=== PATIENT | male | born 1945 | race Caucasian/White ===

== ENCOUNTER 2016-06-01 19:35 | Emergency (ER) | payer OTHER, MEDICARE ==
[~2016-06-01] VITALS: Ht 188 cm; Wt 140.5 kg
[~2016-06-01 19:35] MED LIST: AMOX500C3 PO; CLOP1TAB15 PO; CLTP PO; CRS10 PO; CYAN3INJ IM; FLM4 PO; GLC500 PO; INSU70IN2 SC; METO25TA3 PO; NRN100 PO; PEDICHW50 PO; VENL75TA4 PO
[2016-06-01 19:38] VITALS: TEMP 36.8; Ht 188 cm; Wt 140.5 kg
[2016-06-01] MEDS ORDERED: DULO60CA44 PO (19:59)
[2016-06-01] MEDS ORDERED: CIPROFLOXACIN HCL 0.3% OP SOLN 2.5 ML BTL OP STA (21:03)
--- NOTE | 2016-06-01 21:07 | EMERGENCY ROOM VISIT NOTE ---
History First contact with patient: 19:55 Chief Complaint: EYE ASSESSMENT Stated Complaint: RIGHT EYE BLOODSHOT History of Present Illness The patient is a 70 year old male who presents to the Emergency Room with complaints of "right eye blood shot". This began at approximately 4:30 PM when he was sitting on the couch and noticed his right eye became itchy. He rates the irritation as 2-3/10 but not painful. He is on plavix for a stent placement. His is concerned due to the spreading redness of the eye. He denies any vision changes, trauma to the eye, getting anything into the eye, or hx of glaucoma. He was to see his eye doctor last month and had a cataract removed nearly 1 year ago. . Review of Systems A complete 6-point Review of Systems was discussed with the patient, with pertinent positives and negatives listed in the History of Present Illness. All remaining Review of Systems questions can be considered negative unless otherwise specified. Past Medical/Surgical History Medical Problems: (1) Diabetic peripheral neuropathy associated with type 2 diabetes mellitus (2) Dysesthesia (3) Loss of sensation DM, Heart disease, HTN, Urinary problems Family History DM, Heart disease, HTN Social History Smoking Status: Never Smoker Drug Use: none Marital Status: Occupation Status: retired Social History: Patient lives at home with . Current/Historical Medications Scheduled Amoxicillin (Amoxil), 2,000 MG PO UD Calcium/Vitamin D (Caltrate 600 Plus *), 1 TAB PO BID Clopidogrel (Plavix), 75 MG PO QAM Cyanocobalamin (Vitamin B-12 Inj), 1 ML IM MONTHLY Duloxetine Hcl (Cymbalta), 60 MG PO BID Gabapentin (Gabapentin), 300 MG PO TID Insulin Isophan/Regular (Novolin 70/30), 36 UNITS SC QAM Insulin Isophan/Regular (Novolin 70/30), 26 UNITS SC QPM Metformin HCL (Glucophage *), 1,000 MG PO BID Metoprolol Succ (Toprol Xl) (Toprol-Xl), 25 MG PO BID Pediatric Multiple Vitamin W/ (Flintstones Chewable), 1 TAB PO BID Rosuvastatin Calcium (Crestor *), 10 MG PO QPM Tamsulosin Hcl (Flomax *), 0.8 MG PO HS Allergies Coded Allergies: Aspirin (Verified Allergy, Intermediate, HIVES, 06/01/16) Physical Exam Vital Signs Date Time Temp Pulse Resp B/P Pulse Ox O2 Delivery O2 Flow Rate FiO2 06/01/16 21:35 78 20 143/78 96 06/01/16 19:38 36.8 71 18 148/81 94 Room Air Right Eye Acuity: 20/20 -2 corrected Left Eye Acuity: 20/20 corrected Physical Exam VITAL SIGNS - Vital signs and nursing notes were reviewed. GENERAL - 70-year-old male appearing his stated age who is in no acute distress. Communicates well with provider and answers questions appropriately. SKIN - Without rashes. HEAD - NC/AT. No evidence of bruising. No Kidd's Sign or Raccoon's Eyes. No depressed skull fractures palpable. EYES - PERRL with EOMI bilaterally. Sclera anicteric. Evidence of subconjunctival hemorrhage in the right eye. Slit lamp examination performed as further described. EARS - No deformities of external structures noted on gross examination bilaterally. No hemorrhage from the ear canals. NOSE - Midline and without cyanosis. No epistaxis or purulent drainage noted. Septum midline without deviation or septal hematoma noted. MOUTH/OROPHARYNX - Without perioral cyanosis. Buccal mucosa pink and moist and without leukoplakia. Tongue midline with equal elevation of palate bilaterally. No tonsillar hypertrophy, erythema, or exudates noted. Good dentition noted. Slit Lamp Examination was performed of the right eye(s). The affected eye(s) were stained with Fluorescein stain to precipitate adequate visualization of any conjunctival/scleral excoriations or ulcers. The patient's face was comfortably rested on the chin guard of the slit lamp apparatus. The lights were dimmed and the affected eye(s) were thoroughly examined under microscopy using the blue light. 7:00 right eye corneal uptake was present not over the central axis of vision. This is consistent either with a localized abrasion or early corneal ulcer. Additionally, the eye(s) were examined under microscopy using the regular light. Close examination revealed subconjunctival hemorrhage without hyphema. Patient tolerated the procedure well and no complications were met. Medical Decision & Procedures Medications Administered Medications (Trade) Dose Ordered Sig/David Route Start Time Stop Time Status Last Admin Dose Admin Ciprofloxacin HCl (Ciprofloxacin 0.3% Op Soln) 2 drops NOW STAT OP 06/01/16 21:03 06/01/16 21:05 DC 06/01/16 21:34 2 DROPS Medical Decision Patient was seen and evaluated as above. After obtaining a thorough history and physical examination it was evident the patient was experiencing a subconjunctival hemorrhage in the right eye likely exacerbated by his Plavix use. The patient noted that before he looked in the mirror at his eye he was scratching it thinking that he had something in the eye. This likely precipitated the subconjunctival hemorrhage. There does not appear to be any current bleeding or involvement within the iris or pupil region. No hyphema. Negative Julianna sign. Because the uptake at the 4 o'clock position in a circular nature that is consistent with a likely corneal abrasion he will be placed on Ciloxan eyedrops 2 drops in the eye 4 times daily. The case was discussed with my attending and decision was made to contact the on-call clothes shaker. I spoke with Dr. Nicholson at 9:01 PM on 06/01/2016 and the case was explained to him. He recommended placing the patient on a ciprofloxacin eyedrops 4 times daily and having him follow-up with his clothes shaker tomorrow. Patient seemed happy with plan of care. Patient was provided with a bottle of the ciprofloxacin drops here and that will last him the duration. He is to call his clothes shaker tomorrow which is Dr. Bobo, and request follow-up. He was instructed to return with any concerns or problems. They were educated up on worrisome symptoms in which to return. He was repeatedly instructed to not skip his Plavix dose. They have questions answered prior to discharge and he was discharged home in good condition. In the evaluation and treatment of this patient following differential diagnoses were entertained: Corneal abrasion, subconjunctival hemorrhage, among others. Impression Primary Impression: Subconjunctival hemorrhage of right eye Additional Impression: Corneal abrasion Departure Information Dispostion Home / Self-Care Condition GOOD Referrals Pro,Gm Akbar M.D. (PCP) Navid Bobo M.D. Patient Instructions A Signature Page, My [facility] Additional Instructions You have been treated in the Emergency Department today for your Corneal Abrasion and Subconjunctival hemorrhage. You have been prescribed Ciloxan eye drops. This is an antibiotic which will help to prevent an infection from developing in your affected eye. You should use 2 drops in the affected eye every 4 hours for a 7-day course for these antibiotic eye drops. For pain control, you can use the following [id number] medicines (if >12 yo): - Regular strength (325mg/tab) Tylenol (acetaminophen) 2 tabs every 4-6 hours as needed. Do not exceed 12 tablets in a 24 hour period. Avoid taking more than 4 grams (4000 mg) of Tylenol per day. This includes any other sources of acetaminophen you may take on a regular basis. You should relax in a quiet, dark place for the rest of the day. You should wear sunglasses while outside for the next few days until your eyes are not as sensitive to the light. Please call Dr. Robles's office first thing tomorrow morning to schedule follow-up. Please request to be seen as soon as possible and indicated he receiving the emergency department. Return to the Emergency Department if your current symptoms worsen despite treatment course outlined above, or if you develop any of the following symptoms : intractable pain, visual disturbances, loss of vision, increased redness, swelling, drainage, or if you develop a fever. Please return to the emergency department with any new/concerning symptoms.
[2016-06-01 21:35] VITALS: BP 143/78; PULSE 78; O2SAT 96
--- NOTE | 2016-06-01 21:38 | EMERGENCY ROOM VISIT NOTE ---
ED Visit Note First contact with patient: 19:55 The patient was seen and examined with Nelson Estrella PA-C. I agree with the history, physical and findings. Please see the note for disposition and details.
[2016-10-27] MEDS ORDERED: CPR500 PO (13:56)
[2016-10-27] MEDS ORDERED: HYDR-5688 PO (14:00)
[2016-10-30] MEDS ORDERED: LOSA25TA18 PO (09:38)
[2016-10-30] MEDS ORDERED: TRAM-10 PO (09:38)
[2016-11-06] MEDS ORDERED: HYDR-5688 PO (12:27)
[2016-11-06] MEDS ORDERED: PHEN-775 PO (12:27)
[2016-11-06] MEDS ORDERED: POTATAB2 PO (14:25)
== END 2016-06-01 21:36 | disposition home or self-care (01) ==
LOC: C.EDB 19:36 → C.EDD 21:36
DX: H11.31 Conjunctival hemorrhage, right eye (principal); S05.01XA Injury of conjunctiva and corneal abrasion without foreign body, right eye, initial encounter; X58.XXXA Exposure to other specified factors, initial encounter; Z79.4 Long term (current) use of insulin; I10 Essential (primary) hypertension; E11.40 Type 2 diabetes mellitus with diabetic neuropathy, unspecified

== ENCOUNTER → 2016-09-25 | Outpatient (CLI) | payer OTHER, MEDICARE ==
[~2016-09-25] MED LIST changes: +CALCCAP17 PO; +CPR500 PO; +CRS/10 PO; +CYNI1000 PO; +DULO60CA44 PO; +GABA-112 PO; +HYDR-5688 PO; +LOSA25TA18 PO; +METF-841 PO; +PHEN-775 PO; +POTATAB2 PO; +TAMS0.4C38 PO; +TRAM-10 PO; -VENL75TA4 PO
[2016-09-25 10:45] LABS: BASO % 0.2 %; BASO ABS # 0.02 K/uL (0-0.2); COMPLETE YES; EOS % 2.9 %; HEMATOCRIT 40.6 % (42-52); IG% 0.1 %; LYMPH % 17.4 %; LYMPH ABS # 1.62 K/uL (1.2-3.4); MEAN CELL VOLUME 89.6 fL (80-100); MEAN CORPUSCULAR HGB CONC 31.3 g/dl (32-36); MEAN PLATELET VOLUME 10.8 fL (7.4-10.4); MONO % 10.7 %; NEUT % 68.7 %; PLATELET COUNT 144 K/uL (130-400); RED BLOOD COUNT 4.53 M/uL (4.7-6.1); WHITE BLOOD COUNT 9.31 K/uL (4.8-10.8)
[2016-09-25 10:56] LABS: ESTIMATED AVERAGE GLUCOSE 157 mg/dl; HA1C FLAG Normal (Normal)
[2016-09-25 10:57] LABS: URINE APPEARANCE TURBID (CLEAR); URINE COLOR DK YELLOW; URINE NITRITE NEG (NEG); URINE SPECIFIC GRAVITY 1.028 (1.000-1.030); UROBILINOGEN NEG (NEG); ZZUR CULT IF INDIC CLEAN CATCH YES
[2016-09-25 11:01] LABS: URINE BILIRUBIN 1+ (NEG)
[2016-09-25 11:02] LABS: MANUAL MICROSCOPIC REQUIRED? NO; REVIEW REQ? NO
[2016-09-25 11:11] LABS: CALCIUM 9.3 mg/dl (8.5-10.1)
[2016-09-25 11:14] LABS: BLOOD UREA NITROGEN 25 mg/dl (7-18); BUN/CREATININE RATIO 20.9 (10-20); CARBON DIOXIDE 30 mmol/L (21-32); CHLORIDE 101 mmol/L (98-107); GLUCOSE 132 mg/dl (70-99); POTASSIUM 3.9 mmol/L (3.5-5.1); SODIUM 136 mmol/L (136-145)
[2016-09-25 11:20] LABS: FERRITIN 218.9 ng/ml (8.0-388.0); TOTAL IRON BINDING CAPACITY 301 mcg/dl (250-450)
--- NOTE | 2016-10-01 12:01 | CODING QUERY MEDICAL NECESSITY ---
CQSUPPORTING DIAGNOSIS NEEDED A supporting diagnosis is required for the test/procedure performed on this patient in order for us to be reimbursed by the patient's insurance. Please provide a supporting diagnosis for the following test/procedure listed below next to the test name along with your signature. *If there is no additional diagnosis for this patient that would support the following test/procedure please document that below next to the test/procedure. Test(s)/Procedure(s) that require a supporting diagnosis: DOS 09/25/16 VITAMIN D TEST Provider Signature: Date: Thank you Meka Yañez Health Information Management Once completed, please kindly fax back to [phone] For questions please call [phone]
== END | disposition home or self-care (01) ==
LOC: C.LAB1850 09:23
PROVIDERS: ATTEND Internal Medicine
DX: E11.8 Type 2 diabetes mellitus with unspecified complications (principal); R30.0 Dysuria; D64.9 Anemia, unspecified; M17.10 Unilateral primary osteoarthritis, unspecified knee

== ENCOUNTER 2016-10-24 15:07 | Inpatient (IN) | payer OTHER, MEDICARE ==
[~2016-10-24] VITALS: Ht 188 cm; Wt 133.4 kg
[~2016-10-24 15:07] MED LIST changes: -CALCCAP17 PO; -CPR500 PO; -CRS/10 PO; -CYNI1000 PO; -GABA-112 PO; -HYDR-5688 PO; -LOSA25TA18 PO; -METF-841 PO; -PHEN-775 PO; -POTATAB2 PO; -TAMS0.4C38 PO; -TRAM-10 PO
[2016-10-24] MEDS ORDERED: CYNI1000 PO (15:44)
[2016-10-24] MEDS ORDERED: TAMS0.4C38 PO (15:44)
[2016-10-24] MEDS ORDERED: METF-841 PO (15:44)
[2016-10-24] MEDS ORDERED: CRS/10 PO (15:44)
[2016-10-24] MEDS ORDERED: CALCCAP17 PO (15:44)
[2016-10-24] MEDS ORDERED: GABA-112 PO (15:46)
[2016-10-24] MEDS ORDERED: SODIUM CHLORIDE 0.9% 1000ML 1,000 ML IV STA (16:37)
[2016-10-24 17:16] LABS: BASO % 0.2 %; BASO ABS # 0.02 K/uL (0-0.2); COMPLETE YES; EOS % 1.2 %; HEMATOCRIT 34.8 % (42-52); IG% 0.3 %; LYMPH % 10.3 %; LYMPH ABS # 1.36 K/uL (1.2-3.4); MEAN CELL VOLUME 86.6 fL (80-100); MEAN CORPUSCULAR HEMOGLOBIN 28.9 pg (25-34); MEAN CORPUSCULAR HGB CONC 33.3 g/dl (32-36); MEAN PLATELET VOLUME 10.1 fL (7.4-10.4); MONO % 17.5 %; NEUT % 70.5 %; PLATELET COUNT 165 K/uL (130-400); RED BLOOD COUNT 4.02 M/uL (4.7-6.1); WHITE BLOOD COUNT 13.22 K/uL (4.8-10.8)
[2016-10-24 17:27] LABS: PROTHROMBIN TIME (PATIENT) 11.2 SECONDS (9.0-12.0)
[2016-10-24 17:32] LABS: URINE APPEARANCE CLOUDY (CLEAR); URINE COLOR DK YELLOW; URINE NITRITE POS (NEG); URINE SPECIFIC GRAVITY 1.024 (1.000-1.030); UROBILINOGEN NEG (NEG); ZZUR CULT IF INDIC CLEAN CATCH YES
[2016-10-24 17:36] LABS: MANUAL MICROSCOPIC REQUIRED? NO; REVIEW REQ? YES; URINE BILIRUBIN NEG (NEG)
[2016-10-24] MEDS ORDERED: PIPERACILLIN/TAZOBACTAM 3.375 GM/100ML D5W IV STA (17:39)
[2016-10-24 17:44] LABS: URINE PATH CASTS 1-5 GRANULAR CASTS /lpf (0)
[2016-10-24 17:46] LABS: ALB/GLOB RATIO 0.6 (0.9-2); ALKALINE PHOSPHATASE 82 U/L (45-117); ALT/SGPT 24 U/L (12-78); AST/SGOT 28 U/L (15-37); BLOOD UREA NITROGEN 19 mg/dl (7-18); BUN/CREATININE RATIO 14.6 (10-20); CALCIUM 8.4 mg/dl (8.5-10.1); CARBON DIOXIDE 27 mmol/L (21-32); CHLORIDE 99 mmol/L (98-107); GLUCOSE 158 mg/dl (70-99); POTASSIUM 4.8 mmol/L (3.5-5.1); SODIUM 133 mmol/L (136-145)
--- NOTE | 2016-10-24 17:53 | DIAGNOSTIC IMAGING REPORT ---
CHEST 2 VIEWS ROUTINE CLINICAL HISTORY: Shortness of breath. COMPARISON STUDY: No previous studies for comparison. FINDINGS: Lung volumes are at the lower limits of normal. There is no consolidation to suggest pneumonia. Cardiac size is normal. There is no evidence of pulmonary edema. There is no pneumothorax or pleural effusion. IMPRESSION: No acute cardiopulmonary findings. Electronically signed by: Vinicio Horvath M.D. 10/24/2016 5:52 PM Dictated Date/Time: 10/24/2016 5:51 PM
[2016-10-24] MEDS ORDERED: PIPERACILL/TAZOBAC IV 3.375 GM in DEXTROSE 5% 100ML IV ONE (18:00)
[2016-10-24] MEDS ORDERED: OPTIRAY 320 IV PRN (18:15)
--- NOTE | 2016-10-24 19:30 | DIAGNOSTIC IMAGING REPORT ---
CT OF THE ABDOMEN AND PELVIS WITH CONTRAST CLINICAL HISTORY: Back pain. Urinary tract infection. COMPARISON STUDY: CT of the abdomen and pelvis November 18, 2009. TECHNIQUE: Following IV administration of 114 mL of Optiray-320, axial images of the abdomen and pelvis were obtained from the lung bases to the proximal femurs. Images were reviewed in the axial, sagittal, and coronal planes. IV contrast was administered without complication. CT DOSE: 2234.51 mGy.cm FINDINGS: Visualized portions of the lower chest demonstrate moderate cardiomegaly and trace bilateral pleural effusions. Post surgical findings of the stomach are noted. The liver, spleen, adrenal glands and pancreas are normal. There is a complex ventral hernia. There is no bowel obstruction. There is eventration of the anterior abdominal wall. Note is made of a 6 cm left renal cyst. There is a 4 mm left renal calculus. Note is made of a 5 mm nonobstructing distal right ureteral calculus. There are no bladder calculi. There is moderate symmetric bilateral perinephric infiltration. There is apparent hypoenhancement of the lower poles of both kidneys which could be artifactual. There is no renal abscess. The appendix is not visualized. There is colonic diverticulosis without evidence for acute diverticulitis. There are no suspicious osseous lesions. IMPRESSION: 1. 5 mm nonobstructing distal right ureteral calculus and a 4 mm left renal calculus. No hydronephrosis. 2. Moderate symmetric bilateral perinephric infiltration with apparent hypoenhancement of the lower poles of both kidneys. This could be artifactual although pyelonephritis could have this imaging appearance. No renal abscess. 3. Moderate cardiomegaly and trace bilateral pleural effusions. Electronically signed by: Vinicio Horvath M.D. 10/24/2016 7:28 PM Dictated Date/Time: 10/24/2016 7:22 PM
[2016-10-24] MEDS ORDERED: TAMSULOSIN HCL 0.4 MG CAP PO ONE (20:00)
[2016-10-24] MEDS ORDERED: ACETAMINOPHEN 500 MG TAB PO STA (21:28)
--- NOTE | 2016-10-24 21:29 | EMERGENCY ROOM VISIT NOTE ---
History Report prepared by Deion: Vika Gonzales Under the Supervision of: Dr. Adela Gamboa D.O. First contact with patient: 15:50 Chief Complaint: URINARY SYMPTOMS Stated Complaint: URINARY TRAC INFECTION Nursing Triage Summary: pt dx at pcp on thursday with uti. pt has been getting sweats and fever intermittently. pt recently loss last week. has been taking antibiotic for 7 days. using 1 gm tylenol every 6 hours. called pcp today sent here for further eval pt has been having difficulty urinating. bilat kidney/flank pain History of Present Illness The patient is a 71 year old male who presents to the Emergency Room with complaints of persistent urinary symptoms that started 4-5 days ago. The patient saw his PCP 3 days ago and was started on Macrobid secondary to microscopic hematuria. He has a follow-up with his PCP scheduled for Thursday. The patient's PCP did not have enough urine to do a urine culture so they were going to culture his urine on Thursday. He states that he is still having difficulty urinating as well as intermittent fevers. The patient's daughter states that the patient has been experiencing fluctuating fevers between 99 and 102. The fevers are relieved with Tylenol. He also experienced chills last night and was shivering while lying under 3 blankets. The patient's daughter called the patient's PCP and the nurse recommended coming into the ED due to the persistent fevers. The patient is also experiencing lightheadedness and dizziness, which his daughter states seems to have somewhat improved. The patient also experienced dyspnea on exertion prior to bed last night. He denies any recent cough or colds and any chest pain or pressure. The patient's daughter states that the patient's 2 weeks ago and he has not been eating much since then. Due to the decreased food consumption, the patient has been experiencing decreased frequency in his bowel movements. The patient's family adds that he has been sleeping a lot over the past 2 weeks and has lost 18-20 pounds. The patient was told that he might have some kidney stones. The patient states that he is also experiencing bilateral flank pain. The patient was diagnosed with an UTI at the end of August and has not followed up with his PCP since then so they are unsure of if the infection ever resolved. The patient is diabetic and his sugars have been running in the low 200s, but last night it was 248. However, the patient states that he forgot to take his insulin. Source of History: patient, family Onset: 4-5 days ago Position: other (urinary tract) Quality: other (urinary symptoms) Timing: other (persistent) Associated Symptoms: + SOB (dyspnea on exertion), + back pain (bilateral flank pain), + chills, + fevers, No chest pain, No cough Note: lightheadedness and dizziness, no recent colds Review of Systems See HPI for pertinent positives & negatives. A total of 10 systems reviewed and were otherwise negative. Past Medical & Surgical Medical Problems: (1) Balance disorder (2) Diabetic peripheral neuropathy associated with type 2 diabetes mellitus (3) Dysesthesia (4) Loss of sensation (5) Sepsis (6) UTI (urinary tract infection) Family History Diabetes mellitus Heart disease Hypertension Social History Smoking Status: Never Smoker Drug Use: none Marital Status: Occupation Status: retired Current/Historical Medications Scheduled Amoxicillin (Amoxil), 2,000 MG PO UD Calcium Carbonate-Vitamin D (Calcium/Vitamin D), 1 CAP PO DAILY Clopidogrel (Plavix), 75 MG PO QAM Cyanocobalamin (Cyanocobalamin), 1,000 MCG PO MONTHLY Duloxetine Hcl (Cymbalta), 60 MG PO DAILY Gabapentin (Gabapentin), 400 MG PO BID Insulin Isophan/Regular (Novolin 70/30), 36 UNITS SC QAM Insulin Isophan/Regular (Novolin 70/30), 26 UNITS SC QPM Metformin HCl (Metformin HCl ER), 1,000 MG PO BID Metoprolol Succ (Toprol Xl) (Toprol-Xl), 25 MG PO BID Pediatric Multiple Vitamin W/ (Flintstones Chewable), 1 TAB PO BID Rosuvastatin Calcium (Crestor), 10 MG PO QPM Tamsulosin Hcl (Flomax), 0.8 MG PO HS Scheduled PRN Gabapentin (Neurontin), 200 MG PO DIRECTED PRN for Pain Allergies Coded Allergies: Aspirin (Verified Allergy, Intermediate, HIVES, 10/24/16) Physical Exam Vital Signs Date Time Temp Pulse Resp B/P Pulse Ox O2 Delivery O2 Flow Rate FiO2 10/24/16 21:25 38.0 84 20 159/77 94 Room Air 10/24/16 19:15 82 20 121/65 95 Room Air 10/24/16 17:20 73 18 122/69 97 Room Air 10/24/16 15:21 36.7 84 18 99/68 94 Room Air Physical Exam GENERAL: alert, well appearing, well nourished, no distress, non-toxic EYE EXAM: normal conjunctiva, PERRL and EOM's grossly intact OROPHARYNX: no exudate, no erythema, lips, buccal mucosa, and tongue normal and mucous membranes are mildly dry. NECK: supple, no nuchal rigidity, no adenopathy, non-tender LUNGS: Clear to auscultation. Normal chest wall mechanics HEART: no murmurs, S1 normal and S2 normal ABDOMEN: abdomen soft, non-tender, normo-active bowel sounds, no masses, no rebound or guarding. BACK: Back is symmetrical on inspection and there is no deformity, no midline tenderness, no CVA tenderness. SKIN: no rashes and no bruising UPPER EXTREMITIES: upper extremities are grossly normal. LOWER EXTREMITIES: No pitting edema. NEURO EXAM: Normal sensorium, cranial nerves II-XII grossly intact, normal speech, no gross weakness of arms, no gross weakness of legs. Medical Decision & Procedures ER Provider Diagnostic Interpretation: Radiology results have been interpreted by the radiologist and reviewed by me. CHEST 2 VIEWS ROUTINE FINDINGS: Lung volumes are at the lower limits of normal. There is no consolidation to suggest pneumonia. Cardiac size is normal. There is no evidence of pulmonary edema. There is no pneumothorax or pleural effusion. IMPRESSION: No acute cardiopulmonary findings. Electronically signed by: Vinicio Horvath M.D. 10/24/2016 5:52 PM Dictated Date/Time: 10/24/2016 5:[address] OF THE ABDOMEN AND PELVIS WITH CONTRAST FINDINGS: Visualized portions of the lower chest demonstrate moderate cardiomegaly and trace bilateral pleural effusions. Post surgical findings of the stomach are noted. The liver, spleen, adrenal glands and pancreas are normal. There is a complex ventral hernia. There is no bowel obstruction. There is eventration of the anterior abdominal wall. Note is made of a 6 cm left renal cyst. There is a 4 mm left renal calculus. Note is made of a 5 mm nonobstructing distal right ureteral calculus. There are no bladder calculi. There is moderate symmetric bilateral perinephric infiltration. There is apparent hypoenhancement of the lower poles of both kidneys which could be artifactual. There is no renal abscess. The appendix is not visualized. There is colonic diverticulosis without evidence for acute diverticulitis. There are no suspicious osseous lesions. IMPRESSION: 1. 5 mm nonobstructing distal right ureteral calculus and a 4 mm left renal calculus. No hydronephrosis. 2. Moderate symmetric bilateral perinephric infiltration with apparent hypoenhancement of the lower poles of both kidneys. This could be artifactual although pyelonephritis could have this imaging appearance. No renal abscess. 3. Moderate cardiomegaly and trace bilateral pleural effusions. Electronically signed by: Vinicio Horvath M.D. 10/24/2016 7:28 PM Dictated Date/Time: 10/24/2016 7:22 PM Laboratory Results Test 10/24/16 16:47 10/24/16 17:12 10/24/16 17:51 Prothrombin Time 11.2 SECONDS (9.0-12.0) Prothromb Time International Ratio 1.0 (0.9-1.1) Total Bilirubin 0.4 mg/dl (0.2-1) Aspartate Amino Transf (AST/SGOT) 28 U/L (15-37) Alanine Aminotransferase (ALT/SGPT) 24 U/L (12-78) Alkaline Phosphatase 82 U/L (45-117) Troponin I < 0.015 ng/ml (0-0.045) Pro-B-Type Natriuretic Peptide 1308 pg/ml (0-900) Total Protein 7.1 gm/dl (6.4-8.2) Albumin 2.7 gm/dl (3.4-5.0) Globulin 4.4 gm/dl (2.5-4.0) Albumin/Globulin Ratio 0.6 (0.9-2) Chemistry Specimen Hemolysis Urine Color DK YELLOW Urine Appearance CLOUDY (CLEAR) Urine pH 5.0 (4.5-7.5) Urine Specific [place] 1.024 (1.000-1.030) Urine Protein 1+ (NEG) Urine Glucose (UA) NEG (NEG) Urine Ketones 1+ (NEG) Urine Occult Blood 1+ (NEG) Urine Nitrite POS (NEG) Urine Bilirubin NEG (NEG) Urine Urobilinogen NEG (NEG) Urine Leukocyte Esterase MODERATE (NEG) Urine WBC (Auto) >30 /hpf (0-5) Urine RBC (Auto) 5-10 /hpf (0-4) Urine Hyaline Casts (Auto) 0 /lpf (0-5) Urine Epithelial Cells (Auto) 10-20 /lpf (0-5) Urine Bacteria (Auto) 4+ (NEG) Urine Pathogenic Casts 1-5 GRANULAR CASTS /lpf (0) Lactic Acid Level 1.5 mmol/L (0.4-2.0) Date/Time Source Procedure Growth Status 10/24/16 17:12 Urine , Clean Catch Urine Culture - Final Klebsiella Pneumoniae Complete Laboratory results per my review. Medications Administered Medications (Trade) Dose Ordered Sig/David Route Start Time Stop Time Status Last Admin Dose Admin Sodium Chloride 1,000 ml @ 999 mls/hr Q1H1M STAT IV 10/24/16 16:37 10/24/16 17:37 DC 10/24/16 17:24 999 MLS/HR Piperacillin Sod/ Tazobactam Sod/ Dextrose (Zosyn Iv/D5 100ml) 115 ml @ 230 mls/hr 1800 ONCE IV 10/24/16 18:00 10/24/16 18:29 DC 10/24/16 18:05 230 MLS/HR Tamsulosin HCl (Flomax Cap) 0.4 mg NOW ONCE PO 10/24/16 20:00 10/24/16 20:01 DC 10/24/16 19:56 0.4 MG Acetaminophen (Tylenol Tab) 1,000 mg NOW STAT PO 10/24/16 21:28 10/24/16 21:29 DC 10/24/16 22:13 1,000 MG ECG Indication: SOB/dyspnea Rate (beats per minute): 69 Rhythm: sinus rhythm Findings: Q waves (lead III and aVF), no acute ischemic change, other (normal axis, mild interventricular conduction delay) ED Course 1609: The patient was evaluated in room C10. A complete history and physical exam was performed. 1636: Ordered Sodium Chloride 1000 ml @ 999 mls/hr IV 1800: Ordered Piperacillin Sod/Tazobactam Sod 3.375 gm/Dextrose 115 ml @ 230 mls /hr Protocol IV 1921: I reassessed the patient. He is resting comfortably. I updated him on the results that are back so far and I informed him that we are just waiting on his CT scan. 1957: I reassessed the patient. I also updated the patient and his family. On additional interview, patient admits to history of chronic low back pain which she felt slightly worse recently, although he attributed this to recent change in activity with the loss of spouse. 1999: Ordered Flomax Cap 0.4 mg PO 2104: I reviewed the patient's case with Dr. Otilio Julian. He recommends keeping the patient NPO and does not believe that he has fulminant pyelonephritis, but he agrees with the plan for admission. 2114: I reviewed the patient's case with Dr. Yesica LEONARD. He will evaluate the patient for further management. 2118: Upon reevaluation, the patient is resting comfortably. I discussed the findings and the treatment plan with the patient. He expresses agreement and understanding. He will be evaluated for further management. Medical Decision Differential diagnoses includes but is not limited to UTI, pyelonephritis, dehydration, acute renal failure. Medication Reconciliation: I attest that I have personally reviewed the patient' s current medication list. Blood pressure screening: Patient was found to have an elevated blood pressure and was referred to their primary doctor for recheck and further treatment. She well-appearing with stable vital signs despite complaints and findings on labs and imaging. Concern for ascending urinary tract infection and possible early pyelonephritis given CT findings as well as concurrent finding of ureterolithiasis. No evidence for acute renal dysfunction. Patient afebrile here but did have confirmed fevers at home by family of up to 102. Given patient's age, comorbidities, a sending urinary tract infection, with concurrent stone, patient admitted for additional monitoring and treatment. Patient does not appear septic at this time, blood and urine culture sent as precaution and patient covered empirically with IV antibiotics. Patient tolerating by mouth at bedside, stated pain was controlled at the time of admission. No additional recommendations made by the hospitalist at the time of presentation for admission. Consults Time Called: 2041 Consulting Physician: Dr. Otilio Julian Returned Call: 2104 I reviewed the patient's case with Dr. Otilio Julian. He recommends keeping the patient NPO and does not believe that he has fulminant pyelonephritis, but he agrees with the plan for admission. Additional Consults: Time Called: 2112 Consulted Physician: Dr. Yesica LEONARD Returned Call: 2114 Additional Comments: I reviewed the patient's case with Dr. Yesica LEONARD. He will evaluate the patient for further management. Impression Primary Impression: Urinary tract infection Additional Impressions: Fatigue Back pain Ureterolithiasis Scribe Attestation The scribe's documentation has been prepared under my direction and personally reviewed by me in its entirety. I confirm that the note above accurately reflects all work, treatment, procedures, and medical decision making performed by me. Departure Information Dispostion Being Evaluated By Hospitalist Referrals ProGm M.D. (PCP) Patient Instructions My [facility] Problem Qualifiers Primary Impression: Urinary tract infection Urinary tract infection type: site unspecified Hematuria presence: with hematuria Qualified Codes: N39.0 - Urinary tract infection, site not specified ; R31.9 - Hematuria, unspecified Additional Impressions: Fatigue Fatigue type: unspecified Qualified Codes: R53.83 - Other fatigue Back pain Back pain location: back pain in unspecified location Chronicity: acute Back pain laterality: bilateral Qualified Codes: M54.9 - Dorsalgia, unspecified
[2016-10-25] VITALS (10 sets, daily range): BP systolic 132–166; BP diastolic 67–83; PULSE 63–89; TEMP 36.7–37.2; O2SAT 90–97; Ht 188 cm; Wt 133.4 kg
[2016-10-25] MEDS ORDERED: ONDANSETRON INJ 2 MG/ML 2 ML VIAL IV PRN ×2 (00:45→10:45)
[2016-10-25] MEDS ORDERED: MAGNESIUM HYDROXIDE SUSP 30 ML UDC PO PRN (00:45)
[2016-10-25] MEDS ORDERED: ZOLPIDEM TARTRATE 5 MG TAB PO PRN (00:45)
[2016-10-25] MEDS ORDERED: ALUMINUM/MAGNESIUM/SIMETH (MAALOX MAX) 30 ML UDC PO PRN (00:45)
--- NOTE | 2016-10-25 01:19 | History and Physical ---
History & Physical Date & Time of Service: October 25, 2016 at 01:01 Chief Complaint: Urinary Trac Infection Primary Care Physician: Gm Villatoro M.D. History of Present Illness Source: patient, family 71 y/o M Hx CAD, HTN, HPL, DM. Pt was at his primary MDs office earlier in the week and had a routine UA. This revealed microhematuria and he was placed on Macrobid as a result. No cultures were obtained at the time. The pt over the last 2-3 days has had fevers of up to 102, back pain and per his children a degree of confusion. A CT abdomen was obtained in the ER which showed a 5mm nonobstructing calculus at the distal R ureter and B/L enhancement which may be consistent with pyelonephritis. The pt denies nausea, vomiting or dysuria. The pt is additionally grieving the loss of his who last week following an ME. Past Medical/Surgical History 1) CAD - history of cath and single stent. 2) HTN 3) HPL 4) Obesity 5) DM 2 6) Renal calculi 7) History of gastric bypass Family History Diabetes mellitus Heart disease Hypertension Both parents following MIs Social History Retired pharmacy benefit manager at [employer] Smoking Status: Never Smoker Drug Use: none Marital Status: Housing status: lives with family Occupational Status: retired Multi-Drug Resistant Organisms History of MDRO: No Allergies Coded Allergies: Aspirin (Verified Allergy, Intermediate, HIVES, 10/24/16) Home Medications Scheduled Amoxicillin (Amoxil), 2,000 MG PO UD Calcium Carbonate-Vitamin D (Calcium/Vitamin D), 1 CAP PO DAILY Clopidogrel (Plavix), 75 MG PO QAM Cyanocobalamin (Cyanocobalamin), 1,000 MCG PO MONTHLY Duloxetine Hcl (Cymbalta), 60 MG PO DAILY Gabapentin (Gabapentin), 400 MG PO BID Insulin Isophan/Regular (Novolin 70/30), 36 UNITS SC QAM Insulin Isophan/Regular (Novolin 70/30), 26 UNITS SC QPM Metformin HCl (Metformin HCl ER), 1,000 MG PO BID Metoprolol Succ (Toprol Xl) (Toprol-Xl), 25 MG PO BID Pediatric Multiple Vitamin W/ (Flintstones Chewable), 1 TAB PO BID Rosuvastatin Calcium (Crestor), 10 MG PO QPM Tamsulosin Hcl (Flomax), 0.8 MG PO HS Scheduled PRN Gabapentin (Neurontin), 200 MG PO DIRECTED PRN for Pain Review of Systems Constitutional: + chills, + fatigue, + fever, + sweats Eyes: No eye pain, No worsening of vision ENT: No hearing loss, No nasal symptoms, No unusual epistaxis Respiratory: No cough, No sputum, No wheezing Cardiovascular: No PND, No chest pain, No orthopnea Abdomen: No pain, No vomiting Musculoskeletal: + muscle pain, + problem reported (B/L back pain - may be largely chronic), No joint pain Genitourinary - Male: + hematuria (per UA - did not have gross hematuria), No dysuria, No urinary frequency, No urinary urgency Neurologic: No memory loss, No paralysis, No weakness Psychiatric: No depression symptoms Endocrine: + fatigue Hematologic / Lymphatic: No abnormal bleeding/bruising Integumentary: No rash Allergic / Immunologic: No environmental allergies Physical Exam Vital Signs Date Time Temp Pulse Resp B/P Pulse Ox O2 Delivery O2 Flow Rate FiO2 10/24/16 21:25 38.0 84 20 159/77 94 Room Air 10/24/16 19:15 82 20 121/65 95 Room Air 10/24/16 17:20 73 18 122/69 97 Room Air 10/24/16 15:21 36.7 84 18 99/68 94 Room Air General Appearance: WD/WN, no apparent distress, + pertinent finding (Obese elderly male - AAO x 3 - no distress) Head: normocephalic, atraumatic Eyes: normal inspection, EOMI ENT: normal ENT inspection, pharynx normal Neck: supple, no JVD Respiratory/Chest: chest non-tender, lungs clear, normal breath sounds, no respiratory distress, no accessory muscle use Cardiovascular: regular rate, rhythm, no edema, no gallop, no murmur, normal peripheral pulses Abdomen/GI: normal bowel sounds, non tender, soft Back: normal inspection, no CVA tenderness, no muscle spasm Extremities/Musculoskelatal: normal inspection, no calf tenderness, normal capillary refill, no pedal edema, normal range of motion 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, no motor/sensory deficits, alert, normal mood/affect, normal reflexes, oriented x 3 Skin: normal color, warm/dry, no rash Diagnostics Laboratory Results Results Past 24 Hours Test 10/24/16 16:47 10/24/16 17:12 10/24/16 17:51 Range/Units White Blood Count 13.22 4.8-10.8 K/uL Red Blood Count 4.02 4.7-6.1 M/uL Hemoglobin 11.6 14.0-18.0 g/dL Hematocrit 34.8 42-52 % Mean Corpuscular Volume 86.6 80-100 fL Mean Corpuscular Hemoglobin 28.9 25-34 pg Mean Corpuscular Hemoglobin Concent 33.3 32-36 g/dl Platelet Count 165 130-400 K/uL Mean Platelet Volume 10.1 7.4-10.4 fL Neutrophils (%) (Auto) 70.5 % Lymphocytes (%) (Auto) 10.3 % Monocytes (%) (Auto) 17.5 % Eosinophils (%) (Auto) 1.2 % Basophils (%) (Auto) 0.2 % Neutrophils # (Auto) 9.32 1.4-6.5 K/uL Lymphocytes # (Auto) 1.36 1.2-3.4 K/uL Monocytes # (Auto) 2.32 0.11-0.59 K/uL Eosinophils # (Auto) 0.16 0-0.5 K/uL Basophils # (Auto) 0.02 0-0.2 K/uL RDW Standard Deviation 45.0 36.4-46.3 fL RDW Coefficient of Variation 14.1 11.5-14.5 % Immature Granulocyte % (Auto) 0.3 % Immature Granulocyte # (Auto) 0.04 0.00-0.02 K/uL Prothrombin Time 11.2 9.0-12.0 SECONDS Prothromb Time International Ratio 1.0 0.9-1.1 Sodium Level 133 136-145 mmol/L Potassium Level 4.8 3.5-5.1 mmol/L Chloride Level 99 98-107 mmol/L Carbon Dioxide Level 27 21-32 mmol/L Anion Gap 7.0 3-11 mmol/L Blood Urea Nitrogen 19 7-18 mg/dl Creatinine 1.30 0.60-1.40 mg/dl Est Creatinine Clear Calc Drug Dose 75.7 ml/min Estimated GFR () 63.6 Estimated GFR (Non- 54.9 BUN/Creatinine Ratio 14.6 10-20 Random Glucose 158 70-99 mg/dl Calcium Level 8.4 8.5-10.1 mg/dl Total Bilirubin 0.4 0.2-1 mg/dl Aspartate Amino Transf (AST/SGOT) 28 15-37 U/L Alanine Aminotransferase (ALT/SGPT) 24 12-78 U/L Alkaline Phosphatase 82 45-117 U/L Troponin I < 0.015 0-0.045 ng/ml Pro-B-Type Natriuretic Peptide 1308 0-900 pg/ml Total Protein 7.1 6.4-8.2 gm/dl Albumin 2.7 3.4-5.0 gm/dl Globulin 4.4 2.5-4.0 gm/dl Albumin/Globulin Ratio 0.6 0.9-2 Chemistry Specimen Hemolysis Urine Color DK YELLOW Urine Appearance CLOUDY CLEAR Urine pH 5.0 4.5-7.5 Urine Specific [place] 1.024 1.000-1.030 Urine Protein 1+ NEG Urine Glucose (UA) NEG NEG Urine Ketones 1+ NEG Urine Occult Blood 1+ NEG Urine Nitrite POS NEG Urine Bilirubin NEG NEG Urine Urobilinogen NEG NEG Urine Leukocyte Esterase MODERATE NEG Urine WBC (Auto) >30 0-5 /hpf Urine RBC (Auto) 5-10 0-4 /hpf Urine Hyaline Casts (Auto) 0 0-5 /lpf Urine Epithelial Cells (Auto) 10-20 0-5 /lpf Urine Bacteria (Auto) 4+ NEG Urine Pathogenic Casts 1-5 GRANULAR CASTS 0 /lpf Lactic Acid Level 1.5 0.4-2.0 mmol/L Microbiology Results 10/24/16 Blood Culture, Received Pending 10/24/16 Blood Culture, Received Pending 10/24/16 Urine Culture, Received Pending Diagnostic Radiology CT abdomen 1. 5 mm nonobstructing distal right ureteral calculus and a 4 mm left renal calculus. No hydronephrosis. 2. Moderate symmetric bilateral perinephric infiltration with apparent hypoenhancement of the lower poles of both kidneys. This could be artifactual although pyelonephritis could have this imaging appearance. No renal abscess. 3. Moderate cardiomegaly and trace bilateral pleural effusions. Impression Assessment and Plan 71 y/o M Hx CAD, HTN, HPL, DM. Pt was at his primary MDs office earlier in the week and had a routine UA. This revealed microhematuria and he was placed on Macrobid as a result. No cultures were obtained at the time. The pt over the last 2-3 days has had fevers of up to 102, back pain and per his children a degree of confusion. A CT abdomen was obtained in the ER which showed a 5mm nonobstructing calculus at the distal R ureter and B/L enhancement which may be consistent with pyelonephritis. The pt denies nausea, vomiting or dysuria. 1) UTI / Pyelonephritis - Pt placed on Unasyn pending culture results - BP has been stable and lactic is WNL - 1l IVF provided in ER. Initially provided with Zosyn x 2 doses in the ER. 2) Ureteral calculus - Urology consulted - likely to pass spontaneously as it is currently nonobstructing and has migrated distally. He does not appear to be having related pain. He has microhematuria but no evidence of significant bleeding. 3) DM - placed on SS 4) HTN - cont Metoprolol 5) CAD - no evidence of ACS - cont Plavix, B moncho, Statin Full code - SCDs pending urology eval - should likely be laced on Heparin if no intervention needed. Total time for this admit including review of labs, meds, EKG - discussion with pt and ER attending - 38 min. Level of Care Med/Surg Resuscitation Status FULL RESUSCITATION VTE Prophylaxis VTE Risk Assessment Done? Y/N: Yes Risk Level: Moderate Given or contraindicated: SCD's
[2016-10-25] MEDS ORDERED: SODIUM CHLORIDE 0.9% 1000ML 1,000 ML IV SCH (01:30)
[2016-10-25] MEDS ORDERED: GLUCOSE 40% GEL 15 GM TUBE PO PRN (02:45)
[2016-10-25] MEDS ORDERED: GLUCAGON FOR INJ 1 MG VIAL SQ PRN (02:45)
[2016-10-25] MEDS ORDERED: DEXTROSE 50% 50 ML SYR IV PRN (02:45)
[2016-10-25] MEDS ORDERED: GLUCOSE 10 TABS/TUBE PO PRN (02:45)
[2016-10-25] MEDS ORDERED: AMPICILLIN/SULBACTAM CONSULT ACTIVE PRN ×2 (03:00)
[2016-10-25] MEDS: AMPICILLIN/SULBACTAM SOD INJ 3,000 MG in SODIUM CHLORIDE 0.9% 100ML 100 ML IV SCH ×3 (05:55→18:04)
[2016-10-25 06:42] LABS: MEAN CELL VOLUME 87.1 fL (80-100); MEAN CORPUSCULAR HEMOGLOBIN 28.4 pg (25-34); MEAN CORPUSCULAR HGB CONC 32.6 g/dl (32-36); MEAN PLATELET VOLUME 10.4 fL (7.4-10.4); PLATELET COUNT 187 K/uL (130-400); RED BLOOD COUNT 4.02 M/uL (4.7-6.1); WHITE BLOOD COUNT 13.03 K/uL (4.8-10.8)
[2016-10-25 07:24] LABS: BUN/CREATININE RATIO 14.2 (10-20); CALCIUM 8.2 mg/dl (8.5-10.1); CREATININE 1.3 mg/dl (0.60-1.40); POTASSIUM 3.8 mmol/L (3.5-5.1)
--- NOTE | 2016-10-25 08:01 | Family Medicine Progress Note ---
Progress Note Date of Service October 25, 2016. Subjective Pt evaluation today including: conversation w/ patient, physical exam, chart review, lab review Patient feels well post procedure, better than he has felt in days. Patient's children at bedside, questions and concerns were addressed to their satisfaction. Constitutional: No chills, No fever Respiratory: No shortness of breath Cardiovascular: No chest pain, No edema, No palpitations Abdomen: No pain Male : + problem reported (Some suprepubic pressure felt), No dysuria Objective Vital Signs Date Time Temp Pulse Resp B/P Pulse Ox O2 Delivery O2 Flow Rate FiO2 10/25/16 01:30 Room Air 10/25/16 01:20 37.2 80 16 142/72 95 Room Air 10/25/16 01:17 68 20 115/69 98 10/24/16 21:25 38.0 84 20 159/77 94 Room Air 10/24/16 19:15 82 20 121/65 95 Room Air 10/24/16 17:20 73 18 122/69 97 Room Air 10/24/16 15:21 36.7 84 18 99/68 94 Room Air Physical Exam General Appearance: WD/WN, no apparent distress ENT: + pertinent finding (Mildly hard of hearing) Respiratory/Chest: lungs clear, normal breath sounds, no respiratory distress, no accessory muscle use Cardiovascular: regular rate, rhythm Abdomen: normal bowel sounds, non tender, soft Extremities: normal inspection, no calf tenderness Neurologic/Psychiatric: alert, normal mood/affect, oriented x 3 Skin: normal color, warm/dry, no rash Laboratory Results Results Past 24 Hours Test 10/25/16 06:05 10/25/16 08:23 10/25/16 10:52 10/25/16 11:56 Range/Units White Blood Count 13.03 4.8-10.8 K/uL Red Blood Count 4.02 4.7-6.1 M/uL Hemoglobin 11.4 14.0-18.0 g/dL Hematocrit 35.0 42-52 % Mean Corpuscular Volume 87.1 80-100 fL Mean Corpuscular Hemoglobin 28.4 25-34 pg Mean Corpuscular Hemoglobin Concent 32.6 32-36 g/dl RDW Standard Deviation 46.2 36.4-46.3 fL RDW Coefficient of Variation 14.4 11.5-14.5 % Platelet Count 187 130-400 K/uL Mean Platelet Volume 10.4 7.4-10.4 fL Sodium Level 134 136-145 mmol/L Potassium Level 3.8 3.5-5.1 mmol/L Chloride Level 100 98-107 mmol/L Carbon Dioxide Level 25 21-32 mmol/L Anion Gap 9.0 3-11 mmol/L Blood Urea Nitrogen 18 7-18 mg/dl Creatinine 1.30 0.60-1.40 mg/dl Est Creatinine Clear Calc Drug Dose 75.7 ml/min Estimated GFR () 63.6 Estimated GFR (Non- 54.9 BUN/Creatinine Ratio 14.2 10-20 Random Glucose 197 70-99 mg/dl Calcium Level 8.2 8.5-10.1 mg/dl Magnesium Level 2.0 1.8-2.4 mg/dl Hepatitis C Antibody Screen NEG NEG Bedside Glucose 176 177 176 70-99 mg/dl Test 10/25/16 17:01 Range/Units Bedside Glucose 237 70-99 mg/dl Assessment and Plan 71 year old male with PMHx CAD, HTN, DM admitted for failure of outpatient UTI with Macrobid, with fevers, back pain and confusion. Sepsis 2/2 UTI / Pyelonephritis - Initially put on Zosyn, then Unasyn. But with history of klebsiella pneumonia and gram negative bacilli on preliminary cultures, antibiotic coverage expanded. Vitals stable. Lactic acid is WNL - Cefepime 2g q12h x 10days - Day 1 - Trace blood and urine culture/sensitivities Ureteral calculus - CT abdomen 10/24: 5mm nonobstructing calculus at the distal R ureter and B/L enhancement which may be consistent with pyelonephritis. Urology consulted - recs appreciated. s/p right ureteral stent placement on 10/25 - Tylenol PRN pain - although patient has not required it thus far DM - ISS with BGS ac/hs CAD - no evidence of ACS - Clopidogrel 75mg daily, metoprolol 25mg BID, rosuvastatin 10mg daily HTN - Metoprolol 25mg BID BPH - Tamsulosin 0.8mg HS Neuropathy - Duloxetine 60mg daily - Gabapentin 400mg BID DVT prophylaxis - SCDs - Lovenox 40mg SC starting tomorrow (24h after procedure) Full code Continued [facility] stay due to: multiple IV medications needed Discharge planning: home Resident Tracking Resident Involvement: Resident Care Provided Care Provided: Adult Hospital Medicine History Resident Physician Supervision Note: I was present with Dr. Pantoja during the history and exam. I discussed the case with the resident and agree with the findings and plan as documented in the note. Any exceptions or clarifications are listed here. Pt reports considerable improvement in presenting symptom of abdominal pain following intervention by urology and is now resting comfortably with vague aching pain of his abdomen. He reports no difficulties with POI, nausea, diarrhea/constipation, fever, CP/SOB, lightheadedness. General Appearance: WD/WN, no apparent distress Respiratory: chest non-tender, lungs clear, normal breath sounds, no respiratory distress Cardiovascular: normal peripheral pulses, regular rate, rhythm, no edema, no murmur Gastrointestinal: normal bowel sounds, non tender, soft, no organomegaly Neurologic/Psychiatric: alert, normal mood/affect, oriented x 3 Skin Characteristics: normal color, warm/dry Assessment/Plan 70 y/o male h/o HTN, DMII, CAD presents with bacteremia w/ UTI and ureteral stone Pyelonephritis w/ R distal ureteral stone - urology consulted, input appreciated - continue cefepime, trend BMP, encourage PO hydration DMII - insulin SS while inpatient HTN - continue metoprolol h/o CAD - continue plavix, metoprolol, crestor Neuropathic pain - continue cymbalta, gabapentin DVT PPX - lovenox FULL CODE
--- NOTE | 2016-10-25 08:32 | Urology Consultation ---
History General Date of Service: October 25, 2016. Chief Complaint: Flank pain, fevers, UTI Primary Care Physician: Gm Villatoro M.D. Pt seen a urologist before?: Yes If yes, why?: Dr. Harris years ago for BPH History of Present Illness 71 yo male admitted for fevers, back pain and suspected UTI treated as an outpatient by his PMD. His H&P and ER notes are reviewed. His history is complicated by the recent of his causing some issues with his care for himself. Son and daughter are local, care discussed with son by phone today at patient request. He notes a mild increase in back pain prior to admission but otherwise describes initial difficulties with his urinary tract starting in Aug 2016. He notes a questionable history of hematuria at that time and was empirically treated for UTI by his PMD. Patient is a relatively poor historian. His symptoms seemed to have continued intermittently, put on the back burner due to his 's issues to present more acutely with fevers, chills, some pain causing ER presentation. CT scan images are personally reviewed - this shows no significant hydro, a R distal ureteral stone, mild bilateral perinephric inflammation and ventral hernias involving bowel. On discussion with ER yesterday, seen that clinically the patient appeared to be unobstructed and clinically nontoxic and stable, plan was to make NPO and observe for now. Patient with low grade temp in ER but this AM blood cultures are positive. Cr wnl, mild leukocytosis remains stable. He has been broadly covered with antibiotics since admission. consultation is requested to assist with the patient's care. Of note in his history is a consultation with Dr. Harris for hematuria and BPH. Patient is unclear of his evaluation and management at the time but did not follow further with urology. HPI - Stones Number: One Size: 5 mm Location: right, ureter, UVJ Pain: right flank (mild) Patient has: + fever, + gross hematuria, No emesis, No hydronephrosis ER Visits: number (1) HPI - Urinary Retention Sx Patient has: + decreasing stream, + hematuria Duration: years Severity: moderate Medications Include: + alpha blockers, No finasteride Imaging Imaging: CT Laboratory Last 24 Hours Test 10/24/16 16:47 10/24/16 17:12 10/24/16 17:51 10/25/16 06:05 White Blood Count 13.22 K/uL 13.03 K/uL Red Blood Count 4.02 M/uL 4.02 M/uL Hemoglobin 11.6 g/dL 11.4 g/dL Hematocrit 34.8 % 35.0 % Mean Corpuscular Volume 86.6 fL 87.1 fL Mean Corpuscular Hemoglobin 28.9 pg 28.4 pg Mean Corpuscular Hemoglobin Concent 33.3 g/dl 32.6 g/dl Platelet Count 165 K/uL 187 K/uL Mean Platelet Volume 10.1 fL 10.4 fL Neutrophils (%) (Auto) 70.5 % Lymphocytes (%) (Auto) 10.3 % Monocytes (%) (Auto) 17.5 % Eosinophils (%) (Auto) 1.2 % Basophils (%) (Auto) 0.2 % Neutrophils # (Auto) 9.32 K/uL Lymphocytes # (Auto) 1.36 K/uL Monocytes # (Auto) 2.32 K/uL Eosinophils # (Auto) 0.16 K/uL Basophils # (Auto) 0.02 K/uL RDW Standard Deviation 45.0 fL 46.2 fL RDW Coefficient of Variation 14.1 % 14.4 % Immature Granulocyte % (Auto) 0.3 % Immature Granulocyte # (Auto) 0.04 K/uL Prothrombin Time 11.2 SECONDS Prothromb Time International Ratio 1.0 Sodium Level 133 mmol/L 134 mmol/L Potassium Level 4.8 mmol/L 3.8 mmol/L Chloride Level 99 mmol/L 100 mmol/L Carbon Dioxide Level 27 mmol/L 25 mmol/L Anion Gap 7.0 mmol/L 9.0 mmol/L Blood Urea Nitrogen 19 mg/dl 18 mg/dl Creatinine 1.30 mg/dl 1.30 mg/dl Est Creatinine Clear Calc Drug Dose 75.7 ml/min 75.7 ml/min Estimated GFR () 63.6 63.6 Estimated GFR (Non- 54.9 54.9 BUN/Creatinine Ratio 14.6 14.2 Random Glucose 158 mg/dl 197 mg/dl Calcium Level 8.4 mg/dl 8.2 mg/dl Total Bilirubin 0.4 mg/dl Aspartate Amino Transf (AST/SGOT) 28 U/L Alanine Aminotransferase (ALT/SGPT) 24 U/L Alkaline Phosphatase 82 U/L Troponin I < 0.015 ng/ml Pro-B-Type Natriuretic Peptide 1308 pg/ml Total Protein 7.1 gm/dl Albumin 2.7 gm/dl Globulin 4.4 gm/dl Albumin/Globulin Ratio 0.6 Chemistry Specimen Hemolysis Urine Color DK YELLOW Urine Appearance CLOUDY Urine pH 5.0 Urine Specific [place] 1.024 Urine Protein 1+ Urine Glucose (UA) NEG Urine Ketones 1+ Urine Occult Blood 1+ Urine Nitrite POS Urine Bilirubin NEG Urine Urobilinogen NEG Urine Leukocyte Esterase MODERATE Urine WBC (Auto) >30 /hpf Urine RBC (Auto) 5-10 /hpf Urine Hyaline Casts (Auto) 0 /lpf Urine Epithelial Cells (Auto) 10-20 /lpf Urine Bacteria (Auto) 4+ Urine Pathogenic Casts 1-5 GRANULAR CASTS /lpf Lactic Acid Level 1.5 mmol/L Magnesium Level 2.0 mg/dl Problem List Medical Problems: (1) Back pain Status: Acute (2) Corneal abrasion Status: Acute (3) Fatigue Status: Acute (4) Knee pain, right Status: Acute (5) Subconjunctival hemorrhage of right eye Status: Acute (6) Ureterolithiasis Status: Acute (7) Urinary tract infection Status: Acute Past History arthritis, BPH, coronary artery disease, deep vein thrombosis, depression, diabetes, GERD, high cholesterol, hypertension, kidney stones Past Surgical History: appendectomy, cholecystectomy, gastric bypass, tonsillectomy, other (cataracts) Family History Diabetes mellitus Heart disease Hypertension Social History Hx Tobacco Use In Past Year?: No Smoking: non-smoker Alcohol: no current use Marital status: Housing status: lives with family Occupation status: retired History of MDRO No Allergies Coded Allergies: Aspirin (Verified Allergy, Intermediate, HIVES, 10/24/16) Medications Home Medications: Home Meds and Scripts Medications Dose Route/Sig Max Daily Dose Days Date Category Dose Instructions Neurontin (Gabapentin) 100 Mg Cap 200 Mg PO DIRECTED PRN 10/24/16 Reported TAKES NEEDED AT NOON Cyanocobalamin 1,000 Mcg/Ml Inj 1,000 Mcg PO MONTHLY 10/24/16 Reported Flomax (Tamsulosin Hcl) 0.4 Mg Cap 0.8 Mg PO HS 10/24/16 Reported Calcium/Vitamin D (Calcium Carbonate-Vitamin D) 1 Cap Cap 1 Cap PO DAILY 10/24/16 Reported Crestor (Rosuvastatin Calcium) 10 Mg Tab 10 Mg PO QPM 10/24/16 Reported Metformin HCl ER (Metformin HCl) 1,000 Mg Tab 1,000 Mg PO BID 10/24/16 Reported Cymbalta (Duloxetine Hcl) 60 Mg Cap 60 Mg PO DAILY 06/01/16 Reported Amoxil (Amoxicillin) 500 Mg Cap 2,000 Mg PO UD 03/20/16 Reported BEFORE DENTIST Gabapentin 100 Mg Cap 400 Mg PO BID 03/20/16 Reported Flintstones Chewable (Pediatric Multiple Vitamin W/) 1 Chw Chw 1 Tab PO BID 06/13/14 Reported Novolin 70/30 (Insulin Human Isoph/Insulin Regular) Susp 26 Units SC QPM 11/18/09 Reported Novolin 70/30 (Insulin Human Isoph/Insulin Regular) Susp 36 Units SC QAM 11/18/09 Reported Toprol-Xl (Metoprolol Succinate) 25 Mg Tabcr 25 Mg PO BID 11/18/09 Reported Plavix (Clopidogrel Bisulfate) 75 Mg Tab 75 Mg PO QAM 11/18/09 Reported Inpatient Medications: Current Inpatient Medications Medications (Trade) Dose Ordered Sig/David Route Start Time Stop Time Status Last Admin Dose Admin Ioversol (Optiray 320) 100 ml UD PRN IV 10/24/16 18:15 10/28/16 18:14 Clopidogrel Bisulfate (plAVix TAB) 75 mg QAM PO 10/25/16 09:00 11/24/16 08:59 Duloxetine HCl (Cymbalta Cap) 60 mg DAILY PO 10/25/16 09:00 11/24/16 08:59 Gabapentin (Neurontin Cap) 400 mg BID PO 10/25/16 09:00 11/24/16 08:59 Metoprolol Succinate (Toprol Xl Tab) 25 mg BID PO 10/25/16 09:00 11/24/16 08:59 Rosuvastatin Calcium (Crestor Tab) 10 mg QPM PO 10/25/16 21:00 11/24/16 20:59 Tamsulosin HCl 0.8 mg 0.8 mg HS PO 10/25/16 21:00 11/24/16 20:59 Ampicillin Sodium/ Sulbactam Sodium/ Sodium Chloride (Unasyn Inj/Nss 100ml) 108 ml @ 200 mls/hr Q6H IV 10/25/16 06:00 11/04/16 05:59 10/25/16 05:55 200 MLS/HR Acetaminophen (Tylenol Tab) 650 mg Q4H PRN PO 10/25/16 00:45 11/24/16 00:44 Al Hydrox/Mg Hydrox/Simethicone (Maalox Max Susp) 15 ml Q4H PRN PO 10/25/16 00:45 11/24/16 00:44 Magnesium Hydroxide (Milk Of Magnesia Susp) 30 ml Q6H PRN PO 10/25/16 00:45 11/24/16 00:44 Polyethylene (Miralax Powder Packet) 17 gm DAILY PRN PO 10/25/16 00:45 11/24/16 00:44 Zolpidem Tartrate (Ambien Tab) 5 mg HSZ PRN PO 10/25/16 00:45 11/24/16 00:44 Ondansetron HCl (Zofran Inj) 4 mg Q6H PRN IV 10/25/16 00:45 11/24/16 00:44 Insulin Aspart SLIDING SCALE G... ACHS SC 10/25/16 07:00 11/24/16 06:59 Sodium Chloride (Nss 1000ml) 1,000 ml @ 80 mls/hr [id number] IV 10/25/16 01:30 10/25/16 13:59 10/25/16 02:51 80 MLS/HR Glucose (Glucose 40% Gel) 15-30 GRAMS 15 GRAMS... UD PRN PO 10/25/16 02:45 11/24/16 02:44 Glucose (Glucose Chew Tab) 4-8 Tablets 4 Tabl... UD PRN PO 10/25/16 02:45 11/24/16 02:44 Dextrose (Dextrose 50% 50ML Syringe) 25-50ML OF 50% DW IV FOR... UD PRN IV 10/25/16 02:45 11/24/16 02:44 Glucagon (Glucagon Inj) 1 mg UD PRN SQ 10/25/16 02:45 11/24/16 02:44 Ampicillin Sodium/ Sulbactam Sodium (Consult) 1 ea UD PRN N/A 10/25/16 03:00 11/24/16 02:59 Review of Systems Review of Systems Constitutional: + chills, + fever Eyes: No double vision, No eye pain, No loss of night vision Neurological: No numbness/tingling, No seizures Endocrine: + too cold, + too hot, No tired/sluggish Gastrointestinal: No nausea, No vomiting Cardiovascular: No angina, No irregular heartbeat Respiratory: No coughing up blood Skin: No boils Musculoskeletal: + back pain Ears / Nose / Throat: No hearing loss, No sinus Psychologic / Mental: + trouble remembering, No nervous Male : + kidney stones, + see HPI Physical Exam Vital Signs: Vital Signs Past 12 Hours Date Time Temp Pulse Resp B/P Pulse Ox O2 Delivery O2 Flow Rate FiO2 10/25/16 01:30 Room Air 10/25/16 01:20 37.2 80 16 142/72 95 Room Air 10/25/16 01:17 68 20 115/69 98 10/24/16 21:25 38.0 84 20 159/77 94 Room Air Physical Exam: General Appearance: no apparent distress, + obese ENT: hearing grossly normal Neck: supple, no adenopathy Respiratory/Chest: no respiratory distress, no accessory muscle use Cardiovascular: no JVD Gastrointestinal: Abdomen: normal abdomen Bladder: normal bladder Renal: normal renal Liver: normal liver Spleen: normal spleen Neurologic/Psychiatric: alert Assessment & Plan Assessment & Plan Treatment Planned: cystoscopy w/ stent A/P 71 yo male with UTI, bacteremia, R distal ureteral stone, BPH. Seen the confluence of his symptoms and especially the presence of blood and urine cultures positive for the same organism, I think it fuentes to proceed with R ureteral stent placement despite his apparent clinical stability. The risk of septic decompensation with manipulation is discussed and risks and benefits are also reviewed with son by phone. Unfortunately the patient was not initially NPO and took solid food at 2 AM, sips of clears at ~7 AM. Will proceed with intervention when deemed appropriate by anesthesia service. Hopefully can be accomplished under sedation. Baseline antibiotic coverage should suffice. Patient vocalizes understanding of the treatment plan.
[2016-10-25] MEDS ORDERED: CONRAY 30% 150ML BOTTLE ONE (09:36)
[2016-10-25] MEDS ORDERED: FENTANYL CITRATE INJ 50 MCG/1 ML 2 ML VIAL ONE (09:43)
[2016-10-25] MEDS ORDERED: ONDANSETRON INJ 2 MG/ML 2 ML VIAL ONE (09:43)
[2016-10-25] MEDS ORDERED: PROPOFOL IV EMULSION 10 MG/ML 20 ML VIAL IV ONE (09:43)
[2016-10-25] MEDS ORDERED: MIDAZOLAM HCL 1 MG/ML 2ML VIAL ONE (09:43)
[2016-10-25] MEDS ORDERED: DEXAMETHASONE SOD INJ 4 MG/ML VIAL ONE (09:43)
[2016-10-25] MEDS ORDERED: LIDOCAINE HCL 2% 2 ML VIAL (20MG/ML) ONE (09:43)
[2016-10-25] MEDS: INSULIN ASPART 100 UNITS/ML 3 ML PEN SC SCH ×4 (09:47→20:48)
[2016-10-25] MEDS ORDERED: KETAMINE HCL INJ 50 MG/ML 10 ML VIAL ONE (10:25)
[2016-10-25] MEDS ORDERED: ATROPINE SULFATE 0.1 MG/ML 5ML SYR IV PRN (10:45)
[2016-10-25] MEDS ORDERED: PROMETHAZINE HCL INJ 12.5 MG in SODIUM CHLORIDE 0.9% 50ML 50 ML IV PRN (10:45)
[2016-10-25] MEDS ORDERED: LABETALOL HCL IV 5 MG/ML 20ML IV PRN (10:45)
[2016-10-25] MEDS ORDERED: EpHEDrine SULFATE INJ 50 MG/ML AMP IV PRN (10:45)
[2016-10-25] MEDS ORDERED: NALOXONE HCL 0.4 MG/1 ML VIAL/CARP IV PRN (10:45)
[2016-10-25] MEDS ORDERED: FENTANYL CITRATE INJ 50 MCG/1 ML 2 ML VIAL IV PRN (10:45)
--- NOTE | 2016-10-25 10:53 | [facility] Post Operative Brief Note ---
Immediate Operative Summary Operative Date October 25, 2016. Pre-Operative Diagnosis Urosepsis, Right Ureteral Stone Post-Operative Diagnosis Same as preop Procedure(s) Performed Cystoscopy, Right Ureteral stent placement, right retrograde pyelography. Surgeon Timbo Yañez MD Data Entry Email Processor Surgeon(s) none Estimated Blood Loss 0mL Findings Good stent position after completion of case Specimens none, Per Surgeon Drains 6 fr multilength R ureteral stent Anesthesia MAC Complication(s) None Disposition Recovery Room / PACU
--- NOTE | 2016-10-25 11:01 | DIAGNOSTIC IMAGING REPORT ---
INTRAOPERATIVE RADIOGRAPHS CLINICAL HISTORY: Nephrolithiasis. Right ureteral stent placement. Fluoroscopy time: 32 seconds. FINDINGS: 5 spot fluoroscopic views of the right abdomen from a ureteral stent placement procedure are presented. Correlation is made with abdominal CT dated 10/24/2016. The images show cannulation of the right ureter. A lithotripsy device is noted. Successive images show deployment of a right ureteral stent. The proximal end of a stent projects over the right renal pelvis. IMPRESSION: Intraoperative images from a right ureteral stent placement procedure. See operative report for detailed findings. Electronically signed by: Clarke Montez M.D. 10/25/2016 10:59 AM Dictated Date/Time: 10/25/2016 10:57 AM
--- NOTE | 2016-10-25 11:08 | OPERATIVE REPORT ---
DATE OF OPERATION: 10/25/2016 PREOPERATIVE DIAGNOSIS: Urosepsis with right distal ureteral stone. POSTOPERATIVE DIAGNOSIS: Same. PROCEDURE: Cystoscopy, right retrograde pyelography, right ureteral stent placement. SURGEON: Dr. Timbo Yañez. HEMATOLOGIST: None. ANESTHESIA: Monitored anesthesia care with sedation. COMPLICATIONS: None. SPECIMENS SENT TO PATHOLOGY: None. DRAINS LEFT IN PLACE: Include a 6-Mohawk multilength ureteral stent on the right hand side. FINDINGS: Good stent position on fluoroscopy. BRIEF HISTORY: Mr. Manjarrez is a pleasant 71-year-old male with a history of refractory urinary tract infection found to have a right ureteral stone on CT scan imaging. Seeing his positive blood cultures and low grade temperature he is being brought in for decompression with stent. Please see urology consultation for further details. He has been covered with broad spectrum antibiotics as an inpatient. SCDs used for DVT prophylaxis. Informed consent reviewed with the patient preoperatively today. OPERATION AND FINDINGS: PROCEDURE: The patient was properly identified and brought to the operative suite. After identification and appropriate consent on the chart, monitored anesthesia care with sedation was initiated and the patient was prepped and draped in standard fashion for this procedure. machine tender-out procedure was followed. A 22-Mohawk rigid cystoscope was passed into the bladder under direct visualization and a somewhat elevated and friable bladder neck was appreciated with mild lateral lobe hypertrophy. The patient's bladder was surveyed demonstrating no intravesical lesions or papillary masses. Mild trabeculation was present. Right-sided ureteral orifice was cannulated using an open-ended catheter and gentle retrograde pyelography was performed. Stone was not clearly visible on papier mache' molder imaging. This demonstrated minimal ureteral fullness with opacification of the distal and proximal ureter. Injection of contrast under any significant pressure was avoided. Sensor tip wire was advanced up to the level of the right renal pelvis followed by a 6-[place]awk multilength ureteral catheter. Redundant loops were present within the kidney and a double loop present within the bladder. Hydronephrotic drip was noted. Bladder was drained and cystoscope was removed, anesthesia was reversed and the patient was transferred to recovery room in stable condition. Mild urethral bleeding was noted after completion of the case. FOLLOW-UP CARE: The patient will be readmitted to the floor for standard postoperative management. Follow up urine cultures and plan for approximately 2 weeks of antibiotic therapy. Care is discussed with patient and his family both pre- and postoperatively. We will plan on definitive stone management once his infectious difficulties have resolved. I attest to the content of the Intraoperative Record and any orders documented therein. Any exceptio ns are noted below.
--- NOTE | 2016-10-25 11:31 | Anesthesiology Progress Note ---
Anesthesia Post Op Note Date & Time October 25, 2016 at 11:30 Vital Signs Pain Intensity: 0 Vital Signs Past 12 Hours Date Time Temp Pulse Resp B/P Pulse Ox O2 Delivery O2 Flow Rate FiO2 10/25/16 11:10 36.6 81 16 122/74 95 Nasal Cannula 2 10/25/16 11:00 85 16 127/68 95 Nasal Cannula 2 10/25/16 10:50 84 16 121/66 97 Mask 10 10/25/16 10:41 36.8 91 16 114/72 96 Mask 10 10/25/16 08:19 37.2 89 16 166/78 90 Room Air 10/25/16 08:00 95 Room Air 10/25/16 01:30 Room Air 10/25/16 01:20 37.2 80 16 142/72 95 Room Air 10/25/16 01:17 68 20 115/69 98 Notes Mental Status: alert / awake / arousable, participated in evaluation Pt Amnestic to Procedure: Yes Nausea / Vomiting: adequately controlled Pain: adequately controlled Airway Patency, RR, SpO2: stable & adequate BP & HR: stable & adequate Hydration State: stable & adequate Anesthetic Complications: no major complications apparent
[2016-10-25] MEDS: GABAPENTIN 400 MG CAP PO SCH ×2 (14:06→20:37)
[2016-10-25] MEDS: METOPROLOL SUCC 25MG EXT REL TAB PO SCH ×2 (14:07→20:40)
[2016-10-25] MEDS: CLOPIDOGREL BISULFATE 75 MG TAB PO SCH (14:07)
[2016-10-25] MEDS: DULOXETINE HCL 60 MG CAP PO SCH (14:07)
[2016-10-25] MEDS: ROSUVASTATIN CALCIUM 10 MG TAB PO SCH (20:37)
[2016-10-25] MEDS: TAMSULOSIN HCL 0.4 MG CAP PO SCH (20:37)
[2016-10-25] MEDS: CEFEPIME IV 2,000 MG in DEXTROSE 5% 100ML 100 ML IV SCH (21:56)
[2016-10-26 03:53] VITALS: BP 134/69; PULSE 66; TEMP 36.9; O2SAT 92
[2016-10-26 06:10] LABS: BASO % 0.2 %; BASO ABS # 0.02 K/uL (0-0.2); COMPLETE YES; EOS % 1.4 %; HEMATOCRIT 33.4 % (42-52); IG% 0.7 %; LYMPH % 12.6 %; LYMPH ABS # 1.59 K/uL (1.2-3.4); MEAN CELL VOLUME 85.6 fL (80-100); MEAN CORPUSCULAR HEMOGLOBIN 28.5 pg (25-34); MEAN CORPUSCULAR HGB CONC 33.2 g/dl (32-36); MEAN PLATELET VOLUME 9.6 fL (7.4-10.4); NEUT % 73.1 %; PLATELET COUNT 192 K/uL (130-400); WHITE BLOOD COUNT 12.64 K/uL (4.8-10.8)
[2016-10-26 06:57] LABS: BUN/CREATININE RATIO 13.1 (10-20); CALCIUM 8.3 mg/dl (8.5-10.1); POTASSIUM 4.1 mmol/L (3.5-5.1)
[2016-10-26 07:06] VITALS: BP 149/78; PULSE 68; TEMP 36.6; O2SAT 93
--- NOTE | 2016-10-26 07:58 | Family Medicine Progress Note ---
Progress Note Date of Service October 26, 2016. Subjective Pt evaluation today including: conversation w/ patient, physical exam, chart review, lab review Patient well overnight, denies acute issues. Does state that he has ongoing UTI symptoms, but denies fevers and back pain. He did have one episode of right groin pain that self-resolved after 2 min without analgesia. Tolerating diet. Poor sleep overnight because of urinary frequency and desire for CPAP with nasal pillows specifically, but declined facial mask, and saturated well on NC. Constitutional: No chills, No fever, No sweats ENT: No nasal symptoms, No sore throat Respiratory: No cough, No shortness of breath Cardiovascular: No PND, No chest pain, No edema, No orthopnea, No palpitations Abdomen: No GI bleeding, No diarrhea, No nausea, No pain, No vomiting Musculoskeletal: No joint pain, No muscle pain, No swelling Male : + dysuria, + nocturia more than once/night, + urinary frequency, No hematuria, No incontinence Objective Vital Signs Date Time Temp Pulse Resp B/P Pulse Ox O2 Delivery O2 Flow Rate FiO2 10/26/16 07:06 36.6 68 18 149/78 93 Room Air 10/26/16 03:53 36.9 66 16 134/69 92 Room Air 10/25/16 22:53 37.2 63 16 146/73 97 Nasal Cannula 2.0 10/25/16 20:20 Room Air 10/25/16 19:45 36.9 76 18 152/78 93 Room Air 10/25/16 16:08 Room Air 10/25/16 14:57 37.0 75 18 156/68 92 Room Air 10/25/16 14:30 36.7 77 16 156/70 92 Room Air 10/25/16 12:45 149/72 10/25/16 12:05 70 16 132/67 96 2.0 10/25/16 11:35 76 16 146/83 96 2.0 10/25/16 11:10 36.6 81 16 122/74 95 Nasal Cannula 2 10/25/16 11:00 85 16 127/68 95 Nasal Cannula 2 10/25/16 10:50 84 16 121/66 97 Mask 10 10/25/16 10:41 36.8 91 16 114/72 96 Mask 10 10/25/16 08:19 37.2 89 16 166/78 90 Room Air 10/25/16 08:00 95 Room Air Physical Exam General Appearance: WD/WN, no apparent distress ENT: + pertinent finding (Mild hearing impairment) Neck: supple, no adenopathy Respiratory/Chest: lungs clear, normal breath sounds, no respiratory distress, no accessory muscle use Cardiovascular: regular rate, rhythm, no edema, no murmur Abdomen: normal bowel sounds, non tender (mild pressure sensation on palpation over suprapubic region), soft, + pertinent finding (No CVA tenderness bilaterally) Extremities: normal inspection, no pedal edema, no calf tenderness Neurologic/Psychiatric: alert, normal mood/affect, oriented x 3 Skin: normal color, warm/dry, no rash Laboratory Results Results Past 24 Hours Test 10/25/16 11:56 10/25/16 17:01 10/25/16 20:33 10/26/16 05:40 Range/Units Bedside Glucose 176 237 267 70-99 mg/dl White Blood Count 12.64 4.8-10.8 K/uL Red Blood Count 3.90 4.7-6.1 M/uL Hemoglobin 11.1 14.0-18.0 g/dL Hematocrit 33.4 42-52 % Mean Corpuscular Volume 85.6 80-100 fL Mean Corpuscular Hemoglobin 28.5 25-34 pg Mean Corpuscular Hemoglobin Concent 33.2 32-36 g/dl Platelet Count 192 130-400 K/uL Mean Platelet Volume 9.6 7.4-10.4 fL Neutrophils (%) (Auto) 73.1 % Lymphocytes (%) (Auto) 12.6 % Monocytes (%) (Auto) 12.0 % Eosinophils (%) (Auto) 1.4 % Basophils (%) (Auto) 0.2 % Neutrophils # (Auto) 9.24 1.4-6.5 K/uL Lymphocytes # (Auto) 1.59 1.2-3.4 K/uL Monocytes # (Auto) 1.52 0.11-0.59 K/uL Eosinophils # (Auto) 0.18 0-0.5 K/uL Basophils # (Auto) 0.02 0-0.2 K/uL RDW Standard Deviation 45.0 36.4-46.3 fL RDW Coefficient of Variation 14.4 11.5-14.5 % Immature Granulocyte % (Auto) 0.7 % Immature Granulocyte # (Auto) 0.09 0.00-0.02 K/uL Sodium Level 136 136-145 mmol/L Potassium Level 4.1 3.5-5.1 mmol/L Chloride Level 102 98-107 mmol/L Carbon Dioxide Level 24 21-32 mmol/L Anion Gap 10.0 3-11 mmol/L Blood Urea Nitrogen 13 7-18 mg/dl Creatinine 1.00 0.60-1.40 mg/dl Est Creatinine Clear Calc Drug Dose 98.4 ml/min Estimated GFR () 87.4 Estimated GFR (Non- 75.4 BUN/Creatinine Ratio 13.1 10-20 Random Glucose 198 70-99 mg/dl Calcium Level 8.3 8.5-10.1 mg/dl Test 10/26/16 07:55 Range/Units Bedside Glucose 209 70-99 mg/dl Assessment and Plan 71 year old male with PMHx CAD, HTN, DM admitted for failure of outpatient UTI with Macrobid, with fevers, back pain and confusion. Sepsis 2/2 UTI / Pyelonephritis - Initially put on Zosyn, then Unasyn, but with history of klebsiella and gram negative bacilli on preliminary cultures, antibiotic coverage expanded. Vitals stable. Lactic acid is WNL. Cultures grew klebsiella pneumoniae in urine - resistant only to Macrobid. - Cefepime 2g q12h transitioned to Ciprofloxacin 500mg BID - Day 07/11 - Trace blood culture Ureteral calculus - CT abdomen 10/24: 5mm nonobstructing calculus at the distal R ureter and B/L enhancement which may be consistent with pyelonephritis. Urology consulted - recs appreciated. s/p right ureteral stent placement on 10/25 - Tylenol PRN pain - Follow up with urology as outpatient DM - ISS with BGS ac/hs CAD - no evidence of ACS - Clopidogrel 75mg daily, metoprolol 25mg BID, rosuvastatin 10mg daily HTN - Metoprolol 25mg BID BPH - Tamsulosin 0.8mg HS Neuropathy - Duloxetine 60mg daily - Gabapentin 400mg BID DVT prophylaxis - SCDs - Lovenox 40mg SC starting tomorrow (24h after procedure) Full code Continued [facility] stay due to: voiding difficulties Discharge planning: home Resident Tracking Resident Involvement: Resident Care Provided Care Provided: Adult Hospital Medicine History Resident Physician Supervision Note: I was present with Dr. Pantoja during the history and exam. I discussed the case with the resident and agree with the findings and plan as documented in the note. Any exceptions or clarifications are listed here. Pt reports resolution of suprapubic and right flank pain except with certain movements provoking aching right groin pain. Reports no fever, n/v/d/c, urinary frequency changes. Lost IV access so will transition to PO abx and trial that overnight. General Appearance: WD/WN, no apparent distress Respiratory: chest non-tender, lungs clear, normal breath sounds, no respiratory distress Cardiovascular: normal peripheral pulses, regular rate, rhythm, no edema, no murmur Gastrointestinal: normal bowel sounds, non tender, soft, no organomegaly Assessment/Plan 70 y/o male h/o HTN, DMII, CAD presents with bacteremia w/ UTI and ureteral stone Pyelonephritis w/ R distal ureteral stone - urology consulted, input appreciated - trend BMP, encourage PO hydration, transition to PO cipro DMII - insulin SS while inpatient HTN - continue metoprolol h/o CAD - continue plavix, metoprolol, crestor Neuropathic pain - continue cymbalta, gabapentin DVT PPX - lovenox FULL CODE
[2016-10-26] MEDS: CLOPIDOGREL BISULFATE 75 MG TAB PO SCH (08:57)
[2016-10-26] MEDS: DULOXETINE HCL 60 MG CAP PO SCH (08:57)
[2016-10-26] MEDS: GABAPENTIN 400 MG CAP PO SCH ×2 (08:57→20:39)
[2016-10-26] MEDS: METOPROLOL SUCC 25MG EXT REL TAB PO SCH ×2 (08:57→20:39)
[2016-10-26] MEDS: ENOXAPARIN 40 MG/0.4 ML SYR SQ SCH (08:59)
[2016-10-26] MEDS: INSULIN ASPART 100 UNITS/ML 3 ML PEN SC SCH ×4 (09:00→20:52)
[2016-10-26] MEDS: CEFEPIME IV 2,000 MG in DEXTROSE 5% 100ML 100 ML IV SCH (09:00)
--- NOTE | 2016-10-26 09:34 | DIAGNOSTIC IMAGING REPORT ---
KUB CLINICAL HISTORY: Stone disease. COMPARISON STUDY: CT of the abdomen and pelvis October 24, 2016 and retrograde exam October 25, 2016. FINDINGS: A right ureteral stent is in place. There is a possible 5 mm calcific density adjacent to the distal aspect of the right ureteral stent. The bowel gas pattern is normal. There are bowel anastomoses. IMPRESSION: Right ureteral stent in place. Possible visualization of the 5 mm distal right ureteral calculus. Electronically signed by: Vinicio Horvath M.D. 10/26/2016 9:33 AM Dictated Date/Time: 10/26/2016 9:29 AM
[2016-10-26] MEDS ORDERED: CIPROFLOXACIN 500 MG TAB PO ONE (09:53)
[2016-10-26] MEDS: ACETAMINOPHEN 325 MG TAB PO PRN ×2 (12:06→21:45)
--- NOTE | 2016-10-26 12:35 | Progress Note ---
Subjective Date of Service: October 26, 2016. Subjective Pt evaluation today including: conversation w/ patient, conversation w/ family , physical exam, chart review, lab review, review of inpatient medication list Pain: Improved, notes some urinary frequency PO Intake: Luis reg diet Voiding: voiding difficulty (irritative symptoms) 71 yo male POD#1 s/p R ureteral stone for urosepsis, noted to be growing pansensitive Klebsiella save nitrofurantoin. Overall he feels well, family in room, ambulatory and luis reg diet. He complaints of typical stent irritation. Intraop findings reviewed with patient and family. KUB from this AM reviewed - ? stone visibility, quite radiolucent, stent in place. No stones passed. He has been afebrile since yesterday early. Problem List Medical Problems: (1) Back pain Status: Acute (2) Corneal abrasion Status: Acute (3) Fatigue Status: Acute (4) Knee pain, right Status: Acute (5) Subconjunctival hemorrhage of right eye Status: Acute (6) Ureterolithiasis Status: Acute (7) Urinary tract infection Status: Acute Review of Systems Constitutional: No chills, No fever Eyes: No worsening of vision ENT: No hearing loss Respiratory: No shortness of breath, No sputum, No wheezing Cardiac: No chest pain Abdomen: No nausea, No vomiting Male : + see HPI, + urinary frequency Neurologic: No memory loss, No paralysis Psychiatric: No depression symptoms Endo: No excessive thirst, No fatigue Skin: No color change, No new/changing skin lesions Objective Vital Signs Date Time Temp Pulse Resp B/P Pulse Ox O2 Delivery O2 Flow Rate FiO2 10/26/16 09:00 Room Air 10/26/16 07:06 36.6 68 18 149/78 93 Room Air 10/26/16 03:53 36.9 66 16 134/69 92 Room Air 10/25/16 22:53 37.2 63 16 146/73 97 Nasal Cannula 2.0 10/25/16 20:20 Room Air 10/25/16 19:45 36.9 76 18 152/78 93 Room Air 10/25/16 16:08 Room Air 10/25/16 14:57 37.0 75 18 156/68 92 Room Air 10/25/16 14:30 36.7 77 16 156/70 92 Room Air 10/25/16 12:45 149/72 Physical Exam General Appearance: no apparent distress, + obese ENT: normal ENT inspection, hearing grossly normal Neck: supple, no adenopathy Respiratory/Chest: no respiratory distress, no accessory muscle use Cardiovascular: no JVD Abdomen: non tender, soft Neurologic/Psychiatric: alert, oriented x 3 Skin: normal color Laboratory Results Last 24 Hours Test 10/25/16 17:01 10/25/16 20:33 10/26/16 05:40 10/26/16 07:55 Bedside Glucose 237 mg/dl 267 mg/dl 209 mg/dl White Blood Count 12.64 K/uL Red Blood Count 3.90 M/uL Hemoglobin 11.1 g/dL Hematocrit 33.4 % Mean Corpuscular Volume 85.6 fL Mean Corpuscular Hemoglobin 28.5 pg Mean Corpuscular Hemoglobin Concent 33.2 g/dl Platelet Count 192 K/uL Mean Platelet Volume 9.6 fL Neutrophils (%) (Auto) 73.1 % Lymphocytes (%) (Auto) 12.6 % Monocytes (%) (Auto) 12.0 % Eosinophils (%) (Auto) 1.4 % Basophils (%) (Auto) 0.2 % Neutrophils # (Auto) 9.24 K/uL Lymphocytes # (Auto) 1.59 K/uL Monocytes # (Auto) 1.52 K/uL Eosinophils # (Auto) 0.18 K/uL Basophils # (Auto) 0.02 K/uL RDW Standard Deviation 45.0 fL RDW Coefficient of Variation 14.4 % Immature Granulocyte % (Auto) 0.7 % Immature Granulocyte # (Auto) 0.09 K/uL Sodium Level 136 mmol/L Potassium Level 4.1 mmol/L Chloride Level 102 mmol/L Carbon Dioxide Level 24 mmol/L Anion Gap 10.0 mmol/L Blood Urea Nitrogen 13 mg/dl Creatinine 1.00 mg/dl Est Creatinine Clear Calc Drug Dose 98.4 ml/min Estimated GFR () 87.4 Estimated GFR (Non- 75.4 BUN/Creatinine Ratio 13.1 Random Glucose 198 mg/dl Calcium Level 8.3 mg/dl Test 10/26/16 12:14 Bedside Glucose 235 mg/dl Assessment and Plan A/P 71 yo male POD#1 s/p R ureteral stent for stone and bacteremia. Transitioning to oral Cipro Will arrange for outpatient f/u and ureteroscopic management of his stone in 2- 4 weeks Plan reviewed with patient and family Stable for DC home from perspective Thank you for allowing us to participate in this patient's care. Please recall our service with any questions or concerns. Continued [facility] stay due to: multiple IV medications needed Discharge planning: home
[2016-10-26 14:52] VITALS: BP 157/76; PULSE 56; TEMP 36.8; O2SAT 93
[2016-10-26] MEDS: POLYETHYLENE (MIRALAX) 17 GM PACK PO PRN (18:27)
[2016-10-26 20:34] VITALS: BP 166/84; PULSE 61; O2SAT 93
[2016-10-26] MEDS: ROSUVASTATIN CALCIUM 10 MG TAB PO SCH (20:36)
[2016-10-26] MEDS: CIPROFLOXACIN 500 MG TAB PO SCH (20:37)
[2016-10-26] MEDS: TAMSULOSIN HCL 0.4 MG CAP PO SCH (20:38)
[2016-10-26 22:53] VITALS: BP 144/72; PULSE 64; TEMP 37; O2SAT 91
[2016-10-27 06:16] LABS: HEMATOCRIT 36.3 % (42-52); MEAN CELL VOLUME 85.6 fL (80-100); MEAN CORPUSCULAR HEMOGLOBIN 28.1 pg (25-34); MEAN CORPUSCULAR HGB CONC 32.8 g/dl (32-36); MEAN PLATELET VOLUME 9.4 fL (7.4-10.4); PLATELET COUNT 209 K/uL (130-400); RED BLOOD COUNT 4.24 M/uL (4.7-6.1); WHITE BLOOD COUNT 11.98 K/uL (4.8-10.8)
[2016-10-27 06:46] LABS: BUN/CREATININE RATIO 12.9 (10-20); CALCIUM 8.6 mg/dl (8.5-10.1); CREATININE 1.2 mg/dl (0.60-1.40); POTASSIUM 4.4 mmol/L (3.5-5.1)
[2016-10-27 07:39] VITALS: BP 121/72; PULSE 79; TEMP 37; O2SAT 93
[2016-10-27] MEDS: POLYETHYLENE (MIRALAX) 17 GM PACK PO PRN (07:42)
[2016-10-27] MEDS: CLOPIDOGREL BISULFATE 75 MG TAB PO SCH (09:00)
[2016-10-27] MEDS: DULOXETINE HCL 60 MG CAP PO SCH (09:00)
[2016-10-27] MEDS: CIPROFLOXACIN 500 MG TAB PO SCH (09:00)
[2016-10-27] MEDS: GABAPENTIN 400 MG CAP PO SCH (09:00)
[2016-10-27] MEDS: ENOXAPARIN 40 MG/0.4 ML SYR SQ SCH (09:00)
[2016-10-27] MEDS: INSULIN ASPART 100 UNITS/ML 3 ML PEN SC SCH ×2 (09:00→13:10)
[2016-10-27] MEDS: METOPROLOL SUCC 25MG EXT REL TAB PO SCH (09:00)
[2016-10-27] MEDS: ACETAMINOPHEN 325 MG TAB PO PRN (13:11)
[2016-10-27] MEDS ORDERED: CPR500 PO (13:56)
--- NOTE | 2016-10-27 13:58 | Discharge Instructions ---
Discharge Instructions Date of Service October 27, 2016. Admission Reason for Admission: Sepsis, Uti Discharge Discharge Diagnosis / Problem: Sepsis, UTI, Bacteremia, s/p stents for stone Discharge Goals Goal(s): Decrease discomfort, Improve disease control Activity Recommendations Activity Limitations: resume your previous activity . Instructions / Follow-Up Instructions / Follow-Up With Dr. Yañez in 2-4 weeks Current Hospital Diet Patient's current hospital diet: AHA Diet (Heart Healthy), Diabetes Type 2 Diet Discharge Diet Recommended Diet: AHA Diet (Heart Healthy), Diabetes Type 2 Diet Procedures Procedures Performed: Cystoscopy, Right Ureteral stent placement, right retrograde pyelography. Pending Studies Studies pending at discharge: no Laboratory Results Hemoglobin A1c Test 09/25/16 09:27 Range/Units Estimated Average Glucose 157 mg/dl Hemoglobin A1c 7.1 H 4.5-5.6 % Medical Emergencies . Who to Call and When: Medical Emergencies: If at any time you feel your situation is an emergency, please call 911 immediately. . Non-Emergent Contact Non-Emergency issues call your: Urologist . . "Provider Documentation" section prepared by Ileana Toledo. . VTE Core Measure Inpt VTE Proph given/why not?: SCD's
[2016-10-27] MEDS ORDERED: HYDR-5688 PO (14:00)
[2016-10-27 14:07] VITALS: BP 121/72; PULSE 79; TEMP 37; O2SAT 93
[2016-10-27] MEDS ORDERED: CIPROFLOXACIN 500MG HOME PACK PO ONE (14:30)
--- NOTE | 2016-10-27 15:16 | Discharge Summary ---
Discharge Summary Date of Service October 27, 2016. (Michael Garcia MD) Discharge Summary Admission Date: October 25, 2016 at 00:37 Discharge Date: October 27, 2016 Discharge Disposition: Home Principal Diagnosis: Pyelonephritis and Kidney Stone Procedures: Right Ureter Stent Placement Consultations: Urology (Michael Garcia MD) Medication Reconciliation New Medications: Hydrocodone/Acetaminophen 5MG/325MG ([place] 5MG/325MG) Tab 1 TAB PO TID PRN for Pain for 10 Days, #20 TAB PRN PAIN Ciprofloxacin (Ciprofloxacin HCl) 500 Mg Tab 500 MG PO BID for 12 Days, #24 TAB Continued Medications: Amoxicillin (Amoxil) 500 Mg Cap 2000 MG PO UD, #21 CAP BEFORE DENTIST Calcium Carbonate-Vitamin D (Calcium/Vitamin D) 1 Cap Cap 1 CAP PO DAILY Clopidogrel (Plavix) 75 Mg Tab 75 MG PO QAM, 0 Refills Cyanocobalamin (Cyanocobalamin) 1,000 Mcg/Ml Inj 1000 MCG PO MONTHLY Duloxetine Hcl (Cymbalta) 60 Mg Cap 60 MG PO DAILY, CAP Gabapentin (Gabapentin) 100 Mg Cap 400 MG PO BID, #900 Gabapentin (Neurontin) 100 Mg Cap 200 MG PO DIRECTED PRN for Pain, CAP TAKES NEEDED AT NOON Insulin Isophan/Regular (Novolin 70/30) Susp 36 UNITS SC QAM, 0 Refills Insulin Isophan/Regular (Novolin 70/30) Susp 26 UNITS SC QPM, 0 Refills Metformin HCl (Metformin HCl ER) 1,000 Mg Tab 1000 MG PO BID Metoprolol Succ (Toprol Xl) (Toprol-Xl) 25 Mg Tabcr 25 MG PO BID, #30 0 Refills Pediatric Multiple Vitamin W/ (Flintstones Chewable) 1 Chw Chw 1 TAB PO BID, TAB Rosuvastatin Calcium (Crestor) 10 Mg Tab 10 MG PO QPM, TAB Tamsulosin Hcl (Flomax) 0.4 Mg Cap 0.8 MG PO HS, CAP Discharge Exam 71 year old male with no acute distress overnight. He is doing well and is ready for discharge today and will be following up with urology and will go home on antibiotics. Review of Systems: Constitutional: No chills, No fever, No sweats Respiratory: No cough, No sputum, No wheezing Cardiovascular: No chest pain, No orthopnea, No palpitations Abdomen: No nausea, No pain, No vomiting Genitourinary - Male: + dysuria, No urinary frequency, No urinary urgency Physical Exam: General Appearance: WD/WN, no apparent distress, + obese Respiratory/Chest: chest non-tender, lungs clear, normal breath sounds, no respiratory distress Cardiovascular: regular rate, rhythm, no edema, no gallop, no JVD, normal peripheral pulses Abdomen / GI: normal bowel sounds, non tender, soft Extremities: normal inspection, no calf tenderness, no pedal edema (Michael Garcia MD) Review of Systems: Constitutional: No fever Respiratory: No shortness of breath Cardiovascular: No chest pain Abdomen: No nausea, No pain, No vomiting Genitourinary - Male: + problem reported (slight blood in urine) Physical Exam: General Appearance: no apparent distress Respiratory/Chest: lungs clear, no respiratory distress Cardiovascular: regular rate, rhythm Abdomen / GI: normal bowel sounds, non tender, soft Neurologic/Psychiatric: alert, oriented x 3 Skin: warm/dry (Ileana Toledo M.D.) Hospital Course 71 year old male with PMHx CAD, HTN, DM admitted for failure of outpatient UTI with Macrobid, with fevers, back pain and confusion. Sepsis 2/ UTI / Pyelonephritis - Cultures grew klebsiella pneumoniae in urine - resistant only to Macrobid. - Ciprofloxacin 500mg BID - Day 08/08 Ureteral calculus - CT abdomen 10/24: 5mm nonobstructing calculus at the distal R ureter and B/L enhancement s/p right ureteral stent placement on 10/25 - Tylenol PRN pain - Follow up with urology as outpatient CAD - Clopidogrel 75mg daily, metoprolol 25mg BID, rosuvastatin 10mg daily HTN - Metoprolol 25mg BID BPH - Tamsulosin 0.8mg HS Neuropathy - Duloxetine 60mg daily - Gabapentin 400mg BID Total Time Spent: Less than 30 minutes This includes examination of the patient, discharge planning, medication reconciliation, and communication with other providers. (Michael Garcia MD) I have reviewed the medical record and performed a history and physical examination of this patient today. I have discussed the case with Dr. Garcia. The above note reflects my findings, conclusions, and recommendations. Sepsis with Klebsiella bacteremia sec to UTI with ureteral stone s/p stent placement - continue antibiotics. outpatient urology follow up. Total Time Spent: Greater than 30 minutes (35) (Ileana Toledo M.D.) Discharge Instructions Please refer to the electronic Patient Visit Report (Discharge Instructions) for additional information. (Michael Garcia MD) Additional Copies To Timbo Yañez MD, Urology; Pro,Gm Akbar M.D.
[2016-10-30] MEDS ORDERED: TRAM-10 PO (09:38)
[2016-10-30] MEDS ORDERED: LOSA25TA18 PO (09:38)
[2016-11-06] MEDS ORDERED: HYDR-5688 PO (12:27)
[2016-11-06] MEDS ORDERED: PHEN-775 PO (12:27)
[2016-11-06] MEDS ORDERED: POTATAB2 PO (14:25)
== END 2016-10-27 15:00 | disposition home or self-care (01) | DRG 872 ==
LOC: ENRESERVTM → ENRESERVDT → C.EDB 15:08 → C.MSN 10-25 00:37
PROVIDERS: ADMIT Internal Medicine; ATTEND Family Medicine
PROC: BT16ZZZ Fluoroscopy of Right Ureter (ICD-10-PCS; principal; 2016-10-25 09:30)
PROC: 0T764DZ Dilation of Right Ureter with Intraluminal Device, Percutaneous Endoscopic Approach (ICD-10-PCS; principal; 2016-10-25 09:30)
DX: A41.59 Other Gram-negative sepsis (principal); N39.0 Urinary tract infection, site not specified; N12 Tubulo-interstitial nephritis, not specified as acute or chronic; N20.1 Calculus of ureter; E11.40 Type 2 diabetes mellitus with diabetic neuropathy, unspecified; Z83.3 Family history of diabetes mellitus; E78.5 Hyperlipidemia, unspecified; E66.9 Obesity, unspecified; Z98.0 Intestinal bypass and anastomosis status; I25.10 Atherosclerotic heart disease of native coronary artery without angina pectoris; N40.1 Benign prostatic hyperplasia with lower urinary tract symptoms; X58.XXXA Exposure to other specified factors, initial encounter; Y92.239 Unspecified place in hospital as the place of occurrence of the external cause; Z68.37 Body mass index [BMI] 37.0-37.9, adult

== ENCOUNTER → 2016-10-29 | Outpatient (CLI) | payer OTHER, MEDICARE ==
[~2016-10-29] MED LIST changes: +CALCCAP17 PO; -CLTP PO; +CPR500 PO; +CRS/10 PO; -CRS10 PO; -CYAN3INJ IM; +CYNI1000 PO; -FLM4 PO; +GABA-112 PO; -GLC500 PO; +HYDR-5688 PO; +LOSA25TA18 PO; +METF-841 PO; +PHEN-775 PO; +POTATAB2 PO; +TAMS0.4C38 PO; +TRAM-10 PO
== END | disposition home or self-care (01) ==
LOC: C.LABSPEC 16:58
PROVIDERS: ATTEND Nurse Practitioner Adult Health
DX: N20.1 Calculus of ureter (principal)

== ENCOUNTER → 2016-12-24 | Outpatient (CLI) | payer OTHER, MEDICARE ==
[~2016-12-24] MED LIST changes: -PHEN-775 PO; -TRAM-10 PO
[2016-12-24 09:35] LABS: MEAN CELL VOLUME 90.1 fL (80-100); MEAN CORPUSCULAR HEMOGLOBIN 28.4 pg (25-34); MEAN CORPUSCULAR HGB CONC 31.5 g/dl (32-36); PLATELET COUNT 171 K/uL (130-400); RED BLOOD COUNT 4.55 M/uL (4.7-6.1); WHITE BLOOD COUNT 6.81 K/uL (4.8-10.8)
[2016-12-24 09:53] LABS: BLOOD UREA NITROGEN 22 mg/dl (7-18); BUN/CREATININE RATIO 20.4 (10-20); CALCIUM 9.3 mg/dl (8.5-10.1); CARBON DIOXIDE 26 mmol/L (21-32); CHLORIDE 105 mmol/L (98-107); CHOLESTEROL 127 mg/dl (0-200); GLUCOSE 94 mg/dl (70-99); POTASSIUM 4.6 mmol/L (3.5-5.1); SODIUM 138 mmol/L (136-145); TRIGLYCERIDES 149 mg/dl (0-150); VERY LOW DENSITY LIPOPROT CALC 30 mg/dl
[2016-12-24 09:56] LABS: CHOLESTEROL/HDL RATIO 3.3; HDL CHOLESTEROL 39 mg/dl; LDL CHOLESTEROL CALCULATED 58 mg/dl
[2016-12-24 10:02] LABS: ESTIMATED AVERAGE GLUCOSE 134 mg/dl; HA1C FLAG Normal (Normal)
== END | disposition home or self-care (01) ==
LOC: C.LAB1850 07:55
PROVIDERS: ATTEND Internal Medicine
DX: D64.9 Anemia, unspecified (principal); E11.8 Type 2 diabetes mellitus with unspecified complications; E78.5 Hyperlipidemia, unspecified

== ENCOUNTER → 2017-01-06 | Outpatient (CLI) | payer OTHER, MEDICARE ==
[2017-01-06 13:25] LABS: BLOOD UREA NITROGEN 22 mg/dl (7-18); BUN/CREATININE RATIO 20.4 (10-20)
[2017-01-06 13:43] LABS: URINE APPEARANCE CLEAR (CLEAR); URINE BILIRUBIN NEG (NEG); URINE COLOR YELLOW; URINE NITRITE NEG (NEG); URINE SPECIFIC GRAVITY 1.015 (1.000-1.030); UROBILINOGEN NEG (NEG); ZZUR CULT IF INDIC CLEAN CATCH NO
[2017-01-06 13:48] LABS: MANUAL MICROSCOPIC REQUIRED? NO; REVIEW REQ? NO
== END | disposition home or self-care (01) ==
LOC: C.LAB1850 10:25
PROVIDERS: ATTEND Urology
DX: R30.0 Dysuria (principal); N20.0 Calculus of kidney; E11.8 Type 2 diabetes mellitus with unspecified complications

== ENCOUNTER → 2017-01-12 | Outpatient (CLI) | payer OTHER, MEDICARE ==
[~2017-01-12] MED LIST changes: +OPTIRAY 300 IV PRN
--- NOTE | 2017-01-12 15:33 | DIAGNOSTIC IMAGING REPORT ---
IVP W/OR W/O TOMOGRAMS CLINICAL HISTORY: Nephrolithiasis. Left-sided flank pain. COMPARISON STUDY: Abdomen and pelvis CT 10/24/2016. KUB 10/26/2016. FINDINGS: Suboptimal study due to the overlying bowel gas. No definite renal, ureteral, or bladder calculi identified. Round density within the right mid abdomen may represent an ingested pill. Following the intravenous administration of contrast there is prompt and symmetric perfusion of the kidneys. There are suboptimal opacification of the urinary system. No hydronephrosis. No suspicious filling defects seen within the bilateral renal collecting systems, ureters, or bladder. No significant post void residual. IMPRESSION: 1. Suboptimal study due to the overlapping bowel gas. 2. No renal or ureteral calculi identified. 3. No hydronephrosis. 4. No suspicious filling defects within the urinary system Electronically signed by: Jose Raul Angela M.D. 01/12/2017 3:22 PM Dictated Date/Time: 01/12/2017 3:18 PM
== END | disposition home or self-care (01) ==
LOC: C.RAD 13:57
PROVIDERS: ATTEND Urology
DX: N20.0 Calculus of kidney (principal)

== ENCOUNTER → 2017-01-14 | Outpatient (CLI) | payer OTHER, MEDICARE ==
[~2017-01-14] MED LIST changes: -OPTIRAY 300 IV PRN
[2017-01-14 12:36] LABS: BLOOD UREA NITROGEN 28 mg/dl (7-18)
== END | disposition home or self-care (01) ==
LOC: C.LAB1850 10:29
PROVIDERS: ATTEND Urology
DX: N20.0 Calculus of kidney (principal)

== ENCOUNTER → 2017-04-17 | Outpatient (CLI) | payer OTHER, MEDICARE ==
--- NOTE | 2017-04-17 09:02 | DIAGNOSTIC IMAGING REPORT ---
R PELVIS/UNILATERAL HIP 2-3VIEWS CLINICAL HISTORY: 71 years-old Male presenting with RIGHT HIP PAIN. TECHNIQUE: Single frontal view the pelvis and frontal and frog-leg lateral views of the right hip were obtained. COMPARISON: Correlation made to CT from 10/24/2016. FINDINGS: Bony pelvis intact. Sacroiliac joints and pubic symphysis congruent. Hip joints congruent. No femoral neck fracture. No advanced degenerative change in the right hip. No radiographic soft tissue abnormality. Degenerative changes suggested in the lower lumbar spine. IMPRESSION: No advanced degenerative change or acute osseous injury of the right hip. Electronically signed by: John Goins M.D. 04/17/2017 9:01 AM Dictated Date/Time: 04/17/2017 9:00 AM
[2017-04-17 09:38] LABS: BASO % 0.7 %; BASO ABS # 0.06 K/uL (0-0.2); COMPLETE YES; EOS % 5.2 %; HEMATOCRIT 40.5 % (42-52); IG% 0.1 %; LYMPH % 28.3 %; LYMPH ABS # 2.58 K/uL (1.2-3.4); MEAN CELL VOLUME 90.2 fL (80-100); MEAN CORPUSCULAR HEMOGLOBIN 29.4 pg (25-34); MEAN CORPUSCULAR HGB CONC 32.6 g/dl (32-36); MEAN PLATELET VOLUME 11.1 fL (7.4-10.4); MONO % 8.8 %; NEUT % 56.9 %; PLATELET COUNT 169 K/uL (130-400); RED BLOOD COUNT 4.49 M/uL (4.7-6.1); WHITE BLOOD COUNT 9.12 K/uL (4.8-10.8)
[2017-04-17 09:48] LABS: ALT/SGPT 30 U/L (12-78); AST/SGOT 21 U/L (15-37); BLOOD UREA NITROGEN 24 mg/dl (7-18); BUN/CREATININE RATIO 20.1 (10-20); CALCIUM 8.9 mg/dl (8.5-10.1); CARBON DIOXIDE 28 mmol/L (21-32); CHLORIDE 104 mmol/L (98-107); CHOLESTEROL 111 mg/dl (0-200); CREATININE 1.18 mg/dl (0.60-1.40); GLUCOSE 106 mg/dl (70-99); POTASSIUM 4.7 mmol/L (3.5-5.1); SODIUM 139 mmol/L (136-145); TRIGLYCERIDES 121 mg/dl (0-150); VERY LOW DENSITY LIPOPROT CALC 24 mg/dl
[2017-04-17 09:50] LABS: ESTIMATED AVERAGE GLUCOSE 140 mg/dl; HA1C FLAG Normal (Normal)
[2017-04-17 09:52] LABS: CHOLESTEROL/HDL RATIO 2.5; HDL CHOLESTEROL 44 mg/dl; LDL CHOLESTEROL CALCULATED 43 mg/dl
[2017-04-17 10:28] LABS: LYME DISEASE AB IGG NEG (NEG)
[2017-04-17 10:29] LABS: LYME DISEASE AB IGM NEG (NEG)
== END | disposition home or self-care (01) ==
LOC: C.RAD1850 07:50
PROVIDERS: ATTEND Internal Medicine
DX: M25.551 Pain in right hip (principal); E11.8 Type 2 diabetes mellitus with unspecified complications; N40.0 Benign prostatic hyperplasia without lower urinary tract symptoms; I31.3 Pericardial effusion (noninflammatory); E78.5 Hyperlipidemia, unspecified; D64.9 Anemia, unspecified

== ENCOUNTER → 2017-07-13 | Outpatient (CLI) | payer OTHER, MEDICARE ==
--- NOTE | 2017-07-13 10:19 | DIAGNOSTIC IMAGING REPORT ---
ABD/PELVIS NO IV OR ORAL CONT CLINICAL HISTORY: 71 years-old Male presenting with N20.0 [id number] Ureteral calculus, rightno latex ej. TECHNIQUE: Multidetector CT of the abdomen and pelvis was performed without the use of intravenous contrast. IV contrast: None. A dose lowering technique was used consistent with the principles of ALARA (as low as reasonably achievable). COMPARISON: . CT DOSE (mGy.cm): The estimated cumulative dose is 1806.58 mGy.cm. FINDINGS: [place] [employer] topogram: Unremarkable. Lung bases: Lungs and pleural spaces clear. Aortic valve and coronary artery calcification. Normal heart size. Small pericardial effusion. No pleural effusion. Liver: Normal morphology. Density consistent with hepatic steatosis. Biliary: No intrahepatic or extrahepatic biliary ductal dilatation. Gallbladder surgically absent. Pancreas: Normal noncontrast appearance. Spleen: Normal noncontrast appearance. Adrenal glands: Normal noncontrast appearance. Kidneys and ureters: Nonspecific mild bilateral perinephric fat stranding. Nonobstructing punctate left renal calculus (series 3 image 183). Well-defined round hypodense lesion arising from the lower pole the left kidney measuring 5.5 cm, previously 5.8 cm, indeterminate but likely simple cyst. No hydronephrosis. Of the right renal calculus seen on prior CT is no longer present. Ureters normal bilaterally. Bladder: Normal. Pelvic organs: Prostate enlargement likely secondary to benign prostatic hyperplasia. Bowel: Mild stool burden throughout the normal caliber colon. Scattered diverticula in the colon. No bowel obstruction. Portion of small bowel contained within the wide neck ventral incisional hernia. 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 Distal small bowel anastomosis appears patent. No abnormal dilation of the pancreaticobiliary limb. Peritoneal cavity: No free fluid or intraperitoneal gas. Lymph nodes: Several prominent portacaval and lisset hepatis lymph nodes measuring up to 11 mm in the short axis (series 3 image 162). No other pathologically enlarged lymph nodes noted elsewhere in the abdomen and pelvis. Vasculature: Atherosclerosis of the normal caliber abdominal aorta. Abdominal wall: Large ventral midline wide necked incisional hernia containing portion of the antimesenteric wall of the transverse colon as well as some small bowel loops and omental and mesenteric fat. No resultant bowel obstruction. Prosthetic mesh from prior attempted repair may also be present. Recurrent herniation along the right lateral aspect. Musculoskeletal: Degenerative changes of the spine. IMPRESSION: 1. Nonobstructing punctate left renal calculus. No ureteral calculi or hydronephrosis. 2. Prostatomegaly. 3. Large ventral midline wide necked incisional hernia containing nonobstructed bowel. Evidence of prior attempted hernia repair though there is recurrent herniation along the right lateral aspect of the prosthetic mesh. 4. Postsurgical changes of right colic Vibha-en-Y gastric bypass. No complication allowing for noncontrast technique. 5. Hepatic steatosis. Electronically signed by: John Goins M.D. 07/13/2017 10:17 AM Dictated Date/Time: 07/13/2017 10:07 AM
== END | disposition home or self-care (01) ==
LOC: C.CTS 09:56
PROVIDERS: ATTEND Urology
DX: N20.2 Calculus of kidney with calculus of ureter (principal); N40.0 Benign prostatic hyperplasia without lower urinary tract symptoms

== ENCOUNTER → 2017-08-31 | Outpatient (CLI) | payer OTHER, MEDICARE ==
[2017-08-31 13:32] LABS: HEMOGLOBIN A1C 6.4 % (4.5-5.6)
[2017-08-31 14:56] LABS: CREATININE RANDOM URINE 86.8 mg/dl
[2017-08-31 15:19] LABS: ALT/SGPT 42 U/L (12-78); AST/SGOT 28 U/L (15-37); BLOOD UREA NITROGEN 23 mg/dl (7-18); CALCIUM 9.1 mg/dl (8.5-10.1); CARBON DIOXIDE 27 mmol/L (21-32); CHOLESTEROL 137 mg/dl (0-200); CREATININE 1.28 mg/dl (0.60-1.40); GLUCOSE 83 mg/dl (70-99); POTASSIUM 4.9 mmol/L (3.5-5.1); SODIUM 138 mmol/L (136-145)
[2017-08-31 15:22] LABS: LDL CHOLESTEROL CALCULATED 61 mg/dl
== END | disposition home or self-care (01) ==
LOC: C.LAB1850 10:00
PROVIDERS: ATTEND Internal Medicine
DX: E11.8 Type 2 diabetes mellitus with unspecified complications (principal); E78.5 Hyperlipidemia, unspecified

== ENCOUNTER → 2017-12-22 | Outpatient (CLI) | payer OTHER, MEDICARE ==
[~2017-12-22] MED LIST changes: -CLOP1TAB15 PO; -CPR500 PO; +CYM30 PO; +FERR325T18 PO; +FLV400 PO; -HYDR-5688 PO; -LOSA25TA18 PO; +METF-384 PO; -NRN100 PO; +NRN400 PO; +PANT1TAB4 PO; -POTATAB2 PO
[2017-12-22 14:31] LABS: BASO % 0.3 %; BASO ABS # 0.02 K/uL (0-0.2); EOS % 3.4 %; EOS ABS # 0.21 K/uL (0-0.5); IG# 0.01 K/uL (0.00-0.02); LYMPH % 22.2 %; LYMPH ABS # 1.38 K/uL (1.2-3.4); MEAN CELL VOLUME 92.5 fL (80-100); MEAN CORPUSCULAR HEMOGLOBIN 28.9 pg (25-34); MEAN CORPUSCULAR HGB CONC 31.3 g/dl (32-36); MEAN PLATELET VOLUME 11.3 fL (7.4-10.4); MONO % 4.7 %; MONO ABS # 0.29 K/uL (0.11-0.59); NEUT % 69.2 %; NEUT ABS # 4.31 K/uL (1.4-6.5); PLATELET COUNT 194 K/uL (130-400); RED CELL DISTRIBUTION WIDTH CV 14.4 % (11.5-14.5); RED CELL DISTRIBUTION WIDTH SD 48.3 fL (36.4-46.3); WHITE BLOOD COUNT 6.22 K/uL (4.8-10.8)
== END | disposition home or self-care (01) ==
LOC: C.LAB1850 12:44
PROVIDERS: ATTEND Physician Assistant
DX: D64.9 Anemia, unspecified (principal)

== ENCOUNTER → 2017-12-31 | Outpatient (CLI) | payer OTHER, MEDICARE ==
[2017-12-31 13:19] LABS: BASO % 0.5 %; BASO ABS # 0.03 K/uL (0-0.2); EOS % 3.5 %; EOS ABS # 0.21 K/uL (0-0.5); HEMATOCRIT 33.6 % (42-52); HEMOGLOBIN 10.3 g/dL (14.0-18.0); IG# 0.01 K/uL (0.00-0.02); LYMPH % 26.2 %; LYMPH ABS # 1.55 K/uL (1.2-3.4); MEAN CELL VOLUME 91.6 fL (80-100); MEAN CORPUSCULAR HEMOGLOBIN 28.1 pg (25-34); MEAN CORPUSCULAR HGB CONC 30.7 g/dl (32-36); MEAN PLATELET VOLUME 11.1 fL (7.4-10.4); MONO % 8.3 %; MONO ABS # 0.49 K/uL (0.11-0.59); NEUT % 61.3 %; NEUT ABS # 3.63 K/uL (1.4-6.5); PLATELET COUNT 161 K/uL (130-400); RED CELL DISTRIBUTION WIDTH CV 13.7 % (11.5-14.5); RED CELL DISTRIBUTION WIDTH SD 46.3 fL (36.4-46.3); WHITE BLOOD COUNT 5.92 K/uL (4.8-10.8)
[2017-12-31 13:59] LABS: BLOOD UREA NITROGEN 24 mg/dl (7-18); CALCIUM 8.5 mg/dl (8.5-10.1); CARBON DIOXIDE 25 mmol/L (21-32); CREATININE 1.44 mg/dl (0.60-1.40); GLUCOSE 195 mg/dl (70-99); POTASSIUM 4.6 mmol/L (3.5-5.1); SODIUM 138 mmol/L (136-145); TRANSFERRIN 297 mg/dl (200-360)
== END | disposition home or self-care (01) ==
LOC: C.LAB1850 12:16
PROVIDERS: ATTEND Internal Medicine
DX: K92.2 Gastrointestinal hemorrhage, unspecified (principal); D64.9 Anemia, unspecified; E53.8 Deficiency of other specified B group vitamins

== ENCOUNTER → 2018-01-08 | Outpatient (CLI) | payer OTHER, MEDICARE ==
[2018-01-08 12:18] LABS: HEMATOCRIT 35.7 % (42-52); HEMOGLOBIN 10.9 g/dL (14.0-18.0); MEAN CORPUSCULAR HEMOGLOBIN 28.1 pg (25-34); MEAN CORPUSCULAR HGB CONC 30.5 g/dl (32-36); MEAN PLATELET VOLUME 11.1 fL (7.4-10.4); PLATELET COUNT 163 K/uL (130-400); RED CELL DISTRIBUTION WIDTH CV 13.5 % (11.5-14.5); RED CELL DISTRIBUTION WIDTH SD 45.1 fL (36.4-46.3); WHITE BLOOD COUNT 6.68 K/uL (4.8-10.8)
== END | disposition home or self-care (01) ==
LOC: C.LAB1850 11:02
PROVIDERS: ATTEND Internal Medicine
DX: D64.9 Anemia, unspecified (principal)

== ENCOUNTER → 2018-01-21 | Outpatient (CLI) | payer OTHER, MEDICARE ==
[~2018-01-21] MED LIST changes: +FURO-85 PO; -METF-384 PO; +POTA1080 PO; +POTA10CA28 PO; +TRAM-10 PO
[2018-01-21 14:32] LABS: HEMATOCRIT 37.2 % (42-52); HEMOGLOBIN 11.5 g/dL (14.0-18.0); MEAN CELL VOLUME 90.5 fL (80-100); MEAN CORPUSCULAR HGB CONC 30.9 g/dl (32-36); MEAN PLATELET VOLUME 11.3 fL (7.4-10.4); PLATELET COUNT 179 K/uL (130-400); RED CELL DISTRIBUTION WIDTH CV 13.1 % (11.5-14.5); RED CELL DISTRIBUTION WIDTH SD 43.4 fL (36.4-46.3); WHITE BLOOD COUNT 7.53 K/uL (4.8-10.8)
[2018-01-21 16:35] LABS: BLOOD UREA NITROGEN 29 mg/dl (7-18); CARBON DIOXIDE 26 mmol/L (21-32); CREATININE 1.56 mg/dl (0.60-1.40); GLUCOSE 79 mg/dl (70-99); POTASSIUM 5.6 mmol/L (3.5-5.1); SODIUM 139 mmol/L (136-145)
== END | disposition home or self-care (01) ==
LOC: C.LAB1850 13:11
PROVIDERS: ATTEND Internal Medicine
DX: E11.8 Type 2 diabetes mellitus with unspecified complications (principal); D64.9 Anemia, unspecified

== ENCOUNTER → 2018-01-22 | Outpatient (CLI) | payer OTHER, MEDICARE ==
[2018-01-22 13:37] LABS: BLOOD UREA NITROGEN 31 mg/dl (7-18); CALCIUM 8.6 mg/dl (8.5-10.1); CARBON DIOXIDE 24 mmol/L (21-32); CREATININE 1.48 mg/dl (0.60-1.40); GLUCOSE 137 mg/dl (70-99); POTASSIUM 5.3 mmol/L (3.5-5.1); SODIUM 137 mmol/L (136-145)
== END | disposition home or self-care (01) ==
LOC: C.LAB1850 11:35
PROVIDERS: ATTEND Internal Medicine
DX: Z00.00 Encounter for general adult medical examination without abnormal findings (principal)

== ENCOUNTER 2021-11-09 18:51 | Inpatient (IN) ==
[2021-11-09] MEDS ORDERED: SODIUM CHLORIDE 0.9% 1000ML 1,000 ML IV ONE (19:05)
[2021-11-09] MEDS ORDERED: ACETAMINOPHEN 325 MG TAB PO STA (19:06)
[2021-11-09] MEDS ORDERED: CEFEPIME 2,000 MG in SYRINGE 0 ML IV STA (19:18)
--- NOTE | 2021-11-09 19:27 | Emergency Department Note ---
History of Present Illness General Chief complaint: Altered Mental Status Stated complaint: CONFUSION, FEVER Time Seen by Provider: 11/09/21 18:55 Source: patient, family and EMS Mode of arrival: ambulatory Limitations: clinical acuity History of Present Illness This Patient is brought in by EMS after the family said he was less responsive. His daughter checked on him this morning and he was sleeping in bed and he was also incontinent. They called EMS and when they arrived they noticed that he was very warm. They checked a blood sugar it was 316 he has increased heart rate and was hypertensive. The patient is sleepy but answers questions mostly appropriately but slowly he denies pain anywhere he denies headache he denies fall or trauma denies shortness of breath or cough denies dysuria or hematuria. I talked to both his daughter who is here as well as his son and they do not believe he has any antibiotic allergies. Home Medications Medication Instructions Recorded Confirmed Type blood sugar diagnostic, drum #51 ea 12/01/18 09/23/21 History (Accu-Chek Compact Plus Test) cyanocobalamin (vitamin B-12) 1,000 mcg IM MONTHLY ml 12/01/18 11/09/21 History 1,000 mcg/mL injection solution pediatric multivitamin no.76 1 tab PO DAILY 12/01/18 11/09/21 History (Darya Complete) syringe with needle 3 mL 25 x 5/8" #1 ea 12/01/18 09/23/21 History (BD Luer-Torres Syringe) ascorbic acid (vitamin C) 250 mg 250 mg PO DAILY #30 tab 05/30/19 11/09/21 History tablet calcium citrate 315 mg 1 tab PO BID 05/30/19 11/09/21 History calcium-vitamin D3 6.25 mcg (250 unit) tablet (Citracal + Vitamin D Maximum) folic acid 400 mcg tablet 0.4 mg PO DAILY tab 05/30/19 11/09/21 History nitroglycerin 0.4 mg sublingual 0.4 mg SL Q5M PRN #20 tab 09/22/19 11/09/21 Rx tablet pantoprazole 40 mg tablet,delayed 40 mg PO BID #180 tab 11/05/20 11/09/21 Rx release duloxetine 30 mg capsule,delayed 30 mg PO DAILY #90 cap 01/18/21 11/09/21 Rx release duloxetine 60 mg capsule,delayed 60 mg PO DAILY #90 cap 02/12/21 11/09/21 Rx release insulin human U-100 NPH-regulr 22 - 36 unit SQ QPM ml 02/22/21 11/09/21 History 70-30 mix 100 unit/mL subcutaneous susp (Humulin 70/30 U-100 Insulin) pravastatin 20 mg tablet 20 mg PO DAILY #90 tab 04/08/21 11/09/21 Rx metformin 1,000 mg tablet 1,000 mg PO BID #180 tab 07/23/21 11/09/21 Rx clopidogrel 75 mg tablet 75 mg PO DAILY #90 tab 08/23/21 11/09/21 Rx metoprolol tartrate 25 mg tablet 25 mg PO BID #180 tab 08/27/21 11/09/21 Rx tamsulosin 0.4 mg capsule 0.8 mg PO PM 90 Days #180 cap 10/23/21 11/09/21 Rx gabapentin 400 mg capsule 400 mg PO TID 11/09/21 11/09/21 History Allergies Allergy/AdvReac Type Severity Reaction Status Date / Time aspirin Allergy Intermediate HIVES Verified 11/09/21 20:34 Past Med/Surg History Medical History Acute upper GI bleed Anemia Arteriosclerotic coronary artery disease Arthritis Benign prostate hyperplasia BPH with obstruction/lower urinary tract symptoms Chronic kidney disease, stage III (moderate) Depression Diabetes mellitus type 2 with complications Esophageal reflux History of elevated prostate specific antigen (PSA) Hyperlipidemia Hypertension Nephrolithiasis Obstructive sleep apnea Upper GI bleed (2018) Vitamin B12 deficiency Surgical History History of gastric surgery for morbid obesity Hx of appendectomy Hx of cataract surgery Hx of tonsillectomy Family History Father Hypertension Prostate cancer Lung disease Aneurysm of abdominal aorta Gout Stroke syndrome Cardiac disorder Mother Dementia Heart disease Lung disease Myocardial infarction Cardiac disorder Grandfather Diabetes Grandmother Alzheimer disease Cancer Grandfather Cancer Son Hypertension Overweight Daughter Family history of endometriosis Sister Diabetes Hypertension Denies family history of Ovarian cancer Breast cancer Colorectal cancer Social History Smoking Status: Unknown if ever smoked Second Hand Exposure: No; Hx Alcohol Use: No Hx Substance Use: No Preferred Language: Tajik Visual Impairment: No Limitations Hearing Ability: Normal marital status: / current occupational status: retired Feels Safe at Home: Declines to Answer Childhood Exposure to Second-Hand Smoke: Yes Dental Care, Regularly: Yes Physical Activity Frequency: 1-2 Times per Week Seatbelt Use: always Sunscreen Use: No Review of Systems Unobtainable due to reduced consciousness Physical Exam Vital Signs Vital Signs - 24 hr 11/09/21 19:19 Temperature 39.5 C H Temperature Source Oral Pulse Rate 112 H Pulse Rhythm Regular Pulse Strength Normal Respiratory Rate 24 Respiratory Effort / Characteristics Spontaneous Accessory Muscle Use Respiratory Depth Normal Respiratory Pattern Regular Blood Pressure 177/72 H Blood Pressure Mean 107 Blood Pressure Position Lying Pulse Oximetry 89 L Oxygen Delivery Method Room Air Oxygen Flow Rate 0 Sepsis Recent Fever Within 48 Hours Yes Sepsis New/Unexplained Change in Mental Status Yes Sepsis Action Taken by Nursing MD Previously Notified Oxygen Flow Rate - Titration 2 Pulse Oximetry Post Tiitration 96 General: Well developed well nourished older male who is sleepy but arousable has normal speech he is alert to person but not place. Denies any complaints. Otherwise appears in no acute distress, breathing comfortably on room air. Normal speech HEENT: Normal cephalic atraumatic. Pupils are equal round and reactive to light. Extraocular movements are intact. Oropharynx is pink with moist mucous membranes. No swelling of the mouth lips or tongue. Neck: Supple with a midline trachea. No meningeal signs or stiffness, no JVD or bruits. No Stridor. Chest: Clear to auscultation bilaterally. No wheezes or rhonchi. No increased work of breathing. Heart: Regular rate and rhythm without murmurs or gallops. Abdomen: Soft nontender, nondistended without rebound guarding or rigidity. Central abdominal incision which is not red or warm or distended Extremities: No cyanosis clubbing or edema. No calf tenderness or assymetry Spine/Back. Non tender to palpation. No CVA tenderness Skin: Good turgor without rashes. Neurologic exam: Cranial nerves two through 12 are intact. Motor and sensation are intact and symmetrical throughout. Course Administered Medications Sodium Chloride (Nss 1000ml) 1,000 mls @ 80 mls/hr IV .[id number] [facility] Stop: 12/10/21 00:27 Last Admin: 11/10/21 01:27 Dose: 80 mls/hr Documented by: [id number] Magnesium Sulfate/Dextrose (Magnesium Sulfate / D5w) 1 gm in 100 mls @ 50 mls/hr IV Q2H KAYODE Stop: 11/10/21 04:27 Last Admin: 11/10/21 01:32 Dose: 50 mls/hr Documented by: [id number] Metoprolol Tartrate (Metoprolol Tartrate 25 Mg Tab) 25 mg PO BID KAYODE Stop: 12/10/21 00:27 Last Admin: 11/10/21 01:36 Dose: 25 mg Documented by: [id number] Pantoprazole Sodium (Pantoprazole 40 Mg Tab) 40 mg PO BID KAYODE Stop: 12/10/21 00:27 Last Admin: 11/10/21 01:36 Dose: 40 mg Documented by: [id number] Discontinued Medications Acetaminophen (Acetaminophen 325 Mg Tab) 650 mg PO NOW STA Stop: 11/09/21 19:07 Last Admin: 11/09/21 20:48 Dose: 650 mg Documented by: [id number] Sodium Chloride (Nss 1000ml) 1,000 mls @ 999 mls/hr IV .[id number] ONE Stop: 11/09/21 20:05 Last Infusion: 11/09/21 22:02 Dose: 0 mls/hr Documented by: [id number] Admin: 11/09/21 20:48 Dose: 999 mls/hr Documented by: [id number] Cefepime HCl 2,000 mg/ Syringe 20 mls @ 5 mls/min IV NOW STA; Protocol Stop: 11/09/21 19:21 Last Admin: 11/09/21 21:01 Dose: 5 mls/min Documented by: [id number] Critical Care Time Critical Care Time: Yes Total Critical Care Time: 45 Due to the patient's altered mental status, abnormal vital signs, sepsis, extensive work-up, need for multiple medications fluids and discussion with the family members and commercial solar sales consultant, I have personally spent greater than 45 minutes of critical care time in the direct management of this patient. This includes bedside care, interpretation of diagnostic studies, and testing, discussion with consultants, patient, and family members, and other required patient management activities. This 45 minutes is in excess of all separately billable procedures. Medical Decision Making Differential Diagnosis Sepsis, UTI, kidney stone, CVA, pneumonia, COVID, central neurologic process, electrolyte or metabolic abnormality, dehydration, diabetic emergency Medical Records Attestation: I reviewed the patient's medical records. Home Medications Current Medication List: was personally reviewed by me Laboratory Data Attestation: I reviewed the patient's lab results. Result diagrams: 11/09/21 19:13 11/09/21 20:51 Lab Results 11/09/21 11/09/21 11/09/21 Range/Units 19:13 19:13 19:13 WBC 25.34 H (4.8-10.8) K/uL RBC 4.33 L (4.7-6.1) M/uL Hgb 12.4 L (14.0-18.0) g/dL Hct 37.9 L (42-52) % MCV 87.5 (80-100) fL MCH 28.6 (25-34) pg MCHC 32.7 (32-36) g/dL RDW Std Deviation 44.8 (36.4-46.3) fL RDW Coeff of Rajinder 13.9 (11.5-14.5) % Plt Count 169 (130-400) K/uL MPV 10.9 H (7.4-10.4) fL Neutrophils % (Manual) 92.2 % Lymphocytes % (Manual) 4.3 % Monocytes % (Manual) 3.5 % Neutrophils # (Manual) 23.36 H (1.4-6.5) K/uL Total Absolute Neuts 23.36 H (1.4-6.5) K/uL Lymphocytes # (Manual) 1.09 L (1.2-3.4) K/uL Total Abs Lymphocytes 1.09 L (1.2-3.4) K/uL Monocytes # (Manual) 0.89 H (0.11-0.59) K/uL Toxic Vacuolation 1+ Polychromasia 1+ PT 12.6 H (9.0-12.0) Seconds INR 1.2 H (0.9-1.1) APTT 30.2 (21.0-31.0) Seconds PTT Ratio 1.1 Sodium 130 L (136-145) mmol/L Potassium (3.5-5.1) mmol/L Chloride 97 L (98-107) mmol/L Carbon Dioxide 22 (21-32) mmol/L Anion Gap 11 (3-11) BUN 40 H (6-23) mg/dl Creatinine 2.19 H (0.6-1.4) mg/dl Est Cr Clr Drug Dosing Not Reportable Est GFR ( Amer) 32.7 ml/min Est GFR (Non-Af Amer) 28.2 ml/min BUN/Creatinine Ratio 18.3 (10-20) Glucose 287 H (70-99(Fasting)) mg/dl Lactate (0.4-2.0) mmol/L Calcium 8.4 L (8.5-10.1) mg/dl Magnesium 1.5 L (1.7-2.4) mg/dl Total Bilirubin 1.2 H (0.2-1.0) mg/dl AST (13-39) U/L ALT 13 (7-52) U/L Alkaline Phosphatase 76 (34-104) U/L Troponin I High Sens 80.7 H* (0-20) pg/ml Total Protein 6.7 (6.0-8.3) gm/dl Albumin 3.5 (3.4-5.0) gm/dl Globulin 3.2 (2.5-4.0) gm/dl Albumin/Globulin Ratio 1.1 (0.9-2) Procalcitonin (0-0.5) ng/ml Urine Color Urine Appearance (Clear) Urine pH (4.5-7.5) Ur Specific Delta (1.000-1.030) Urine Protein (Negative) Urine Glucose (UA) (Negative) Urine Ketones (Negative) Urine Blood (Negative) Urine Nitrite (Negative) Urine Bilirubin (Negative) Urine Urobilinogen (Negative) Ur Leukocyte Esterase (Negative) Urine WBC (Auto) (0-5) /hpf Urine RBC (Auto) (0-4) /hpf U Hyaline Cast (Auto) (0-5) /lpf U Epithel Cells (Auto) (0-5) /lpf Urine Bacteria (Auto) (Negative) Urine Yeast SARS-CoV-2 (PCR) (Negative) Influenza Type A (PCR) (Neg) Influenza Type B (PCR) (Neg) RSV (RT-PCR) (Neg) 11/09/21 11/09/21 11/09/21 Range/Units 19:13 19:13 19:13 WBC (4.8-10.8) K/uL RBC (4.7-6.1) M/uL Hgb (14.0-18.0) g/dL Hct (42-52) % MCV (80-100) fL MCH (25-34) pg MCHC (32-36) g/dL RDW Std Deviation (36.4-46.3) fL RDW Coeff of Rajinder (11.5-14.5) % Plt Count (130-400) K/uL MPV (7.4-10.4) fL Neutrophils % (Manual) % Lymphocytes % (Manual) % Monocytes % (Manual) % Neutrophils # (Manual) (1.4-6.5) K/uL Total Absolute Neuts (1.4-6.5) K/uL Lymphocytes # (Manual) (1.2-3.4) K/uL Total Abs Lymphocytes (1.2-3.4) K/uL Monocytes # (Manual) (0.11-0.59) K/uL Toxic Vacuolation Polychromasia PT (9.0-12.0) Seconds INR (0.9-1.1) APTT (21.0-31.0) Seconds PTT Ratio Sodium (136-145) mmol/L Potassium (3.5-5.1) mmol/L Chloride (98-107) mmol/L Carbon Dioxide (21-32) mmol/L Anion Gap (3-11) BUN (6-23) mg/dl Creatinine (0.6-1.4) mg/dl Est Cr Clr Drug Dosing Est GFR ( Amer) ml/min Est GFR (Non-Af Amer) ml/min BUN/Creatinine Ratio (10-20) Glucose (70-99(Fasting)) mg/dl Lactate 2.1 H* (0.4-2.0) mmol/L Calcium (8.5-10.1) mg/dl Magnesium (1.7-2.4) mg/dl Total Bilirubin (0.2-1.0) mg/dl AST (13-39) U/L ALT (7-52) U/L Alkaline Phosphatase (34-104) U/L Troponin I High Sens (0-20) pg/ml Total Protein (6.0-8.3) gm/dl Albumin (3.4-5.0) gm/dl Globulin (2.5-4.0) gm/dl Albumin/Globulin Ratio (0.9-2) Procalcitonin 3.54 H (0-0.5) ng/ml Urine Color Urine Appearance (Clear) Urine pH (4.5-7.5) Ur Specific Delta (1.000-1.030) Urine Protein (Negative) Urine Glucose (UA) (Negative) Urine Ketones (Negative) Urine Blood (Negative) Urine Nitrite (Negative) Urine Bilirubin (Negative) Urine Urobilinogen (Negative) Ur Leukocyte Esterase (Negative) Urine WBC (Auto) (0-5) /hpf Urine RBC (Auto) (0-4) /hpf U Hyaline Cast (Auto) (0-5) /lpf U Epithel Cells (Auto) (0-5) /lpf Urine Bacteria (Auto) (Negative) Urine Yeast SARS-CoV-2 (PCR) NEGATIVE (Negative) Influenza Type A (PCR) Negative (Neg) Influenza Type B (PCR) Negative (Neg) RSV (RT-PCR) Negative (Neg) 11/09/21 11/09/21 Range/Units 19:41 20:51 WBC (4.8-10.8) K/uL RBC (4.7-6.1) M/uL Hgb (14.0-18.0) g/dL Hct (42-52) % MCV (80-100) fL MCH (25-34) pg MCHC (32-36) g/dL RDW Std Deviation (36.4-46.3) fL RDW Coeff of Rajinder (11.5-14.5) % Plt Count (130-400) K/uL MPV (7.4-10.4) fL Neutrophils % (Manual) % Lymphocytes % (Manual) % Monocytes % (Manual) % Neutrophils # (Manual) (1.4-6.5) K/uL Total Absolute Neuts (1.4-6.5) K/uL Lymphocytes # (Manual) (1.2-3.4) K/uL Total Abs Lymphocytes (1.2-3.4) K/uL Monocytes # (Manual) (0.11-0.59) K/uL Toxic Vacuolation Polychromasia PT (9.0-12.0) Seconds INR (0.9-1.1) APTT (21.0-31.0) Seconds PTT Ratio Sodium (136-145) mmol/L Potassium 4.1 (3.5-5.1) mmol/L Chloride (98-107) mmol/L Carbon Dioxide (21-32) mmol/L Anion Gap (3-11) BUN (6-23) mg/dl Creatinine (0.6-1.4) mg/dl Est Cr Clr Drug Dosing Est GFR ( Amer) ml/min Est GFR (Non-Af Amer) ml/min BUN/Creatinine Ratio (10-20) Glucose (70-99(Fasting)) mg/dl Lactate (0.4-2.0) mmol/L Calcium (8.5-10.1) mg/dl Magnesium (1.7-2.4) mg/dl Total Bilirubin (0.2-1.0) mg/dl AST 32 (13-39) U/L ALT (7-52) U/L Alkaline Phosphatase (34-104) U/L Troponin I High Sens (0-20) pg/ml Total Protein (6.0-8.3) gm/dl Albumin (3.4-5.0) gm/dl Globulin (2.5-4.0) gm/dl Albumin/Globulin Ratio (0.9-2) Procalcitonin (0-0.5) ng/ml Urine Color Yellow Urine Appearance Turbid A (Clear) Urine pH 5.5 (4.5-7.5) Ur Specific Delta 1.018 (1.000-1.030) Urine Protein 2+ H (Negative) Urine Glucose (UA) 1+ H (Negative) Urine Ketones Trace H (Negative) Urine Blood 3+ H (Negative) Urine Nitrite Negative (Negative) Urine Bilirubin Negative (Negative) Urine Urobilinogen Negative (Negative) Ur Leukocyte Esterase 3+ H (Negative) Urine WBC (Auto) >30 H (0-5) /hpf Urine RBC (Auto) 0-4 (0-4) /hpf U Hyaline Cast (Auto) 1-5 (0-5) /lpf U Epithel Cells (Auto) 10-20 H (0-5) /lpf Urine Bacteria (Auto) 4+ H (Negative) Urine Yeast Not Reportable SARS-CoV-2 (PCR) (Negative) Influenza Type A (PCR) (Neg) Influenza Type B (PCR) (Neg) RSV (RT-PCR) (Neg) Imaging Data Attestation: I personally reviewed and interpreted this imaging study as follows: My Impression: Chest x-rayatelectasis but no definite infiltrate. No findings to suggest CHF or pneumothorax Radiologist's Impression: Chest X-Ray 11/09/21 19:04 XR chest 1V portable CLINICAL HISTORY: SEPSIS TECHNIQUE: Single frontal radiograph of the chest was obtained. Comparison: Comparison is made to chest radiograph 12/07/2020 FINDINGS: No lines and tubes are seen. The cardiomediastinal silhouette is normal. The lungs are clear. No evidence of pleural effusion or pneumothorax. IMPRESSION: No acute chest disease. ACT 112: Negative or not required by law. Electronically signed by: Israel Melendez M.D. 11/09/2021 7:59 PM Abdomen/Pelvis CT 11/09/21 19:18 CT abd pelvis wo con CLINICAL HISTORY: FEver,history of kidney stones, evaluate for obstr TECHNIQUE: Helical axial images of the abdomen and pelvis were obtained. Automated dose lowering techniques and/or adjustment according to patient size were utilized for this exam. This exam was performed without intravenous contrast. CT DOSE: 2961.79 mGy.cm COMPARISON: None available at the time of this dictation. FINDINGS: Lower chest: Cardiomegaly is partially visualized. Liver: Unremarkable. No focal lesions are seen. Gallbladder and biliary tree: No calcified gallstones. Normal caliber wall. No intra- or extrahepatic biliary ductal dilation. Pancreas: Unremarkable, no focal lesions. Spleen: Unremarkable. Adrenals: Unremarkable. Kidneys and ureters: A large cyst is seen in the left kidney inferior pole. No evidence of hydronephrosis or obstructive stones. Bladder: Bladder is under distended but thickened. Reproductive organs: Prostatomegaly is seen. Bowel: Diverticulosis is seen without evidence of diverticulitis. Patient is sta tus post gastric bypass. A small hiatal hernia is seen. Lymph nodes Retroperitoneal: Unremarkable. Mesenteric: Unremarkable. Pelvic: Unremarkable. Peritoneum: Normal. Vessels: Atherosclerotic calcifications are seen. Abdominal wall: Eventration of the midline musculature is seen. There are fat- containing lateral abdominal wall hernias on the right. Bones: Degenerative changes in the visualized spine. Grade 1 anterolisthesis is seen at L4-L5. IMPRESSION: 1. No acute abnormalities and in particular no evidence of obstructive nephrolithiasis. 2. Thickening of the bladder wall with prostatomegaly compatible with chronic outlet obstruction. ACT 112: Negative or not required by law. Electronically signed by: Israel Melendez M.D. 11/09/2021 8:[address] 11/09/21 19:18 CT head/brain wo con CLINICAL HISTORY: altered loc Technique: Contiguous axial CT images of the head were acquired from the base of the skull to the vertex without intravenous contrast administration. Images were viewed in brain, subdural and bone windows. Automated dose lowering techniques and/or adjustment according to patient size were utilized for this exam. Comparison: Comparison is made to CT head 12/17/2020 Findings: The ventricles, basal cisterns, and cerebral sulci are normal. There is no acute intracranial hemorrhage or evidence of acute territorial infarction. Neither mass effect, shift of the midline structures, nor abnormal extra-axial fluid collections are shown. Imaged portions of the paranasal sinuses and mastoid air cells are clear. The orbits appear normal. There are no acute fractures of the calvaria or scalp swelling. Impression: No acute intracranial hemorrhage, no evidence of acute territorial infarction or other acute intracranial disease process. ACT 112: Negative or not required by law. Electronically signed by: Israel Melendez M.D. 11/09/2021 8:27 PM ECG Data Attestation: I personally reviewed and interpreted this ECG as follows: Indication: + weakness Rate (beats per minute): 118 Rhythm: + sinus tachycardia ECG Intervals/blocks: + IVCD, + Normal QT and + Normal AK ECG [place]: + Left axis deviation ECG ST segments: + Normal ST segments ECG Findings: no PACs or no PVCs Comparison ECG Date: from (12/17/20) Change: no significant change MDM Narrative Patient comes in as described above. He was brought in by ambulance I did see him upon arrival. He does have a fever and some confusion. He denies any complaints. Temperature here was 39 5 there is a concern for sepsis. There is no evidence to suggest a focal neurologic deficits to suggest stroke. IV access were established and he was hydrated 1 L IV normal saline bolus. He had a full sepsis type work-up. His blood sugar was 316 in the ambulance. I did give him Tylenol 650 mg for his fever. He also received cefepime 2 g IV for broad- spectrum antibiotic coverage I checked with both his son and daughter and they were not aware of any antibiotic allergies. He is allergic to aspirin. I did order a CT of his head as well as a CAT scan of his abdomen and pelvis given his history of kidney stones and wanted to make sure he did not have an obstructive uropathy or other intra-abdominal pathology responsible for his fever. He was reassessed frequently. His white count came back significantly elevated additionally his lactic acid is mildly elevated 2.1 and his procalcitonin is el evated. His urinalysis does appear to be infected and I think that he is uroseptic. CAT scan of the head is unremarkable. CAT scan the abdomen is unremarkable does not show obstructive uropathy. His temperature did come back down with the Tylenol. His follow-up lactate is dropping and starting to clear. His troponin is elevated and the second 1 was also elevated but in the same range and slightly down. His EKG does not suggest ischemic changes and he has no chest pain. Septic and will be admitted for further treatment evaluation I did consult Dr. Van who is saw him in the ER for these measures Continuous cardiac monitoring: Order was placed in EMR for continuous cardiac monitoring. Upon my interpretation the patient was noted to be in sinus tachycardia with a rate of 115 Impression & Plan Sepsis, Acute dehydration, Hyperglycemia, Elevated troponin, Lab test negative for COVID-19 virus, Urinary tract infection, Weakness Discharge Plan Visit Data Chief Complaint: Altered Mental Status Stated Complaint: CONFUSION, FEVER ED Provider: Todd Mensah Discharge Problem: Sepsis, Acute dehydration, Hyperglycemia, Elevated troponin, Lab test negative for COVID-19 virus, Urinary tract infection, Weakness Patient Disposition: Admitted As Inpatient Discharge Instructions Interventions: ED Discharge Assessment Last Done: 11/09/21 23:42
[2021-11-09 19:33] LABS: Mean Corpuscular Hgb Conc 32.7 g/dL (32-36); Mean Platelet Volume 10.9 fL (7.4-10.4); Platelet Count 169 K/uL (130-400)
[2021-11-09 19:48] LABS: INR 1.2 (0.9-1.1); Partial Thromboplastin Ratio 1.1; Partial Thromboplastin Time 30.2 Seconds (21.0-31.0); Prothrombin Time 12.6 Seconds (9.0-12.0)
[2021-11-09 19:52] LABS: Hematocrit (blood only) 37.9 % (42-52); Hemoglobin 12.4 g/dL (14.0-18.0); Mean Corpuscular Hemoglobin 28.6 pg (25-34); Mean Corpuscular Volume 87.5 fL (80-100); RDW Coefficient of Variation 13.9 % (11.5-14.5); RDW Standard Deviation 44.8 fL (36.4-46.3); Red Blood Count 4.33 M/uL (4.7-6.1); White Blood Count 25.34 K/uL (4.8-10.8)
[2021-11-09 19:53] LABS: ALC (manual) 1.09 K/uL (1.2-3.4); ANC (manual) 23.36 K/uL (1.4-6.5); Lymphocytes # (manual) 1.09 K/uL (1.2-3.4); Lymphocytes % (manual) 4.3 %; Monocytes # (manual) 0.89 K/uL (0.11-0.59); Monocytes % (manual) 3.5 %; Neutrophils # (manual) 23.36 K/uL (1.4-6.5); Neutrophils % (manual) 92.2 %; Polychromasia 1+; Toxic Vacuolation 1+
[2021-11-09 19:57] LABS: Appearance Urine Turbid (Clear); Bacteria Urine Automated 4+ (Negative); Bilirubin Urine Negative (Negative); Blood Urine 3+ (Negative); Color Urine Yellow; Glucose Urine UA 1+ (Negative); Ketones Urine Trace (Negative); Leukocyte Esterase Urine 3+ (Negative); Nitrite Urine Negative (Negative); Protein Urine 2+ (Negative); RBC Urine Automated 0-4 /hpf (0-4); Specific Gravity Urine 1.018 (1.000-1.030); Urobilinogen Urine Negative (Negative); WBC Urine Automated >30 /hpf (0-5); pH Urine 5.5 (4.5-7.5)
--- NOTE | 2021-11-09 20:00 | XRay Report ---
XR chest 1V portable CLINICAL HISTORY: SEPSIS TECHNIQUE: Single frontal radiograph of the chest was obtained. Comparison: Comparison is made to chest radiograph 12/07/2020 FINDINGS: No lines and tubes are seen. The cardiomediastinal silhouette is normal. The lungs are clear. No evid ence of pleural effusion or pneumothorax. IMPRESSION: No acute chest disease. ACT 112: Negative or not required by law. Electronically signed by: Israel Melendez M.D. 11/09/2021 7:59 PM
[2021-11-09 20:08] LABS: Alanine Aminotransferase 13 U/L (7-52); Albumin Globulin Ratio 1.1 (0.9-2); Albumin Level 3.5 gm/dl (3.4-5.0); Alkaline Phosphatase 76 U/L (34-104); Anion Gap 11 (3-11); BUN Creatinine Ratio 18.3 (10-20); Bilirubin,Total 1.2 mg/dl (0.2-1.0); Blood Urea Nitrogen 40 mg/dl (6-23); Calcium 8.4 mg/dl (8.5-10.1); Carbon Dioxide 22 mmol/L (21-32); Chloride 97 mmol/L (98-107); Est GFR (African American) 32.7 ml/min; Est GFR (Non-African American) 28.2 ml/min; Globulin 3.2 gm/dl (2.5-4.0); Glucose 287 mg/dl (70-99(Fasting)); Magnesium 1.5 mg/dl (1.7-2.4); Sodium 130 mmol/L (136-145); Total Protein 6.7 gm/dl (6.0-8.3)
[2021-11-09 20:09] LABS: Troponin I High Sensitivity 80.7 pg/ml (0-20)
--- NOTE | 2021-11-09 20:28 | CT Scan Report ---
CT head/brain wo con CLINICAL HISTORY: altered loc Technique: Contiguous axial CT images of the head were acquired from the base of the skull to the zach jazzy without intravenous contrast administration. Images were viewed in brain, subdural and [facility] Automated dose lowering techniques and/or adjustment according to patient size were utilized for this exam. Comparison: Comparison is made to CT head 12/17/2020 Findings: The ventricles, basal cisterns, and cerebral sulci are normal. There is no acute intracranial hemorrh age or evidence of acute territorial infarction. Neither mass effect, shift of the midline structures , nor abnormal extra-axial fluid collections are shown. Imaged portions of the paranasal sinuses and mastoid air cells are clear. The orbits appear normal. There are no acute fractures of the calvaria or scalp swelling. Impression: No acute intracranial hemorrhage, no evidence of acute territorial infarction or other acute intracra nial disease process. ACT 112: Negative or not required by law. Electronically signed by: Israel Melendez M.D. 11/09/2021 8:27 PM
[2021-11-09 20:32] LABS: Influenza A virus by PCR Negative (Neg); Influenza B virus by PCR Negative (Neg); RSV by PCR Negative (Neg); SARS CoV2 RNA(COVID-19) InHosp NEGATIVE (Negative)
--- NOTE | 2021-11-09 20:40 | CT Scan Report ---
CT abd pelvis wo con CLINICAL HISTORY: FEver,history of kidney stones, evaluate for obstr TECHNIQUE: Helical axial images of the abdomen and pelvis were obtained. Automated dose lowering tech niques and/or adjustment according to patient size were utilized for this exam. This exam was perfor med without intravenous contrast. CT DOSE: 2961.79 mGy.cm COMPARISON: None available at the time of this dictation. FINDINGS: Lower chest: Cardiomegaly is partially visualized. Liver: Unremarkable. No focal lesions are seen. Gallbladder and biliary tree: No calcified gallstones. Normal caliber wall. No intra- or extrahepatic biliary ductal dilation. Pancreas: Unremarkable, no focal lesions. Spleen: Unremarkable. Adrenals: Unremarkable. Kidneys and ureters: A large cyst is seen in the left kidney inferior pole. No evidence of hydronephr osis or obstructive stones. Bladder: Bladder is under distended but thickened. Reproductive organs: Prostatomegaly is seen. Bowel: Diverticulosis is seen without evidence of diverticulitis. Patient is status post gastric bypa ss. A small hiatal hernia is seen. Lymph nodes Retroperitoneal: Unremarkable. Mesenteric: Unremarkable. Pelvic: Unremarkable. Peritoneum: Normal. Vessels: Atherosclerotic calcifications are seen. Abdominal wall: Eventration of the midline musculature is seen. There are fat-containing lateral abdo august wall hernias on the right. Bones: Degenerative changes in the visualized spine. Grade 1 anterolisthesis is seen at L4-L5. IMPRESSION: 1. No acute abnormalities and in particular no evidence of obstructive nephrolithiasis. 2. Thickening of the bladder wall with prostatomegaly compatible with chronic outlet obstruction. ACT 112: Negative or not required by law. Electronically signed by: Israel Melendez M.D. 11/09/2021 8:38 PM
[2021-11-09 21:29] LABS: Potassium 4.1 mmol/L (3.5-5.1)
--- NOTE | 2021-11-09 21:33 | History & Physical Report ---
Date of Service November 09, 2021 Assessment & Plan (1) Sepsis: Plan: Sepsis/dehydration/UTI/BPH with LUTS- Follow urine culture and sensitivity Cefepime 2 g IV every 12 hours Status post 1 L normal saline from the ED NSS at 80 mils per hour x1 L Zofran 4 mg IV every 6 hours as needed Continue tamsulosin 0.8 mg p.o. at bedtime (2) Acute dehydration: Plan: See above (3) Urinary tract infection: Plan: See above (4) BPH with obstruction/lower urinary tract symptoms: Plan: See above (5) Elevated troponin: Plan: Troponin 80.7 upon admission The patient will be admitted to telemetry for serial cardiac enzymes, serial EKG's, cardiac rhythm monitoring and a 2-D echocardiogram with Dopplers. 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: Plan: Hold metformin Decrease 70/30 from 22-36 units to 16 units subcu in the evening starting tomorrow (12) Depression: Plan: Continue duloxetine History of Present Illness Chief Complaint: The patient presents to the emergency department due to family concerns regarding him being less alert and responsive after checking on him earlier in the morning today Primary Care Provider: Gm Villatoro MD The patient is a 76-year-old male with a past medical history including urinary tract infection, BPH with LUTS, degenerative knee arthritis, CKD stage III, B12 deficiency, JB, hypertension, hyperlipidemia, GERD, balance disorder, CAD and symptomatic anemia. His daughter had checked on the patient earlier in the morning, and reported that he was sleeping in bed but was also incontinent. Later on in the day when she checked on him, he was less responsive, and EMS was called to assess the patient. The patient denied any recent falls or trauma and had no specific complaints, but was noted to be lethargic Allergies Allergy/AdvReac Type Severity Reaction Status Date / Time aspirin Allergy Intermediate HIVES Verified 11/09/21 20:34 Home Medications Medication Instructions Recorded Confirmed Type blood sugar diagnostic, drum #51 ea 12/01/18 09/23/21 History (Accu-Chek Compact Plus Test) cyanocobalamin (vitamin B-12) 1,000 mcg IM MONTHLY ml 12/01/18 11/09/21 History 1,000 mcg/mL injection solution pediatric multivitamin no.76 1 tab PO DAILY 12/01/18 11/09/21 History (Flintstones Complete) syringe with needle 3 mL 25 x 5/8" #1 ea 12/01/18 09/23/21 History (BD Luer-Torres Syringe) ascorbic acid (vitamin C) 250 mg 250 mg PO DAILY #30 tab 05/30/19 11/09/21 History tablet calcium citrate 315 mg 1 tab PO BID 05/30/19 11/09/21 History calcium-vitamin D3 6.25 mcg (250 unit) tablet (Citracal + Vitamin D Maximum) folic acid 400 mcg tablet 0.4 mg PO DAILY tab 05/30/19 11/09/21 History nitroglycerin 0.4 mg sublingual 0.4 mg SL Q5M PRN #20 tab 09/22/19 11/09/21 Rx tablet pantoprazole 40 mg tablet,delayed 40 mg PO BID #180 tab 11/05/20 11/09/21 Rx release duloxetine 30 mg capsule,delayed 30 mg PO DAILY #90 cap 01/18/21 11/09/21 Rx release duloxetine 60 mg capsule,delayed 60 mg PO DAILY #90 cap 02/12/21 11/09/21 Rx release insulin human U-100 NPH-regulr 22 - 36 unit SQ QPM ml 02/22/21 11/09/21 History 70-30 mix 100 unit/mL subcutaneous susp (Humulin 70/30 U-100 Insulin) pravastatin 20 mg tablet 20 mg PO DAILY #90 tab 04/08/21 11/09/21 Rx metformin 1,000 mg tablet 1,000 mg PO BID #180 tab 07/23/21 11/09/21 Rx clopidogrel 75 mg tablet 75 mg PO DAILY #90 tab 08/23/21 11/09/21 Rx metoprolol tartrate 25 mg tablet 25 mg PO BID #180 tab 08/27/21 11/09/21 Rx tamsulosin 0.4 mg capsule 0.8 mg PO PM 90 Days #180 cap 10/23/21 11/09/21 Rx gabapentin 400 mg capsule 400 mg PO TID 11/09/21 11/09/21 History Past Med/Surg History Medical History Acute upper GI bleed Anemia Arteriosclerotic coronary artery disease Arthritis Benign prostate hyperplasia BPH with obstruction/lower urinary tract symptoms Chronic kidney disease, stage III (moderate) Depression Diabetes mellitus type 2 with complications Esophageal reflux History of elevated prostate specific antigen (PSA) Hyperlipidemia Hypertension Nephrolithiasis Obstructive sleep apnea Upper GI bleed (2018) Vitamin B12 deficiency Surgical History History of gastric surgery for morbid obesity Hx of appendectomy Hx of cataract surgery Hx of tonsillectomy Family History Father Hypertension Prostate cancer Lung disease Aneurysm of abdominal aorta Gout Stroke syndrome Cardiac disorder Mother Dementia Heart disease Lung disease Myocardial infarction Cardiac disorder Grandfather Diabetes Grandmother Alzheimer disease Cancer Grandfather Cancer Son Hypertension Overweight Daughter Family history of endometriosis Sister Diabetes Hypertension Denies family history of Ovarian cancer Breast cancer Colorectal cancer Social History Smoking Status: Unknown if ever smoked Second Hand Exposure: No; Hx Alcohol Use: No Hx Substance Use: No Preferred Language: Grenadian Communication Ability: Effective Visual Impairment: No Limitations Hearing Ability: Normal Print Line Inspector Required: No Beliefs That Will Affect Care: None marital status: / Current Living Situation: Alone current occupational status: retired Other Information That Helps Us Care for You: Yes Feels Safe at Home: Yes Childhood Exposure to Second-Hand Smoke: Yes Dental Care, Regularly: Yes Physical Activity Frequency: 1-2 Times per Week Seatbelt Use: always Sunscreen Use: No Assistive Devices: Oxygen - Continuous Review of Systems Review of Systems: The patient denies chest pain, palpitations, shortness of breath, dyspnea on exertion, cough, lower extremity swelling, sore throat, fevers, chills, sweats, nausea, vomiting, diarrhea , constipation, abdominal pain, pelvic pain, blood in urine or stool, lightheadedness, dizziness, headache, loss of consciousness, rash, abnormal bruising or bleeding, focal weakness, numbness or tingling in arms or legs, generalized arthralgias or myalgias, back or neck pain, or night sweats. The review of systems is otherwise negative other than for that already noted above, and at least 10 systems have been reviewed. Physical Exam Physical Exam: The patient is awake, and lethargic. Well developed and well nourished, normocephalic and atraumatic, lying in bed and in no acute distress. HEENT--PERRL, EOMI, mucous membranes and oropharynx dry. Neck--supple. No JVD. No bruits. Thyroid normal, trachea midline, no adenopathy. Heart--normal S1 and S2. No murmurs, rubs or gallops. Lungs--clear bilaterally, no respiratory distress, no accessory muscle use. Abdomen--normal bowel sounds and soft. Nontender. Nondistended. Obese Extremities--no cyanosis or clubbing. No edema. Dermatologic--normal skin turgor, normal color, no abnormal lymph nodes, no rash. Neurologic--cranial nerves II through XII grossly intact. Rheumatologic--normal range of motion. Psychiatric--normal affect. Results & Data Results & Data ([facility]) Vital Signs (Past 12 Hours) Vital Signs Temp Pulse Resp BP Pulse Ox 11/09/21 19:19 39.5 C H 112 H 24 177/72 H 89 L Laboratory Results Laboratory Results WBC 25.34 K/uL (4.8-10.8) H 11/09/21 19:13 RBC 4.33 M/uL (4.7-6.1) L 11/09/21 19:13 Hgb 12.4 g/dL (14.0-18.0) L 11/09/21 19:13 Hct 37.9 % (42-52) L 11/09/21 19:13 MCV 87.5 fL (80-100) 11/09/21 19:13 MCH 28.6 pg (25-34) 11/09/21 19:13 MCHC 32.7 g/dL (32-36) 11/09/21 19:13 RDW Std Deviation 44.8 fL (36.4-46.3) 11/09/21 19:13 RDW Coeff of Rajinder 13.9 % (11.5-14.5) 11/09/21 19:13 Plt Count 169 K/uL (130-400) 11/09/21 19:13 MPV 10.9 fL (7.4-10.4) H 11/09/21 19:13 Neutrophils % (Manual) 92.2 % 11/09/21 19:13 Lymphocytes % (Manual) 4.3 % 11/09/21 19:13 Monocytes % (Manual) 3.5 % 11/09/21 19:13 Neutrophils # (Manual) 23.36 K/uL (1.4-6.5) H 11/09/21 19:13 Total Absolute Neuts 23.36 K/uL (1.4-6.5) H 11/09/21 19:13 Lymphocytes # (Manual) 1.09 K/uL (1.2-3.4) L 11/09/21 19:13 Total Abs Lymphocytes 1.09 K/uL (1.2-3.4) L 11/09/21 19:13 Monocytes # (Manual) 0.89 K/uL (0.11-0.59) H 11/09/21 19:13 Toxic Vacuolation 1+ 11/09/21 19:13 Polychromasia 1+ 11/09/21 19:13 PT 12.6 Seconds (9.0-12.0) H 11/09/21 19:13 INR 1.2 (0.9-1.1) H 11/09/21 19:13 APTT 30.2 Seconds (21.0-31.0) 11/09/21 19:13 PTT Ratio 1.1 11/09/21 19:13 Sodium 130 mmol/L (136-145) L 11/09/21 19:13 Potassium 4.1 mmol/L (3.5-5.1) 11/09/21 20:51 Chloride 97 mmol/L (98-107) L 11/09/21 19:13 Carbon Dioxide 22 mmol/L (21-32) 11/09/21 19:13 Anion Gap 11 (3-11) 11/09/21 19:13 BUN 40 mg/dl (6-23) H 11/09/21 19:13 Creatinine 2.19 mg/dl (0.6-1.4) H 11/09/21 19:13 Est Cr Clr Drug Dosing Not Reportable 11/09/21 19:13 Est GFR ( Amer) 32.7 ml/min 11/09/21 19:13 Est GFR (Non-Af Amer) 28.2 ml/min 11/09/21 19:13 BUN/Creatinine Ratio 18.3 (10-20) 11/09/21 19:13 Glucose 287 mg/dl (70-99(Fasting)) H 11/09/21 19:13 POC Glucose 267 mg/dl (70-99) H 11/10/21 00:35 Lactate 1.6 mmol/L (0.4-2.0) 11/09/21 21:41 Calcium 8.4 mg/dl (8.5-10.1) L 11/09/21 19:13 Magnesium 1.5 mg/dl (1.7-2.4) L 11/09/21 19:13 Total Bilirubin 1.2 mg/dl (0.2-1.0) H 11/09/21 19:13 AST 32 U/L (13-39) 11/09/21 20:51 ALT 13 U/L (7-52) 11/09/21 19:13 Alkaline Phosphatase 76 U/L (34-104) 11/09/21 19:13 Troponin I High Sens 73.8 pg/ml (0-20) H* 11/09/21 21:41 Total Protein 6.7 gm/dl (6.0-8.3) 11/09/21 19:13 Albumin 3.5 gm/dl (3.4-5.0) 11/09/21 19:13 Globulin 3.2 gm/dl (2.5-4.0) 11/09/21 19:13 Albumin/Globulin Ratio 1.1 (0.9-2) 11/09/21 19:13 Procalcitonin 3.54 ng/ml (0-0.5) H 11/09/21 19:13 Urine Color Yellow 11/09/21 19:41 Urine Appearance Turbid (Clear) A 11/09/21 19:41 Urine pH 5.5 (4.5-7.5) 11/09/21 19:41 Ur Specific [place] 1.018 (1.000-1.030) 11/09/21 19:41 Urine Protein 2+ (Negative) H 11/09/21 19:41 Urine Glucose (UA) 1+ (Negative) H 11/09/21 19:41 Urine Ketones Trace (Negative) H 11/09/21 19:41 Urine Blood 3+ (Negative) H 11/09/21 19:41 Urine Nitrite Negative (Negative) 11/09/21 19:41 Urine Bilirubin Negative (Negative) 11/09/21 19:41 Urine Urobilinogen Negative (Negative) 11/09/21 19:41 Ur Leukocyte Esterase 3+ (Negative) H 11/09/21 19:41 Urine WBC (Auto) >30 /hpf (0-5) H 11/09/21 19:41 Urine RBC (Auto) 0-4 /hpf (0-4) 11/09/21 19:41 U Hyaline Cast (Auto) 1-5 /lpf (0-5) 11/09/21 19:41 U Epithel Cells (Auto) 10-20 /lpf (0-5) H 11/09/21 19:41 Urine Bacteria (Auto) 4+ (Negative) H 11/09/21 19:41 Urine Yeast Not Reportable 11/09/21 19:41 SARS-CoV-2 (PCR) NEGATIVE (Negative) 11/09/21 19:13 Influenza Type A (PCR) Negative (Neg) 11/09/21 19:13 Influenza Type B (PCR) Negative (Neg) 11/09/21 19:13 RSV (RT-PCR) Negative (Neg) 11/09/21 19:13 Impressions Chest X-Ray 11/09/21 19:04 XR chest 1V portable CLINICAL HISTORY: SEPSIS TECHNIQUE: Single frontal radiograph of the chest was obtained. Comparison: Comparison is made to chest radiograph 12/07/2020 FINDINGS: No lines and tubes are seen. The cardiomediastinal silhouette is normal. The lungs are clear. No evidence of pleural effusion or pneumothorax. IMPRESSION: No acute chest disease. ACT 112: Negative or not required by law. Electronically signed by: Israel Melendez M.D. 11/09/2021 7:59 PM Abdomen/Pelvis CT 11/09/21 19:18 CT abd pelvis wo con CLINICAL HISTORY: FEver,history of kidney stones, evaluate for obstr TECHNIQUE: Helical axial images of the abdomen and pelvis were obtained. Automated dose lowering techniques and/or adjustment according to patient size were utilized for this exam. This exam was performed without intravenous contrast. CT DOSE: 2961.79 mGy.cm COMPARISON: None available at the time of this dictation. FINDINGS: Lower chest: Cardiomegaly is partially visualized. Liver: Unremarkable. No focal lesions are seen. Gallbladder and biliary tree: No calcified gallstones. Normal caliber wall. No intra- or extrahepatic biliary ductal dilation. Pancreas: Unremarkable, no focal lesions. Spleen: Unremarkable. Adrenals: Unremarkable. Kidneys and ureters: A large cyst is seen in the left kidney inferior pole. No evidence of hydronephrosis or obstructive stones. Bladder: Bladder is under distended but thickened. Reproductive organs: Prostatomegaly is seen. Bowel: Diverticulosis is seen without evidence of diverticulitis. Patient is status post gastric bypass. A small hiatal hernia is seen. Lymph nodes Retroperitoneal: Unremarkable. Mesenteric: Unremarkable. Pelvic: Unremarkable. Peritoneum: Normal. Vessels: Atherosclerotic calcifications are seen. Abdominal wall: Eventration of the midline musculature is seen. There are fat- containing lateral abdominal wall hernias on the right. Bones: Degenerative changes in the visualized spine. Grade 1 anterolisthesis is seen at L4-L5. IMPRESSION: 1. No acute abnormalities and in particular no evidence of obstructive nephrolithiasis. 2. Thickening of the bladder wall with prostatomegaly compatible with chronic outlet obstruction. ACT 112: Negative or not required by law. Electronically signed by: Israel Melendez M.D. 11/09/2021 8:[address] 11/09/21 19:18 CT head/brain wo con CLINICAL HISTORY: altered loc Technique: Contiguous axial CT images of the head were acquired from the base of the skull to the vertex without intravenous contrast administration. Images were viewed in brain, subdural and bone windows. Automated dose lowering techniques and/or adjustment according to patient size were utilized for this exam. Comparison: Comparison is made to CT head 12/17/2020 Findings: The ventricles, basal cisterns, and cerebral sulci are normal. There is no acute intracranial hemorrhage or evidence of acute territorial infarction. Neither mass effect, shift of the midline structures, nor abnormal extra-axial fluid collections are shown. Imaged portions of the paranasal sinuses and mastoid air cells are clear. The orbits appear normal. There are no acute fractures of the calvaria or scalp swelling. Impression: No acute intracranial hemorrhage, no evidence of acute territorial infarction or other acute intracranial disease process. ACT 112: Negative or not required by law. Electronically signed by: Israel Melendez M.D. 11/09/2021 8:27 PM Code Status & VTE Plan Code Status Full code VTE Prophylaxis Plan VTE Prophylaxis will be ordered: Yes PG Care Time/CCT Total # of Minutes Spent Total Time Spent with Patient: Total time spent is greater than 50% in coordination of care (as documented) at patient's floor/unit and/or counseling patient: Coding Level of Care Code 90408 Initial Inpt Care Lvl 3 Diagnoses Sepsis A41.9 Sepsis acute organ dysfunction status: unspecified Sepsis type: sepsis due to unspecified organism Acute dehydration E86.0 Elevated troponin R77.8 Urinary tract infection N30.00 Hematuria presence: without hematuria Urinary tract infection type: acute cystitis BPH with obstruction/lower urinary tract symptoms N40.1; N13.8 Weakness R53.1 Chronic kidney disease, stage III (moderate) N18.3 Hypertension I10 Hyperlipidemia E78.5 Esophageal reflux K21.9 Diabetes mellitus type 2 with complications E11.8 Depression F32.9 (1) Sepsis Sepsis acute organ dysfunction status: unspecified Sepsis type: sepsis due to unspecified organism Qualified Code(s): A41.9 - Sepsis, unspecified organism (2) Urinary tract infection Hematuria presence: without hematuria Urinary tract infection type: acute cystitis Qualified Code(s): N30.00 - Acute cystitis without hematuria
[2021-11-10] MEDS ORDERED: CARBOHYDRATES FOR HYPOGLYCEMIA PO PRN (00:28)
[2021-11-10] MEDS ORDERED: GLUCOSE 40% GEL 15 GM TUBE PO PRN (00:28)
[2021-11-10] MEDS ORDERED: ONDANSETRON INJ 2 MG/ML 2 ML VIAL IV PRN (00:28)
[2021-11-10] MEDS ORDERED: DEXTROSE 50% 50 ML SYRINGE IV PRN (00:28)
[2021-11-10] MEDS ORDERED: NITROGLYCERIN SL 0.4 MG/TAB TAB SL PRN (00:28)
[2021-11-10] MEDS ORDERED: GLUCAGON FOR INJ 1 MG VIAL SQ PRN (00:28)
[2021-11-10] MEDS ORDERED: CYANOCOBALAMIN 1000 MCG/ML VIAL IM SCH (00:28)
[2021-11-10] MEDS ORDERED: GLUCOSE 10 TABS/TUBE PO PRN (00:28)
[2021-11-10] MEDS ORDERED: Patient's HEIGHT &/or WEIGHT Needed STA ×2 (01:02→03:01)
[2021-11-10] MEDS: SODIUM CHLORIDE 0.9% 1000ML 1,000 ML IV SCH ×2 (01:27→19:50)
[2021-11-10] MEDS: MAGNESIUM SULFATE / D5W 1 GM/100 ML BAG IV SCH ×2 (01:32→04:00)
[2021-11-10] MEDS: PANTOprazole 40 MG TAB PO SCH ×3 (01:36→20:19)
[2021-11-10] MEDS: METOPROLOL TARTRATE 25 MG TAB PO SCH ×3 (01:36→20:19)
[2021-11-10] MEDS: INSULIN ASPART PER UNIT SC SCH ×5 (04:50→20:14)
[2021-11-10] MEDS: ENOXAPARIN INJ 40 MG/0.4 ML SYR SQ SCH ×2 (06:11→16:53)
[2021-11-10 06:12] LABS: Hematocrit (blood only) 36.6 % (42-52); Hemoglobin 11.8 g/dL (14.0-18.0); Mean Corpuscular Hemoglobin 28.2 pg (25-34); Mean Corpuscular Hgb Conc 32.2 g/dL (32-36); Mean Corpuscular Volume 87.6 fL (80-100); Mean Platelet Volume 11.1 fL (7.4-10.4); Platelet Count 141 K/uL (130-400); RDW Standard Deviation 45.2 fL (36.4-46.3); Red Blood Count 4.18 M/uL (4.7-6.1); White Blood Count 21.08 K/uL (4.8-10.8)
[2021-11-10 06:34] LABS: Albumin Level 3.2 gm/dl (3.4-5.0); BUN Creatinine Ratio 21.4 (10-20); Bilirubin,Total 1.1 mg/dl (0.2-1.0); Calcium 8.2 mg/dl (8.5-10.1); Creatinine Clr Calc Pharmacy 47.2 ml/min; Est GFR (African American) 39.6 ml/min; Est GFR (Non-African American) 34.2 ml/min; Globulin 3.1 gm/dl (2.5-4.0); Potassium 4.3 mmol/L (3.5-5.1); Total Protein 6.3 gm/dl (6.0-8.3)
[2021-11-10 06:46] LABS: Basophils # (auto) 0.02 K/uL (0-0.2); Basophils % (auto) 0.1 %; Eosinophils # (auto) 0.01 K/uL (0-0.5); Immature Granulocytes % (auto) 0.9 %; Lymphocytes # (auto) 0.82 K/uL (1.2-3.4); Lymphocytes % (auto) 3.9 %; Monocytes # (auto) 2.13 K/uL (0.11-0.59); Monocytes % (auto) 10.1 %
[2021-11-10] MEDS: MULTIVITAMIN CHEWABLE TAB PO SCH (08:31)
[2021-11-10] MEDS: ASCORBIC ACID 500 MG TAB PO SCH (08:32)
[2021-11-10] MEDS: FOLIC ACID 400 MCG TAB PO SCH (08:32)
[2021-11-10] MEDS: DULoxetine HCL 60 MG CAP PO SCH (08:33)
[2021-11-10] MEDS: CLOPIDOGREL BISULFATE 75 MG TAB PO SCH (08:33)
[2021-11-10] MEDS: GABAPENTIN 400 MG CAP PO SCH ×3 (08:33→20:18)
[2021-11-10] MEDS: PRAVASTATIN SOD 20 MG TAB PO SCH (08:35)
[2021-11-10] MEDS: DULoxetine HCL 30 MG CAP PO SCH (08:35)
[2021-11-10] MEDS ORDERED: CALCIUM CITRATE 950 MG TAB PO SCH (09:00)
--- NOTE | 2021-11-10 09:32 | Hospitalist Progress Note ---
Date of Service November 10, 2021 Assessment & Plan (1) Sepsis: Plan: 2nd to UTI. can't rule out prostatitis given his BPH. cont cefepime. follow blood/urine cx's. repeat cbc am. hemodynamically stable. (2) Acute dehydration: Plan: cont isotonic fluids. BMP am. (3) Urinary tract infection: Plan: See #1 above. Urine cx with GNR. Cont cefepime for now; narrow when able. Will need AYUSH at some point (or PSA) - r/o prostatitis. (4) BPH with obstruction/lower urinary tract symptoms: Plan: Already on flomax 0.8mg daily and despite such has LUTS. Add finasteride daily. Last psa early 2021 was wnl. (5) Elevated troponin: Plan: Troponin 80.7 upon admission. This is likely myocardial demand ischemia in setting of sepsis/UTI. No ischemic symptoms. EKG without ST changes. Follow. (6) Weakness: Plan: 2nd to #1. Will need PT/OT. (7) Chronic kidney disease, stage III (moderate): Plan: Baseline CrCl is about 30. Repeat BMP am. 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: Plan: Hold metformin HOLD 70/30 Change to lantus 15 units qam Add novolog SSI BSGs ac/hs (12) Depression: Plan: Continue duloxetine (13) Arteriosclerotic coronary artery disease: Plan: follows with [facility] h/o CAD s/p LAD stent just saw cardiology 08/2021 has f/u with them in 03/2022 last echo 01/2021 - LV wnl, normal wall motion; has known aortic root dilatation (14) Acute metabolic encephalopathy: Plan: 2nd to sepsis/UTI, hyponatremia, etc antibiotics fluids supportive care avoid sedatives (15) DVT prophylaxis: Plan: lovenox Plan: updated pt's daughter by phone this evening extensively Admission and Anticipated Discharge Date Admission Date: November 09, 2021 Subjective patient awake, alert, answering questions - but still confused, unable to tell me date/month/day he denies any complaints appetite is poor denies any cp or dyspnea no abd pain he admits that at home he has significant nocturia & slowly of his stream lives alone in apartment at [facility] in [place] Review of Systems Review of Systems: gen - no fevers or chills; is fatigued; appetite poor cv - no cp, no orthopnea pulm - no cough or dyspnea GI - no abd pain Physical Exam Physical Exam: gen - NAD, pleasant - but confused; obese mouth - MM dry neck - no JVD heart - RRR, s1 s2 lungs - CTA b/l abd - soft NT ND BS+ ext - no edema, pulses 2+ b/l Results & Data Results & Data ([facility]) Vital Signs (Past 12 Hours) Vital Signs Temp Pulse Pulse Resp BP BP Pulse Ox 11/10/21 08:08 36.8 C 82 19 135/77 96 11/10/21 03:14 36.7 C 74 18 101/60 98 11/10/21 00:32 11/10/21 00:13 89 11/09/21 23:50 36.8 C 99 H 18 162/80 H 94 11/09/21 23:42 37.0 C 96 H 18 150/81 H 97 11/09/21 22:00 102 H 18 145/72 H 93 Pulse Ox 11/10/21 08:08 11/10/21 03:14 11/10/21 00:32 94 11/10/21 00:13 11/09/21 23:50 11/09/21 23:42 11/09/21 22:00 Laboratory Results Laboratory Results - last 24 hr 11/09/21 11/09/21 11/09/21 19:13 19:13 19:13 WBC 25.34 H RBC 4.33 L Hgb 12.4 L Hct 37.9 L MCV 87.5 MCH 28.6 MCHC 32.7 RDW Std Deviation 44.8 RDW Coeff of Rajinder 13.9 Plt Count 169 MPV 10.9 H Immature Gran % (Auto) Neut % (Auto) Lymph % (Auto) [place] % (Auto) Eos % (Auto) Baso % (Auto) Neut # (Auto) Lymph # (Auto) [place] # (Auto) Eos # (Auto) Baso # (Auto) Immature Gran # (Auto) Neutrophils % (Manual) 92.2 Lymphocytes % (Manual) 4.3 Monocytes % (Manual) 3.5 Neutrophils # (Manual) 23.36 H Total Absolute Neuts 23.36 H Lymphocytes # (Manual) 1.09 L Total Abs Lymphocytes 1.09 L Monocytes # (Manual) 0.89 H Toxic Vacuolation 1+ Polychromasia 1+ PT 12.6 H INR 1.2 H APTT 30.2 PTT Ratio 1.1 Sodium 130 L Potassium Chloride 97 L Carbon Dioxide 22 Anion Gap 11 BUN 40 H Creatinine 2.19 H Est Cr Clr Drug Dosing Not Reportable Est GFR ( Amer) 32.7 Est GFR (Non-Af Amer) 28.2 BUN/Creatinine Ratio 18.3 Glucose 287 H POC Glucose Estimat Average Glucose Hemoglobin A1c Lactate Calcium 8.4 L Magnesium 1.5 L Total Bilirubin 1.2 H AST ALT 13 Alkaline Phosphatase 76 Troponin I High Sens 80.7 H* Total Protein 6.7 Albumin 3.5 Globulin 3.2 Albumin/Globulin Ratio 1.1 Procalcitonin Urine Color Urine Appearance Urine pH Ur Specific [place] Urine Protein Urine Glucose (UA) Urine Ketones Urine Blood Urine Nitrite Urine Bilirubin Urine Urobilinogen Ur Leukocyte Esterase Urine WBC (Auto) Urine RBC (Auto) U Hyaline Cast (Auto) U Epithel Cells (Auto) Urine Bacteria (Auto) Urine Yeast SARS-CoV-2 (PCR) Influenza Type A (PCR) Influenza Type B (PCR) RSV (RT-PCR) 11/09/21 11/09/21 11/09/21 19:13 19:13 19:13 WBC RBC Hgb Hct MCV MCH MCHC RDW Std Deviation RDW Coeff of Rajinder Plt Count MPV Immature Gran % (Auto) Neut % (Auto) Lymph % (Auto) [place] % (Auto) Eos % (Auto) Baso % (Auto) Neut # (Auto) Lymph # (Auto) [place] # (Auto) Eos # (Auto) Baso # (Auto) Immature Gran # (Auto) Neutrophils % (Manual) Lymphocytes % (Manual) Monocytes % (Manual) Neutrophils # (Manual) Total Absolute Neuts Lymphocytes # (Manual) Total Abs Lymphocytes Monocytes # (Manual) Toxic Vacuolation Polychromasia PT INR APTT PTT Ratio Sodium Potassium Chloride Carbon Dioxide Anion Gap BUN Creatinine Est Cr Clr Drug Dosing Est GFR ( Amer) Est GFR (Non-Af Amer) BUN/Creatinine Ratio Glucose POC Glucose Estimat Average Glucose Hemoglobin A1c Lactate 2.1 H* Calcium Magnesium Total Bilirubin AST ALT Alkaline Phosphatase Troponin I High Sens Total Protein Albumin Globulin Albumin/Globulin Ratio Procalcitonin 3.54 H Urine Color Urine Appearance Urine pH Ur Specific [place] Urine Protein Urine Glucose (UA) Urine Ketones Urine Blood Urine Nitrite Urine Bilirubin Urine Urobilinogen Ur Leukocyte Esterase Urine WBC (Auto) Urine RBC (Auto) U Hyaline Cast (Auto) U Epithel Cells (Auto) Urine Bacteria (Auto) Urine Yeast SARS-CoV-2 (PCR) NEGATIVE Influenza Type A (PCR) Negative Influenza Type B (PCR) Negative RSV (RT-PCR) Negative 11/09/21 11/09/21 11/09/21 19:41 20:51 21:41 WBC RBC Hgb Hct MCV MCH MCHC RDW Std Deviation RDW Coeff of Rajinder Plt Count MPV Immature Gran % (Auto) Neut % (Auto) Lymph % (Auto) [place] % (Auto) Eos % (Auto) Baso % (Auto) Neut # (Auto) Lymph # (Auto) [place] # (Auto) Eos # (Auto) Baso # (Auto) Immature Gran # (Auto) Neutrophils % (Manual) Lymphocytes % (Manual) Monocytes % (Manual) Neutrophils # (Manual) Total Absolute Neuts Lymphocytes # (Manual) Total Abs Lymphocytes Monocytes # (Manual) Toxic Vacuolation Polychromasia PT INR APTT PTT Ratio Sodium Potassium 4.1 Chloride Carbon Dioxide Anion Gap BUN Creatinine Est Cr Clr Drug Dosing Est GFR ( Amer) Est GFR (Non-Af Amer) BUN/Creatinine Ratio Glucose POC Glucose Estimat Average Glucose Hemoglobin A1c Lactate 1.6 Calcium Magnesium Total Bilirubin AST 32 ALT Alkaline Phosphatase Troponin I High Sens Total Protein Albumin Globulin Albumin/Globulin Ratio Procalcitonin Urine Color Yellow Urine Appearance Turbid A Urine pH 5.5 Ur Specific [place] 1.018 Urine Protein 2+ H Urine Glucose (UA) 1+ H Urine Ketones Trace H Urine Blood 3+ H Urine Nitrite Negative Urine Bilirubin Negative Urine Urobilinogen Negative Ur Leukocyte Esterase 3+ H Urine WBC (Auto) >30 H Urine RBC (Auto) 0-4 U Hyaline Cast (Auto) 1-5 U Epithel Cells (Auto) 10-20 H Urine Bacteria (Auto) 4+ H Urine Yeast Not Reportable SARS-CoV-2 (PCR) Influenza Type A (PCR) Influenza Type B (PCR) RSV (RT-PCR) 06/11/22 06/12/22 06/12/22 21:41 00:35 05:38 WBC RBC Hgb Hct MCV MCH MCHC RDW Std Deviation RDW Coeff of Rajinder Plt Count MPV Immature Gran % (Auto) Neut % (Auto) Lymph % (Auto) [place] % (Auto) Eos % (Auto) Baso % (Auto) Neut # (Auto) Lymph # (Auto) [place] # (Auto) Eos # (Auto) Baso # (Auto) Immature Gran # (Auto) Neutrophils % (Manual) Lymphocytes % (Manual) Monocytes % (Manual) Neutrophils # (Manual) Total Absolute Neuts Lymphocytes # (Manual) Total Abs Lymphocytes Monocytes # (Manual) Toxic Vacuolation Polychromasia PT INR APTT PTT Ratio Sodium Potassium Chloride Carbon Dioxide Anion Gap BUN Creatinine Est Cr Clr Drug Dosing Est GFR ( Amer) Est GFR (Non-Af Amer) BUN/Creatinine Ratio Glucose POC Glucose 267 H Estimat Average Glucose Hemoglobin A1c Lactate Calcium Magnesium Total Bilirubin AST ALT Alkaline Phosphatase Troponin I High Sens 73.8 H* 85.2 H* D Total Protein Albumin Globulin Albumin/Globulin Ratio Procalcitonin Urine Color Urine Appearance Urine pH Ur Specific [place] Urine Protein Urine Glucose (UA) Urine Ketones Urine Blood Urine Nitrite Urine Bilirubin Urine Urobilinogen Ur Leukocyte Esterase Urine WBC (Auto) Urine RBC (Auto) U Hyaline Cast (Auto) U Epithel Cells (Auto) Urine Bacteria (Auto) Urine Yeast SARS-CoV-2 (PCR) Influenza Type A (PCR) Influenza Type B (PCR) RSV (RT-PCR) 11/10/21 11/10/21 11/10/21 05:38 05:38 05:38 WBC 21.08 H RBC 4.18 L Hgb 11.8 L Hct 36.6 L MCV 87.6 MCH 28.2 MCHC 32.2 RDW Std Deviation 45.2 RDW Coeff of Rajinder 14.0 Plt Count 141 MPV 11.1 H Immature Gran % (Auto) 0.9 Neut % (Auto) 85.0 Lymph % (Auto) 3.9 [place] % (Auto) 10.1 Eos % (Auto) 0.0 Baso % (Auto) 0.1 Neut # (Auto) 17.90 H Lymph # (Auto) 0.82 L [place] # (Auto) 2.13 H Eos # (Auto) 0.01 Baso # (Auto) 0.02 Immature Gran # (Auto) 0.20 H Neutrophils % (Manual) Lymphocytes % (Manual) Monocytes % (Manual) Neutrophils # (Manual) Total Absolute Neuts Lymphocytes # (Manual) Total Abs Lymphocytes Monocytes # (Manual) Toxic Vacuolation Polychromasia PT INR APTT PTT Ratio Sodium 130 L Potassium 4.3 Chloride 99 Carbon Dioxide 23 Anion Gap 8 BUN 40 H Creatinine 1.87 H D Est Cr Clr Drug Dosing 47.2 Est GFR ( Amer) 39.6 Est GFR (Non-Af Amer) 34.2 BUN/Creatinine Ratio 21.4 H Glucose 230 H POC Glucose Estimat Average Glucose Pending Hemoglobin A1c Pending Lactate Calcium 8.2 L Magnesium 2.0 Total Bilirubin 1.1 H AST 33 ALT 14 Alkaline Phosphatase 74 Troponin I High Sens Total Protein 6.3 Albumin 3.2 L Globulin 3.1 Albumin/Globulin Ratio 1.0 Procalcitonin Urine Color Urine Appearance Urine pH Ur Specific [place] Urine Protein Urine Glucose (UA) Urine Ketones Urine Blood Urine Nitrite Urine Bilirubin Urine Urobilinogen Ur Leukocyte Esterase Urine WBC (Auto) Urine RBC (Auto) U Hyaline Cast (Auto) U Epithel Cells (Auto) Urine Bacteria (Auto) Urine Yeast SARS-CoV-2 (PCR) Influenza Type A (PCR) Influenza Type B (PCR) RSV (RT-PCR) 11/10/21 07:51 WBC RBC Hgb Hct MCV MCH MCHC RDW Std Deviation RDW Coeff of Rajinder Plt Count MPV Immature Gran % (Auto) Neut % (Auto) Lymph % (Auto) [place] % (Auto) Eos % (Auto) Baso % (Auto) Neut # (Auto) Lymph # (Auto) [place] # (Auto) Eos # (Auto) Baso # (Auto) Immature Gran # (Auto) Neutrophils % (Manual) Lymphocytes % (Manual) Monocytes % (Manual) Neutrophils # (Manual) Total Absolute Neuts Lymphocytes # (Manual) Total Abs Lymphocytes Monocytes # (Manual) Toxic Vacuolation Polychromasia PT INR APTT PTT Ratio Sodium Potassium Chloride Carbon Dioxide Anion Gap BUN Creatinine Est Cr Clr Drug Dosing Est GFR ( Amer) Est GFR (Non-Af Amer) BUN/Creatinine Ratio Glucose POC Glucose 222 H Estimat Average Glucose Hemoglobin A1c Lactate Calcium Magnesium Total Bilirubin AST ALT Alkaline Phosphatase Troponin I High Sens Total Protein Albumin Globulin Albumin/Globulin Ratio Procalcitonin Urine Color Urine Appearance Urine pH Ur Specific [place] Urine Protein Urine Glucose (UA) Urine Ketones Urine Blood Urine Nitrite Urine Bilirubin Urine Urobilinogen Ur Leukocyte Esterase Urine WBC (Auto) Urine RBC (Auto) U Hyaline Cast (Auto) U Epithel Cells (Auto) Urine Bacteria (Auto) Urine Yeast SARS-CoV-2 (PCR) Influenza Type A (PCR) Influenza Type B (PCR) RSV (RT-PCR) Diagnostic Findings urine cx - GNR blood cx's - negative PG Care Time/CCT Total # of Minutes Spent Total Time Spent with Patient: Total time spent is greater than 50% in coordination of care (as documented) at patient's floor/unit and/or counseling patient: Coding Level of Care Code 22869 Subseq Hosp Care Lvl 3 Diagnoses Sepsis A41.9 Sepsis acute organ dysfunction status: unspecified Sepsis type: sepsis due to unspecified organism Acute dehydration E86.0 Urinary tract infection N30.00 Hematuria presence: without hematuria Urinary tract infection type: acute cystitis BPH with obstruction/lower urinary tract symptoms N40.1; N13.8 Elevated troponin R77.8 Weakness R53.1 Chronic kidney disease, stage III (moderate) N18.3 Hypertension I10 Hyperlipidemia E78.5 Esophageal reflux K21.9 Diabetes mellitus type 2 with complications E11.8 Depression F32.9 Arteriosclerotic coronary artery disease I25.10 DVT prophylaxis Z29.9 Acute metabolic encephalopathy G93.41 (1) Urinary tract infection Hematuria presence: without hematuria Urinary tract infection type: acute cystitis Qualified Code(s): N30.00 - Acute cystitis without hematuria (2) Sepsis Sepsis acute organ dysfunction status: unspecified Sepsis type: sepsis due to unspecified organism Qualified Code(s): A41.9 - Sepsis, unspecified organism
[2021-11-10] MEDS: INSULIN GLARGINE SOLOSTAR 100 UNITS/ML 3 ML PEN SC SCH (09:45)
--- NOTE | 2021-11-10 12:25 | Electrocardiogram Report ---
Test Reason : Blood Pressure : / mmHG Vent. Rate : 118 BPM Atrial Rate : 118 BPM P-R Int : 158 ms QRS Dur : 120 ms QT Int : 338 ms P-R-T Axes : 036 -66 042 degrees QTc Int : 473 ms Sinus tachycardia Left axis deviation Non-specific intra-ventricular conduction delay Abnormal ECG When compared with ECG of 17-DEC-2020 22:06, Vent. rate has increased BY 63 BPM Questionable change in QRS duration Confirmed by [place] ([id number]) on 11/10/2021 12:24:58 PM Referred By: REFERRED SELF Confirmed By:Jake Grover
--- NOTE | 2021-11-10 12:29 | Electrocardiogram Report ---
Test Reason : Blood Pressure : / mmHG Vent. Rate : 080 BPM Atrial Rate : 080 BPM P-R Int : 174 ms QRS Dur : 136 ms QT Int : 386 ms P-R-T Axes : 047 -40 043 degrees QTc Int : 445 ms Normal sinus rhythm Left axis deviation Right bundle branch block Abnormal ECG When compared with ECG of 09-NOV-2021 19:00, (unconfirmed) Questionable change in QRS duration Confirmed by [place] ([id number]) on 11/10/2021 12:29:05 PM Referred By: REFERRED SELF Confirmed By:Jake Grover
[2021-11-10] MEDS: FINASTERIDE 5 MG TAB PO SCH (12:34)
[2021-11-10] MEDS ORDERED: INSULIN HUMAN 70% NPH/30% REGULAR SQ SCH (16:30)
[2021-11-10] MEDS ORDERED: CEFEPIME 2,000 MG in SYRINGE 0 ML IV SCH (18:00)
[2021-11-10] MEDS: TAMSULOSIN HCL 0.4 MG CAP PO SCH (20:19)
[2021-11-11] MEDS: ENOXAPARIN INJ 40 MG/0.4 ML SYR SQ SCH ×2 (05:15→16:58)
[2021-11-11 07:26] LABS: Estimated Average Glucose 160 mg/dl; Hemoglobin A1C 7.2 % (4.5-5.6)
[2021-11-11 07:45] LABS: Basophils # (auto) 0.01 K/uL (0-0.2); Basophils % (auto) 0.1 %; Eosinophils # (auto) 0.07 K/uL (0-0.5); Eosinophils % (auto) 0.5 %; Hematocrit (blood only) 33.2 % (42-52); Hemoglobin 10.8 g/dL (14.0-18.0); Immature Granulocytes % (auto) 0.7 %; Lymphocytes # (auto) 0.58 K/uL (1.2-3.4); Mean Corpuscular Hemoglobin 28.9 pg (25-34); Mean Corpuscular Hgb Conc 32.5 g/dL (32-36); Mean Corpuscular Volume 88.8 fL (80-100); Monocytes % (auto) 10.2 %; Neutrophils # (auto) 12.38 K/uL (1.4-6.5); Neutrophils % (auto) 84.5 %; Platelet Count 144 K/uL (130-400); RDW Coefficient of Variation 13.8 % (11.5-14.5); RDW Standard Deviation 45.3 fL (36.4-46.3); Red Blood Count 3.74 M/uL (4.7-6.1); White Blood Count 14.64 K/uL (4.8-10.8)
[2021-11-11 08:08] LABS: Albumin Level 2.9 gm/dl (3.4-5.0); BUN Creatinine Ratio 20.3 (10-20); Bilirubin,Total 0.8 mg/dl (0.2-1.0); Calcium 7.9 mg/dl (8.5-10.1); Creatinine Clr Calc Pharmacy 43.7 ml/min; Est GFR (African American) 36.1 ml/min; Est GFR (Non-African American) 31.1 ml/min; Globulin 2.9 gm/dl (2.5-4.0); Magnesium 2.1 mg/dl (1.7-2.4); Potassium 4.2 mmol/L (3.5-5.1); Total Protein 5.8 gm/dl (6.0-8.3)
[2021-11-11] MEDS: SODIUM CHLORIDE 0.9% 1000ML 1,000 ML IV SCH (08:22)
[2021-11-11] MEDS: METOPROLOL TARTRATE 25 MG TAB PO SCH ×2 (08:23→20:44)
[2021-11-11] MEDS: PANTOprazole 40 MG TAB PO SCH ×2 (08:23→20:44)
[2021-11-11] MEDS: DULoxetine HCL 30 MG CAP PO SCH (08:23)
[2021-11-11] MEDS: ASCORBIC ACID 500 MG TAB PO SCH (08:23)
[2021-11-11] MEDS: FOLIC ACID 400 MCG TAB PO SCH (08:23)
[2021-11-11] MEDS: MULTIVITAMIN CHEWABLE TAB PO SCH (08:23)
[2021-11-11] MEDS: DULoxetine HCL 60 MG CAP PO SCH (08:23)
[2021-11-11] MEDS: FINASTERIDE 5 MG TAB PO SCH (08:23)
[2021-11-11] MEDS: GABAPENTIN 400 MG CAP PO SCH ×3 (08:24→20:43)
[2021-11-11] MEDS: INSULIN GLARGINE SOLOSTAR 100 UNITS/ML 3 ML PEN SC SCH (08:24)
[2021-11-11] MEDS: CLOPIDOGREL BISULFATE 75 MG TAB PO SCH (08:24)
[2021-11-11] MEDS: INSULIN ASPART PER UNIT SC SCH ×4 (08:26→20:43)
[2021-11-11] MEDS: PRAVASTATIN SOD 20 MG TAB PO SCH (08:38)
[2021-11-11] MEDS: ADVANCED PROBIOTIC 1250 MG CAPSULE PO SCH (10:59)
[2021-11-11] MEDS: cefTRIAXone SODIUM 2,000 MG in DEXTROSE 5% 50 ML IV SCH (10:59)
--- NOTE | 2021-11-11 13:36 | Hospitalist Progress Note ---
Date of Service November 11, 2021 Assessment & Plan (1) Sepsis: Plan: 2nd to E.Coli UTI and probable pyelonephritis. Can't rule out prostatitis given his BPH. d/c cefepime; switch to IV rocephin 2gm daily. May be able to narrow even further but keep on rocephin for now. follow blood cultures but thus far negative. leukocytosis continues to improve. hemodynamically stable. he may continue to have low grade fever for another day or two given the presence of pyelonephritis. (2) Pyelonephritis: Plan: probable see #1 above (3) Urinary tract infection: Plan: See #1 above. Urine cx with pansensitive e.coli d/c cefepime change to IV rocephin 2gm daily Will need AYUSH at some point (or PSA) to r/o acute prostatitis (4) Acute diastolic CHF (congestive heart failure): Plan: mild respiratory distress today; sats low 90s; cxr with pulmonary edema; exam c/w same. stop IV fluids. bumex 1mg IV x 1. follow response. given lethargy, h/o untreated JB, and VBG showing borderline low pH will place on low pressure BIPAP while sleeping. of note - records show he had echo through [facility] system in 01/2021 with preserved EF. (5) BPH with obstruction/lower urinary tract symptoms: Plan: Was already taking flomax 0.8mg daily at home pre-admission and despite such was having LUTS. Added finasteride daily. Last psa early 2021 was wnl. Continue morales. (6) Acute dehydration: Plan: resolved, now clinically volume overloaded. stop IV fluids. (7) Elevated troponin: Plan: Troponin 80.7 upon admission. This is likely myocardial demand ischemia in setting of sepsis/UTI. No ischemic symptoms. EKG without ST changes. Follow. (8) Weakness: Plan: 2nd to #1. Will need PT/OT when able to participate. (9) Chronic kidney disease, stage III (moderate): Plan: Baseline CrCl is about 30. Repeat Cr today stable at 2. Repeat BMP am. (10) Hypertension: Plan: Cont metoprolol tartrate BID (11) Hyperlipidemia: Plan: Continue pravastatin (12) Esophageal reflux: Plan: Continue pantoprazole (13) Diabetes mellitus type 2 with complications: Plan: Hold metformin HOLD 70/30 Cont lantus 15 units qam Cont novolog SSI BSGs ac/hs Reasonable control with all BSGs <200 follow (14) Depression: Plan: Continue duloxetine (15) Arteriosclerotic coronary artery disease: Plan: follows with [facility] h/o CAD s/p LAD stent just saw cardiology 08/2021 in the [employer] cards office has f/u with them in 03/2022 last echo 01/2021 - LV wnl, normal wall motion; has known aortic root dilatation (16) Acute metabolic encephalopathy: Plan: 2nd to sepsis/UTI, hyponatremia, etc antibiotics supportive care avoid sedatives (17) DVT prophylaxis: Plan: lovenox (18) JB (obstructive sleep apnea): Plan: was dx sometime within the last 5-10 years previously on CPAP or BIPAP but stopped using it 3-4 years ago given his lethargy, and given VBG findings (pH 7.35, pCO2 45) - will place him on low pressure BIPAP while sleeping Plan: updated pt's daughter by phone this evening extensively once again questions answered Admission and Anticipated Discharge Date Admission Date: November 09, 2021 Subjective tele stable overnight pt was confused during the visit could not offer much in the way of meaningful history or ROS he was very sleepy during my visit did wake to name being called, but quickly went back to sleep staff report he did eat breakfast and lunch but in between meals he has been lethargic had low-grade fever again this am - 37.8 Review of Systems Review of Systems: Unobtainable due to cognitive status Physical Exam Physical Exam: gen - obese, lethargic, confused, audible wheeze noted; snoring when he falls alseep mouth - MM dry neck - JVD present heart - RRR, s1 s2, no murmur lungs - b/l basilar rales; end-exp wheezes b/l; mild tachypnea abd - soft NT ND BS+; no flank tenderness ext - no edema, pulses 2+ b/l psych - oriented to person, place but not time; lethargic skin - no rash Results & Data Results & Data ([facility]) Vital Signs (Past 12 Hours) Vital Signs Temp Pulse Resp BP Pulse Ox 11/11/21 11:18 37.8 C H 61 20 124/65 91 11/11/21 08:00 37.8 C H 80 20 146/70 H 96 11/11/21 03:10 37.0 C 74 20 130/64 94 Laboratory Results BMP - Na 130 Cr 2 urine cx - e.coli, pansensitive blood cx's negative Diagnostic Findings cxr - pulm edema CT abd/pelvis - spoke with radiology - there is left sided urothelial thickening with infiltration/stranding L kidney; slightly on right as well PG Care Time/CCT Total # of Minutes Spent Total Time Spent with Patient: Total time spent is greater than 50% in coordination of care (as documented) at patient's floor/unit and/or counseling patient: Coding Level of Care Code 71264 Subseq Hosp Care Lvl 3 Diagnoses Sepsis A41.9 Sepsis acute organ dysfunction status: unspecified Sepsis type: sepsis due to unspecified organism Acute dehydration E86.0 Urinary tract infection N30.00 Hematuria presence: without hematuria Urinary tract infection type: acute cystitis BPH with obstruction/lower urinary tract symptoms N40.1; N13.8 Elevated troponin R77.8 Weakness R53.1 Chronic kidney disease, stage III (moderate) N18.3 Hypertension I10 Hyperlipidemia E78.5 Esophageal reflux K21.9 Diabetes mellitus type 2 with complications E11.8 Depression F32.9 Arteriosclerotic coronary artery disease I25.10 Acute metabolic encephalopathy G93.41 DVT prophylaxis Z29.9 Pyelonephritis N12 Acute diastolic CHF (congestive heart failure) I50.31 JB (obstructive sleep apnea) G47.33 (1) Urinary tract infection Hematuria presence: without hematuria Urinary tract infection type: acute cystitis Qualified Code(s): N30.00 - Acute cystitis without hematuria (2) Sepsis Sepsis acute organ dysfunction status: unspecified Sepsis type: sepsis due to unspecified organism Qualified Code(s): A41.9 - Sepsis, unspecified organism
--- NOTE | 2021-11-11 14:10 | XRay Report ---
SINGLE VIEW CHEST CLINICAL HISTORY: Dyspnea and wheezing FINDINGS: An AP, portable, upright chest radiograph is compared to study dated 11/09/2021. The cardiom ediastinal heart is enlarged noting atherosclerotic calcification of the thoracic aorta. There is pro minence of the pulmonary vasculature. Atelectasis is noted at the lung bases. No large pleural effusi on or pneumothorax is seen. The skeletal structures are osteopenic. The bony thorax is grossly intact . IMPRESSION: 1. Cardiomegaly with prominence of the pulmonary vasculature. Correlate clinically for evidence of fl uid overload/mild congestive failure. 2. No airspace consolidation or large pleural effusion is identified. ACT 112: Negative or not required by law. Electronically signed by: Clarke Montez M.D. 11/11/2021 2:09 PM
[2021-11-11] MEDS ORDERED: BUMETANIDE 1 MG in SYRINGE 0 ML IV ONE (15:15)
[2021-11-11 15:16] LABS: Base Excess VBG -1.3 mEq/L; HCO3 VBG 25 mmol/L; Oxygen Saturation VBG < 60.0 %; PCO2 VBG 46 mmHg (38-50); PO2 VBG 25 mmHg; pH VBG 7.35 (7.36-7.41)
[2021-11-11] MEDS: ACETAMINOPHEN 325 MG TAB PO PRN (16:51)
[2021-11-11] MEDS: TAMSULOSIN HCL 0.4 MG CAP PO SCH (20:45)
[2021-11-12] MEDS: ACETAMINOPHEN 325 MG TAB PO PRN (03:22)
[2021-11-12] MEDS: ENOXAPARIN INJ 40 MG/0.4 ML SYR SQ SCH ×2 (05:37→17:30)
[2021-11-12] MEDS: GABAPENTIN 400 MG CAP PO SCH ×3 (07:59→21:09)
[2021-11-12] MEDS: DULoxetine HCL 30 MG CAP PO SCH (07:59)
[2021-11-12] MEDS: MULTIVITAMIN CHEWABLE TAB PO SCH (07:59)
[2021-11-12] MEDS: DULoxetine HCL 60 MG CAP PO SCH (07:59)
[2021-11-12] MEDS: CLOPIDOGREL BISULFATE 75 MG TAB PO SCH (07:59)
[2021-11-12] MEDS: ASCORBIC ACID 500 MG TAB PO SCH (07:59)
[2021-11-12 08:00] LABS: Basophils # (auto) 0.01 K/uL (0-0.2); Basophils % (auto) 0.1 %; Eosinophils # (auto) 0.09 K/uL (0-0.5); Eosinophils % (auto) 1.2 %; Hematocrit (blood only) 31.9 % (42-52); Hemoglobin 10.8 g/dL (14.0-18.0); Immature Granulocytes # (auto) 0.28 K/uL (0.00-0.02); Immature Granulocytes % (auto) 3.6 %; Lymphocytes # (auto) 0.43 K/uL (1.2-3.4); Lymphocytes % (auto) 5.6 %; Mean Corpuscular Hemoglobin 29.2 pg (25-34); Mean Corpuscular Hgb Conc 33.9 g/dL (32-36); Mean Corpuscular Volume 86.2 fL (80-100); Mean Platelet Volume 11.2 fL (7.4-10.4); Monocytes # (auto) 1.37 K/uL (0.11-0.59); Monocytes % (auto) 17.8 %; Neutrophils # (auto) 5.51 K/uL (1.4-6.5); Neutrophils % (auto) 71.7 %; Nucleated RBC # (auto) 0.02 K/uL (0-0); Nucleated RBC % (auto) 0.3 %; Platelet Count 158 K/uL (130-400); RDW Coefficient of Variation 13.9 % (11.5-14.5); White Blood Count 7.69 K/uL (4.8-10.8)
[2021-11-12] MEDS: ADVANCED PROBIOTIC 1250 MG CAPSULE PO SCH (08:00)
[2021-11-12] MEDS: FOLIC ACID 400 MCG TAB PO SCH (08:00)
[2021-11-12] MEDS: FINASTERIDE 5 MG TAB PO SCH (08:00)
[2021-11-12] MEDS: PANTOprazole 40 MG TAB PO SCH ×2 (08:00→21:08)
[2021-11-12] MEDS: METOPROLOL TARTRATE 25 MG TAB PO SCH ×2 (08:00→21:08)
[2021-11-12] MEDS: PRAVASTATIN SOD 20 MG TAB PO SCH (08:01)
[2021-11-12 08:19] LABS: Albumin Globulin Ratio 0.9 (0.9-2); BUN Creatinine Ratio 20.4 (10-20); Bilirubin,Total 0.5 mg/dl (0.2-1.0); Creatinine Clr Calc Pharmacy 43.2 ml/min; Est GFR (African American) 35.2 ml/min; Est GFR (Non-African American) 30.4 ml/min; Globulin 3.2 gm/dl (2.5-4.0); Magnesium 2.1 mg/dl (1.7-2.4); Potassium 3.4 mmol/L (3.5-5.1); Total Protein 6.2 gm/dl (6.0-8.3)
[2021-11-12] MEDS: INSULIN ASPART PER UNIT SC SCH ×4 (08:30→21:10)
[2021-11-12] MEDS: cefTRIAXone SODIUM 2,000 MG in DEXTROSE 5% 50 ML IV SCH (09:01)
[2021-11-12] MEDS: INSULIN GLARGINE SOLOSTAR 100 UNITS/ML 3 ML PEN SC SCH (09:44)
--- NOTE | 2021-11-12 15:05 | Hospitalist Progress Note ---
Date of Service November 12, 2021 Assessment & Plan (1) Sepsis: Plan: 2nd to E.Coli UTI and probable pyelonephritis. Can't rule out prostatitis given his BPH. initially on cefepime and now changed to IV rocephin 2gm daily. Plan to convert to po abx to finish out a 14 day course on discharge follow blood cultures but thus far negative. leukocytosis resolved hemodynamically stable. no further fevers except low grade temp at 0400 today Improving overall, gaining strength maintain Morales but do TOV before discharge bowel regimen-add on senna/docusate (2) Pyelonephritis: Plan: probable as above (3) Urinary tract infection: Plan: as baove Urine cx with pansensitive e.coli IV rocephin 2gm daily no AYUSH indicated as could spread/seed bacteremia if with acute prostatitis (4) Acute diastolic CHF (congestive heart failure): Plan: mild respiratory distress now improved with IV Bumex cxr with pulmonary edema; with some mild wheeze today, syill dsome dyspnea with complete sentences as per daughter stopped IV fluids. bumex 1mg IV to be given again today replace K+ lethargy improved, VBG normal of note - records show he had echo through [facility] system in 01/2021 with preserved EF. (5) BPH with obstruction/lower urinary tract symptoms: Plan: Was already taking flomax 0.8mg daily at home pre-admission and despite such was having LUTS. Added finasteride daily. Last psa early 2021 was wnl. Continue morales and do TOV prior to discharge (6) Acute dehydration: Plan: resolved, now clinically volume overloaded. diuresing (7) Elevated troponin: Plan: Troponin 80.7 upon admission. This is likely myocardial demand ischemia in setting of sepsis/UTI. No ischemic symptoms. EKG without ST changes. can take off tele . (8) Weakness: Plan: improving PT/OT recommend return home (9) Chronic kidney disease, stage III (moderate): Plan: Baseline CrCl is about 30. Repeat Cr today stable at 2. Repeat BMP am. 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: Plan: Hold metformin HOLD 70/30 Cont lantus 15 units qam Cont novolog SSI BSGs ac/hs Reasonable control with all BSGs <200 follow (14) Depression: Plan: Continue duloxetine (15) Arteriosclerotic coronary artery disease: Plan: follows with [facility] h/o CAD s/p LAD stent just saw cardiology 08/2021 in the [facility] [employer] cards office has f/u with them in 03/2022 last echo 01/2021 - LV wnl, normal wall motion; has known aortic root dilatation continue Plavix, statin (16) Acute metabolic encephalopathy: Plan: 2nd to sepsis/UTI, hyponatremia, etc now much improved as per daughter at bedside antibiotics supportive care avoid sedatives (17) JB (obstructive sleep apnea): Plan: was dx sometime within the last 5-10 years previously on CPAP or BIPAP but stopped using it 3-4 years ago given his lethargy, and given VBG findings (pH 7.35, pCO2 45) -placed him on low pressure BIPAP while sleeping -will need outpt follow up (18) DVT prophylaxis: Plan: lovenox Plan: updated pt's daughter at bedside Dispo-hopefull for dc to home tomorrow with home health Admission and Anticipated Discharge Date Admission Date: November 09, 2021 Subjective Pt feeling "60% better," but feels constipated. Appetite improving. Daughter at bedside thinks he is much improved with mentation. Pt denies SOB but daughter still thinks he seems SOB with speaking complete sentences. Tele with NSR, PVCs, normal rates Review of Systems Review of Systems: All systems reviewed & are unremarkable except as noted in HPI & below Physical Exam Constitutional: WD/WN, vitals as above Eyes: + anicteric sclerae Neck: trachea midline, no thyromegaly Respiratory: normal respiratory effort, lungs clear to auscultation (except slight exp wheeze bilat) Cardiovascular: RRR, no murmur, no edema Chest (Breasts): Chest: normal inspection of chest Gastrointestinal (Abdomen): normal bowel sounds, soft, nontender, no hepatosplenomegaly Musculoskeletal: Extremities: extremities normal to inspection; no cyanosis and no clubbing Skin: no rashes, warm and dry Neurologic: moves all extremities and awake; no focal motor deficits Psychiatric: A+Ox3, euthymic affect Lymphatic: no lymphedema Results & Data Results & Data ([facility]) Vital Signs (Past 12 Hours) Vital Signs Temp Pulse Pulse Resp BP BP Pulse Ox 11/12/21 11:08 37.0 C 61 20 110/68 99 11/12/21 07:33 67 11/12/21 07:11 64 18 96 11/12/21 06:45 36.1 C L 67 20 153/73 H 95 11/12/21 05:40 36.6 C 11/12/21 04:15 75 19 91 Laboratory Results 11/12/21 11/12/21 11/12/21 Range/Units 11:23 07:28 06:35 WBC (4.8-10.8) K/uL RBC (4.7-6.1) M/uL Hgb (14.0-18.0) g/dL Hct (42-52) % MCV (80-100) fL MCH (25-34) pg MCHC (32-36) g/dL RDW Std Deviation (36.4-46.3) fL RDW Coeff of Rajinder (11.5-14.5) % Plt Count (130-400) K/uL MPV (7.4-10.4) fL Immature Gran % (Auto) % Neut % (Auto) % Lymph % (Auto) % [place] % (Auto) % Eos % (Auto) % Baso % (Auto) % Neut # (Auto) (1.4-6.5) K/uL Lymph # (Auto) (1.2-3.4) K/uL [place] # (Auto) (0.11-0.59) K/uL Eos # (Auto) (0-0.5) K/uL Baso # (Auto) (0-0.2) K/uL Immature Gran # (Auto) (0.00-0.02) K/uL Absolute Nucleated RBC (0-0) K/uL Nucleated RBC % (auto) % VBG pH (7.36-7.41) VBG pCO2 (38-50) mmHg VBG pO2 mmHg VBG HCO3 mmol/L VBG O2 Saturation % VBG Base Excess mEq/L Barometric Pressure mm/Hg Sodium 130 L (136-145) mmol/L Potassium 3.4 L (3.5-5.1) mmol/L Chloride 99 (98-107) mmol/L Carbon Dioxide 22 (21-32) mmol/L Anion Gap 9 (3-11) BUN 42 H (6-23) mg/dl Creatinine 2.06 H (0.6-1.4) mg/dl Est Cr Clr Drug Dosing 43.2 ml/min Est GFR ( Amer) 35.2 ml/min Est GFR (Non-Af Amer) 30.4 ml/min BUN/Creatinine Ratio 20.4 H (10-20) Glucose 168 H (70-99(Fasting)) mg/dl POC Glucose 177 H 172 H (70-99) mg/dl Calcium 8.0 L (8.5-10.1) mg/dl Magnesium 2.1 (1.7-2.4) mg/dl Total Bilirubin 0.5 (0.2-1.0) mg/dl AST 24 (13-39) U/L ALT 17 (7-52) U/L Alkaline Phosphatase 68 (34-104) U/L Ammonia (18-72) umol/L Total Protein 6.2 (6.0-8.3) gm/dl Albumin 3.0 L (3.4-5.0) gm/dl Globulin 3.2 (2.5-4.0) gm/dl Albumin/Globulin Ratio 0.9 (0.9-2) 11/12/21 11/11/21 11/11/21 Range/Units 06:35 20:10 16:44 WBC 7.69 (4.8-10.8) K/uL RBC 3.70 L (4.7-6.1) M/uL Hgb 10.8 L (14.0-18.0) g/dL Hct 31.9 L (42-52) % MCV 86.2 (80-100) fL MCH 29.2 (25-34) pg MCHC 33.9 (32-36) g/dL RDW Std Deviation 44.0 (36.4-46.3) fL RDW Coeff of Rajinder 13.9 (11.5-14.5) % Plt Count 158 (130-400) K/uL MPV 11.2 H (7.4-10.4) fL Immature Gran % (Auto) 3.6 % Neut % (Auto) 71.7 % Lymph % (Auto) 5.6 % [place] % (Auto) 17.8 % Eos % (Auto) 1.2 % Baso % (Auto) 0.1 % Neut # (Auto) 5.51 (1.4-6.5) K/uL Lymph # (Auto) 0.43 L (1.2-3.4) K/uL [place] # (Auto) 1.37 H (0.11-0.59) K/uL Eos # (Auto) 0.09 (0-0.5) K/uL Baso # (Auto) 0.01 (0-0.2) K/uL Immature Gran # (Auto) 0.28 H (0.00-0.02) K/uL Absolute Nucleated RBC 0.02 H (0-0) K/uL Nucleated RBC % (auto) 0.3 % VBG pH (7.36-7.41) VBG pCO2 (38-50) mmHg VBG pO2 mmHg VBG HCO3 mmol/L VBG O2 Saturation % VBG Base Excess mEq/L Barometric Pressure mm/Hg Sodium (136-145) mmol/L Potassium (3.5-5.1) mmol/L Chloride (98-107) mmol/L Carbon Dioxide (21-32) mmol/L Anion Gap (3-11) BUN (6-23) mg/dl Creatinine (0.6-1.4) mg/dl Est Cr Clr Drug Dosing ml/min Est GFR ( Amer) ml/min Est GFR (Non-Af Amer) ml/min BUN/Creatinine Ratio (10-20) Glucose (70-99(Fasting)) mg/dl POC Glucose 187 H 158 H (70-99) mg/dl Calcium (8.5-10.1) mg/dl Magnesium (1.7-2.4) mg/dl Total Bilirubin (0.2-1.0) mg/dl AST (13-39) U/L ALT (7-52) U/L Alkaline Phosphatase (34-104) U/L Ammonia (18-72) umol/L Total Protein (6.0-8.3) gm/dl Albumin (3.4-5.0) gm/dl Globulin (2.5-4.0) gm/dl Albumin/Globulin Ratio (0.9-2) 11/11/21 11/11/21 Range/Units 14:49 14:49 WBC (4.8-10.8) K/uL RBC (4.7-6.1) M/uL Hgb (14.0-18.0) g/dL Hct (42-52) % MCV (80-100) fL MCH (25-34) pg MCHC (32-36) g/dL RDW Std Deviation (36.4-46.3) fL RDW Coeff of Rajinder (11.5-14.5) % Plt Count (130-400) K/uL MPV (7.4-10.4) fL Immature Gran % (Auto) % Neut % (Auto) % Lymph % (Auto) % [place] % (Auto) % Eos % (Auto) % Baso % (Auto) % Neut # (Auto) (1.4-6.5) K/uL Lymph # (Auto) (1.2-3.4) K/uL [place] # (Auto) (0.11-0.59) K/uL Eos # (Auto) (0-0.5) K/uL Baso # (Auto) (0-0.2) K/uL Immature Gran # (Auto) (0.00-0.02) K/uL Absolute Nucleated RBC (0-0) K/uL Nucleated RBC % (auto) % VBG pH 7.35 L (7.36-7.41) VBG pCO2 46 (38-50) mmHg VBG pO2 25 mmHg VBG HCO3 25 mmol/L VBG O2 Saturation < 60.0 % VBG Base Excess -1.3 mEq/L Barometric Pressure 729.4 mm/Hg Sodium (136-145) mmol/L Potassium (3.5-5.1) mmol/L Chloride (98-107) mmol/L Carbon Dioxide (21-32) mmol/L Anion Gap (3-11) BUN (6-23) mg/dl Creatinine (0.6-1.4) mg/dl Est Cr Clr Drug Dosing ml/min Est GFR ( Amer) ml/min Est GFR (Non-Af Amer) ml/min BUN/Creatinine Ratio (10-20) Glucose (70-99(Fasting)) mg/dl POC Glucose (70-99) mg/dl Calcium (8.5-10.1) mg/dl Magnesium (1.7-2.4) mg/dl Total Bilirubin (0.2-1.0) mg/dl AST (13-39) U/L ALT (7-52) U/L Alkaline Phosphatase (34-104) U/L Ammonia 26.0 (18-72) umol/L Total Protein (6.0-8.3) gm/dl Albumin (3.4-5.0) gm/dl Globulin (2.5-4.0) gm/dl Albumin/Globulin Ratio (0.9-2) PG Care Time/CCT Total # of Minutes Spent Total Time Spent with Patient: Total time spent is greater than 50% in coordination of care (as documented) at patient's floor/unit and/or counseling patient: Coding Level of Care Code 25279 Subseq Hosp Care Lvl 2 Diagnoses Sepsis A41.9 Sepsis acute organ dysfunction status: unspecified Sepsis type: sepsis due to unspecified organism Pyelonephritis N12 Urinary tract infection N30.00 Hematuria presence: without hematuria Urinary tract infection type: acute cystitis Acute diastolic CHF (congestive heart failure) I50.31 BPH with obstruction/lower urinary tract symptoms N40.1; N13.8 Acute dehydration E86.0 Elevated troponin R77.8 Weakness R53.1 Chronic kidney disease, stage III (moderate) N18.3 Hypertension I10 Hyperlipidemia E78.5 Esophageal reflux K21.9 Diabetes mellitus type 2 with complications E11.8 Depression F32.9 Arteriosclerotic coronary artery disease I25.10 Acute metabolic encephalopathy G93.41 DVT prophylaxis Z29.9 JB (obstructive sleep apnea) G47.33 (1) Urinary tract infection Hematuria presence: without hematuria Urinary tract infection type: acute cystitis Qualified Code(s): N30.00 - Acute cystitis without hematuria (2) Sepsis Sepsis acute organ dysfunction status: unspecified Sepsis type: sepsis due to unspecified organism Qualified Code(s): A41.9 - Sepsis, unspecified organism
[2021-11-12] MEDS ORDERED: POTASSIUM CHLORIDE CRTAB 20 MEQ TABCR PO STA (15:07)
[2021-11-12] MEDS ORDERED: BUMETANIDE 1 MG in SYRINGE 0 ML IV ONE (15:15)
[2021-11-12] MEDS: DOCUSATE SODIUM/SENNA 50/8.6MG TAB PO SCH (16:29)
[2021-11-12] MEDS: TAMSULOSIN HCL 0.4 MG CAP PO SCH (21:08)
[2021-11-13] MEDS: ENOXAPARIN INJ 40 MG/0.4 ML SYR SQ SCH (05:54)
[2021-11-13 07:41] LABS: BUN Creatinine Ratio 22.9 (10-20); Calcium 8.1 mg/dl (8.5-10.1); Creatinine Clr Calc Pharmacy 46.3 ml/min; Est GFR (African American) 39.3 ml/min; Est GFR (Non-African American) 33.9 ml/min; Magnesium 2.1 mg/dl (1.7-2.4); Potassium 3.6 mmol/L (3.5-5.1)
[2021-11-13] MEDS: ASCORBIC ACID 500 MG TAB PO SCH (08:24)
[2021-11-13] MEDS: DULoxetine HCL 60 MG CAP PO SCH (08:24)
[2021-11-13] MEDS: DULoxetine HCL 30 MG CAP PO SCH (08:24)
[2021-11-13] MEDS: DOCUSATE SODIUM/SENNA 50/8.6MG TAB PO SCH (08:24)
[2021-11-13] MEDS: ADVANCED PROBIOTIC 1250 MG CAPSULE PO SCH (08:24)
[2021-11-13] MEDS: CLOPIDOGREL BISULFATE 75 MG TAB PO SCH (08:25)
[2021-11-13] MEDS: GABAPENTIN 400 MG CAP PO SCH ×2 (08:25→14:45)
[2021-11-13] MEDS: FINASTERIDE 5 MG TAB PO SCH (08:25)
[2021-11-13] MEDS: METOPROLOL TARTRATE 25 MG TAB PO SCH (08:25)
[2021-11-13] MEDS: MULTIVITAMIN CHEWABLE TAB PO SCH (08:25)
[2021-11-13] MEDS: FOLIC ACID 400 MCG TAB PO SCH (08:25)
[2021-11-13] MEDS: INSULIN GLARGINE SOLOSTAR 100 UNITS/ML 3 ML PEN SC SCH (08:26)
[2021-11-13] MEDS: PANTOprazole 40 MG TAB PO SCH (08:26)
[2021-11-13] MEDS: PRAVASTATIN SOD 20 MG TAB PO SCH (08:28)
[2021-11-13] MEDS: INSULIN ASPART PER UNIT SC SCH ×2 (08:28→12:21)
[2021-11-13] MEDS: cefTRIAXone SODIUM 2,000 MG in DEXTROSE 5% 50 ML IV SCH (08:34)
--- NOTE | 2021-11-13 14:09 | Discharge Summary ---
Date of Service November 13, 2021 Admission HPI Per Admitting Provider The patient is a 76-year-old male with a past medical history including urinary tract infection, BPH with LUTS, degenerative knee arthritis, CKD stage III, B12 deficiency, JB, hypertension, hyperlipidemia, GERD, balance disorder, CAD and symptomatic anemia. His daughter had checked on the patient earlier in the morning, and reported that he was sleeping in bed but was also incontinent. Later on in the day when she checked on him, he was less responsive, and EMS was called to assess the patient. The patient denied any recent falls or trauma and had no specific complaints, but was noted to be lethargic Principal Diagnosis Sepsis, Acute metabolic encephalopathy, Pyelonephritis, UTI Discharge Exam Constitutional WD/WN, vitals as above Eyes + anicteric sclerae Neck trachea midline, no thyromegaly Respiratory normal respiratory effort, lungs clear to auscultation Cardiovascular RRR, no murmur, no edema Chest (Breasts) Chest: normal inspection of chest Gastrointestinal (Abdomen) normal bowel sounds, soft, nontender, no hepatosplenomegaly Musculoskeletal Extremities: extremities normal to inspection; no cyanosis and no clubbing Skin no rashes, warm and dry Neurologic moves all extremities and awake; no focal motor deficits Psychiatric A+Ox3, euthymic affect Lymphatic no lymphedema Discharge Data Allergies Allergy/AdvReac Type Severity Reaction Status Date / Time aspirin Allergy Intermediate HIVES Verified 11/09/21 20:34 Consultations 11/09/21 21:20 ED Decision to Admit Stat Ordered Studies 11/09/21 19:18 CT abd pelvis wo con Stat CT head/brain wo con Stat Hospital Course (1) Sepsis: 2nd to E.Coli UTI and probable pyelonephritis. Can't rule out prostatitis given his BPH. initially on cefepime and then narrowed coverage down to IV rocephin 2gm daily. Plan to convert to po abx to finish out a 14 day course on discharge with po cefdinir 300mg bid blood cultures but thus far negative x 4 days leukocytosis resolved hemodynamically stable. no further fevers Improving overall, gaining strength, moving bowels, eating and drinking well, encephalopathy resolved dc Morales and passed TOV prior to discharge (2) Pyelonephritis: probable as above (3) Urinary tract infection: as above Urine cx with pansensitive e.coli IV rocephin 2gm daily and convert to po cefdinir on dc as above (4) Acute diastolic CHF (congestive heart failure): Came on after recovery from sepsis, was getting IVFs mild respiratory distress now improved with IV Bumex daily x 2 days cxr with pulmonary edema, now clinically resolved of note - records show he had echo through [facility] system in 01/2021 with preserved EF. (5) BPH with obstruction/lower urinary tract symptoms: Was already taking flomax 0.8mg daily at home pre-admission and despite such was having LUTS. Added finasteride daily. Last psa early 2021 was wnl. dcd morales and passed TOV prior to discharge (6) Elevated troponin: Troponin 80.7 upon admission. This is likely myocardial demand ischemia in setting of sepsis/UTI. No ischemic symptoms. EKG without ST changes. (7) Weakness: improving PT/OT recommend return home (8) Chronic kidney disease, stage III (moderate): Baseline CrCl is about 30. Repeat Cr improved down to baseline 1.8 follow as outpatient ok to resume metformin at home (9) Hypertension: BPs controlled Cont metoprolol tartrate BID (10) Hyperlipidemia: Continue pravastatin (11) Esophageal reflux: Continue pantoprazole (12) Diabetes mellitus type 2 with complications: restart home meds on discharge (13) Depression: Continue duloxetine (14) Arteriosclerotic coronary artery disease: follows with [facility] h/o CAD s/p LAD stent just saw cardiology 08/2021 in the [employer] [facility] office has f/u with them in 03/2022 last echo 01/2021 - LV wnl, normal wall motion; has known aortic root dilatation continue Plavix, statin (15) Acute metabolic encephalopathy: 2nd to sepsis/UTI, hyponatremia, etc now resolved (16) JB (obstructive sleep apnea): was dx sometime within the last 5-10 years previously on CPAP or BIPAP but stopped using it 3-4 years ago given his lethargy, and given VBG findings (pH 7.35, pCO2 45) -placed him on low pressure BIPAP while sleeping -will need outpt follow up to get CPAP again (17) DVT prophylaxis: lovenox Dispo- dc to home today with home health Total Time Total Time Spent Total Time Spent (In Minutes): 40 min Discharge Plan Discharge Items Patient Disposition: Home - Home Health Services Reason For Visit: SEPSIS DUE TO UTI Discharge Diagnosis: Sepsis, pyelonephritis, prostatitis Condition on Discharge: Good Activity: As commented below Lifting: Gradually increase as tolerated Bathing: No limitations Exercise/Sports: Gradually increase as tolerated Exercise Comment: with home PT/OT Non-emergency contact: Primary Care Provider Call non-emergency contact if: you have any medication questions, your symptoms worsen, you have a fever and your temperature is above 101 Follow-up/Referrals: ProGm MD [Primary Care Provider] - (Follow up within 1-2 weeks) Diet: Carb Consistent or DM2 and Heart Healthy Addtl Attending Provider Instructions: Please finish out 9 more days of the antibiotic called cefdinir twice a day for your urinary tract and kidney infection. Because you were requiring a catheter in your bladder for enlarged prostate and urinary retention, you were started on finasteride. This medication helps to shrink the prostate over time to prevent you from retaining your urine. It is also recommended that you have a repeat sleep study as an outpatient to see about getting back on your CPAP machine for sleep apnea. Follow up with your PCP within 1-2 weeks after discharge. Pending Studies at Discharge: Yes (Final blood cultures-no growth to date) Stand-Alone Forms: My [facility] [employer], Smoking Cessation Medications and DC Order Prescriptions: New finasteride [Proscar] 5 mg Tablet 5 mg PO QAM Qty: 30 RF: 0 cefdinir 300 mg capsule 300 mg PO BID Qty: 18 RF: 0 Continued calcium citrate-vitamin D3 [Citracal + D Maximum] 315 mg- 250 unit tablet 1 tab PO BID RF: 0 nitroglycerin 0.4 mg tablet, sublingual 0.4 mg SL Q5M PRN (Reason: chest pain) Qty: 20 RF: 1 pantoprazole 40 mg tablet,delayed release (DR/EC) 40 mg PO BID Qty: 180 RF: 3 duloxetine 30 mg capsule,delayed release(DR/EC) 30 mg PO DAILY Qty: 90 RF: 3 duloxetine 60 mg capsule,delayed release(DR/EC) 60 mg PO DAILY Qty: 90 RF: 3 pravastatin 20 mg tablet 20 mg PO DAILY Qty: 90 RF: 3 metformin 1,000 mg tablet 1,000 mg PO BID Qty: 180 RF: 3 clopidogrel 75 mg tablet 75 mg PO DAILY Qty: 90 RF: 3 metoprolol tartrate 25 mg tablet 25 mg PO BID Qty: 180 RF: 1 tamsulosin 0.4 mg capsule 0.8 mg PO PM 90 Days Qty: 180 RF: 3 cyanocobalamin (vitamin B-12) 1,000 mcg/mL solution 1,000 mcg IM MONTHLY RF: 0 Flintstones Complete tablet,chewable 1 tab PO DAILY RF: 0 (DME) Accu-Chek Compact Plus Test strip See Dose Instructions .ROUTE .MEDSUPPLY Qty: 51 RF: 0 (DME) BD Luer-Torres Syringe 3 mL 25 x 5/8" syringe See Dose Instructions .ROUTE .MEDSUPPLY Qty: 1 RF: 0 Humulin 70/30 U-100 Insulin 100 unit/mL (70-30) suspension 22 - 36 unit SQ QPM RF: 0 ascorbic acid (vitamin C) 250 mg tablet 250 mg PO DAILY Qty: 30 RF: 0 folic acid 400 mcg tablet 0.4 mg PO DAILY RF: 0 gabapentin 400 mg capsule 400 mg PO TID RF: 0 Discharge Orders: Discharge Order (Routine); Ordered 11/13/21 Ordered By: Lena Diallo/Other Patient Handouts: Managing Type 2 Diabetes Admission Data Admit Date/Time: 11/09/21 21:31 Attending Provider: Lena Isaac Admit Provider: Renzo Webber Primary Care Provider: Gm Villatoro Other Providers: [employer] ; Renzo Webber Coding Level of Care Code D/C DAY MANAGEMENT >30 MINS Diagnoses Sepsis A41.9 Sepsis acute organ dysfunction status: unspecified Sepsis type: sepsis due to unspecified organism Pyelonephritis N12 Urinary tract infection N30.00 Hematuria presence: without hematuria Urinary tract infection type: acute cystitis Acute diastolic CHF (congestive heart failure) I50.31 BPH with obstruction/lower urinary tract symptoms N40.1; N13.8 Elevated troponin R77.8 Weakness R53.1 Chronic kidney disease, stage III (moderate) N18.3 Hypertension I10 Hyperlipidemia E78.5 Esophageal reflux K21.9 Diabetes mellitus type 2 with complications E11.8 Depression F32.9 Arteriosclerotic coronary artery disease I25.10 Acute metabolic encephalopathy G93.41 JB (obstructive sleep apnea) G47.33 DVT prophylaxis Z29.9
== END 2021-11-13 15:20 | disposition home health service (06) | DRG 871 ==
LOC: ED 18:51 → SUATTDRO 21:31 → 2W 21:31